=== PATIENT | female | born 1980 | race Caucasian/White ===

== ENCOUNTER 2023-10-27 07:53 | Outpatient (OUT) | payer BC, SELFPAY ==
--- NOTE | 2023-10-27 08:04 | MM_ITS ---
Patient Name: DELVIS SALCEDO MR#: [id number] : 1980 Exam Date: 10/27/2023 Ordering Doctor: DR Ra Potter D.O. RADIOLOGY REPORT PROCEDURE: MM TOMOSYNTHESIS SCREENING BI COMPARISON: MG MAMM SCREEN 3D ELIEL CAD, 04/23/2020. INDICATIONS: Screening mammogram Calculator Name NCI Breast Cancer Risk Assessment Tool 5 Year Breast Cancer Risk 1.20% Lifetime Breast Cancer Risk 14.20% Personal Breast Cancer No Personal Ovarian Cancer No Treatments None Family Cancers None LOCATION: [facility] BREAST COMPOSITION: The breasts are heterogeneously dense,which may obscure small masses. FINDINGS: DIAGNOSTIC CATEGORY 1--NEGATIVE. NO CHANGE FROM COMPARISON ASSESSMENT. Scattered benign-appearing calcifications are present. Scattered benign-appearing lymph nodes are present. RIGHT BREAST: No significant suspicious finding. LEFT BREAST: No significant suspicious finding. RECOMMENDATIONS: ROUTINE MAMMOGRAM AND CLINICAL EVALUATION IN 12 MONTHS. PLEASE NOTE: A NORMAL MAMMOGRAM DOES NOT EXCLUDE THE POSSIBILITY OF BREAST CANCER. A CLINICALLY SUSPICIOUS PALPABLE LUMP SHOULD BE BIOPSIED. Dictated by: Yandel Narvaez MD on 10/27/2023 at 12:10 Approved by: Yandel Narvaez MD on 10/27/2023 at 12:11
[2023-10-27 08:37] LABS: Basophils Percent Auto 0.6 % (0.2-2.0); Eosinophils Absolute Auto 0.1 10^3/uL (0.0-0.7); Hemoglobin 13.9 g/dL (12.0-16.0); Immature Granulocytes Abs Auto 0.01 10^3/uL (0.00-0.03); Immature Granulocytes Pct Auto 0.2 % (0.0-0.5); Lymphocytes Absolute Auto 1.8 10^3/uL (1.2-3.8); Mean Corpuscular HGB Conc 33.9 g/dL (29.9-35.2); Mean Corpuscular Hemoglobin 32.5 pg (26.7-34.0); Mean Corpuscular Volume 95.8 fL (81.0-99.0); Mean Platelet Volume 10.2 fL (9.5-13.5); Monocytes Absolute Auto 0.3 10^3/uL (0.3-0.8); Monocytes Percent Auto 6.3 % (1.7-12.0); Neutrophils Percent Auto 57.9 % (43.0-75.0); Platelet Count 210 10^3/uL (150-450); Red Blood Count 4.28 10^6/uL (4.20-5.40); Red Cell Distribution Width 12.6 % (11.0-15.0); White Blood Count 5.2 10^3/uL (4.0-11.0)
[2023-10-27 09:24] LABS: Alanine Aminotransferase 20 U/L (14-59); Albumin Globulin Ratio 1.1; Albumin Level 3.8 g/dL (3.4-5.0); Alkaline Phosphatase 51 U/L (46-116); Anion Gap 9.3; Aspartate Amino Transferase 19 U/L (15-37); BUN Creatinine Ratio 17.6; Bilirubin Total 0.6 mg/dL (0.2-1.0); Calcium 8.9 mg/dL (8.5-10.1); Carbon Dioxide 29.9 mmol/L (21.0-32.0); Chloride 100 mmol/L (98-107); Chol HDL Ratio 2.6; Cholesterol 183 mg/dL (<=200); Estimated GFR (African America >60 (>=60); Estimated GFR (Non-African Ame >60 (>=60); Globulin 3.4 g/dL; Glucose 104 mg/dL (74-106); HDL Cholesterol 70 mg/dL (40-60); Potassium 4.2 mmol/L (3.5-5.1); Sodium 135 mmol/L (136-145); Total Protein 7.2 g/dL (6.4-8.2); Triglycerides 81 mg/dL (<=150); VLDL CHOLESTEROL 16.2 mg/dL
== END 2023-10-27 07:54 | disposition home or self-care (01) ==
LOC: MAMMO 07:59
PROVIDERS: PCP Internal Medicine; Visit Provider Internal Medicine
DX: Z00.00 Encounter for general adult medical examination without abnormal findings (principal); Z12.31 Encounter for screening mammogram for malignant neoplasm of breast
CPT/HCPCS: 36415; 77063; 77067; 80053; 80061; 84443; 85025

== ENCOUNTER 2024-02-15 10:33 | Outpatient (REF) | payer BC, SELFPAY ==
--- OUTSIDE RECORDS SUMMARY | 2024-02-20 10:52 | XMS_ITS | CCD ---
Author Organization [facility] Team Providers Care Forensic Scientist Name Role Phone JUANITA DIAZ Unavailable Unavailable MAXWELL RAMIREZ Unavailable Unavailable MAXWELL RAMIREZ Unavailable Unavailable JAMES, MAXWELL Unavailable Unavailable Kitty Byrnes Unavailable Ra Potter MD Primary Care Provider Kade Chavez DO Attending Provider Medications Current Medications Medication Drug Class(es) Dates Sig (Normalized) Sig (Original) azithromycin 250 mg oral tablet (1 source) Macrolide Antimicrobial Start: 01-16-2021 Zithromax 250 MG 2 tablet on the first day, then 1 tablet daily for 4 days Orally Once a day for 5 day(s) Jan, Active benzonatate 100 mg oral capsule (1 source) Non-narcotic Antitussive Start: 01-16-2021 take 1 capsule by mouth three times daily as needed Tessalon Perles 100 MG 1 capsule as needed Orally Three times a day for 10 day(s) 1 capsule p.o. 3 times daily as needed for Jan, Active fluticasone propionate 0.05 mg/actuat metered dose nasal spray (1 source) Corticosteroid Start: 01-16-2021 take 2 spray(s) nasal route once daily Fluticasone Propionate 50 MCG/ACT 2 sprays Nasally Once a day for 14 day(s) Jan, Active Loratadine (1 source) Claritin Active predniSONE 20 mg oral tablet (1 source) Start: 01-16-2021 take 1 tablet by mouth every twelve hours predniSONE 20 MG 1 tablet Orally bid for 5 day(s) Jan, Active Completed/Discontinued Medications Medication Drug Class(es) Dates Sig (Normalized) Sig (Original) Childrens Vitamins 60 MG (1 source) take 1 tablet by mouth once daily Childrens Vitamins 60 MG 1 tablet Orally Once a day for 30 day(s) Not-Taking doxycycline hyclate 100 mg oral capsule (6 sources) Tetracycline-class Drug Start: 4 End: 4 take 1 capsule by mouth twice daily Doxycycline Hyclate 100 mg capsule Discontinued 100 MG PO Twice daily 14 September 26, 2023 12:17pm October 18, 2023 7:32am Fluticasone Furoate 27.5 MCG/SPRAY (1 source) Start: 1 take 2 puff(s) nasal route once daily Fluticasone Furoate 27.5 MCG/SPRAY 2 puffs Nasally Once a day Oct, Not-Taking methylPREDNISolone 4 mg oral tablet (4 sources) Corticosteroid Start: 4 End: 4 take 1 tablet by mouth once Methylprednisolone (Medrol (Jason)) 4 mg tablets,dose pack Discontinued 0 PO per package directions September 05, 2023 11:00pm September 11, 2023 8:41am PO PER PKG DIR mupirocin 0.02 mg/mg topical ointment (6 sources) RNA Synthetase Inhibitor Antibacterial Start: 4 End: 4 Mupirocin 2 % ointment Discontinued 1 APPLIC TOPICAL Twice daily 22 September 26, 2023 12:17pm October 18, 2023 7:42am triamcinolone acetonide 1 mg/ml topical cream (4 sources) Corticosteroid Start: 4 End: 4 Triamcinolone Acetonide 0.1 % cream Discontinued 1 APPLIC TOPICAL Twice daily 15 September 05, 2023 11:00pm October 18, 2023 7:42am Apply a thin layer to affected areas twice daily for 7 days Problems Active Problems Problem Classification Problem Date Documented Date Episodic/Chronic Bacterial infection; unspecified site (5 sources) Staphylococcal infectious disease; Translations: [Unspecified staphylococcus as the cause of diseases classified elsewhere] 09-19-2023 Episodic Conditions associated with dizziness or vertigo (5 sources) Labyrinthitis, unspecified ear; Translations: [Vertigo] Onset: 06-16-2017 09-06-2023 Episodic E Codes: Natural/environment (9 sources) Insect bite - wound; Translations: [Bitten or stung by nonvenomous insect and other nonvenomous arthropods, initial encounter] 09-06-2023 Episodic Menstrual disorders (9 sources) Menorrhagia; Translations: [Excessive and frequent menstruation with regular cycle] Onset: 02-15-2024 09-06-2023 Chronic Other screening for suspected conditions (not mental disorders or infectious disease) (6 sources) Patient encounter status; Translations: [Encounter for screening for malignant neoplasm of colon] 10-18-2023 Episodic Other skin disorders (3 sources) Folliculitis; Translations: [Follicular disorder, unspecified] 09-19-2023 Episodic Other skin disorders (1 source) Follicular disorder, unspecified; Translations: [Other specified diseases of hair and hair follicles] 10-18-2023 Episodic Screening or history of mental health and substance abuse (1 source) Personal history of nicotine dependence; Translations: [PERSONAL HISTORY OF NICOTINE DEPEND] Onset: 06-16-2017 Episodic Syncope (4 sources) Syncope and collapse; Translations: [SYNCOPE AND COLLAPSE] Onset: 06-14-2017 Episodic Past or Other Problems Problem Classification Problem Date Documented Da te Episodic/Chronic Allergic reactions (3 sources) Inflammatory dermatosis; Translations: [Dermatitis, unspecified] Onset: 09-19-2016 09-06-2023 Episodic Chronic obstructive pulmonary disease and bronchiectasis (1 source) Bronchitis, not specified as acute or chronic Onset: 01-16-2021 Resolved: 01-16-2021 Episodic Genitourinary symptoms and ill-defined conditions (3 sources) Increased frequency of urination; Translations: [Frequency of micturition] Onset: 08-24-2015 09-06-2023 Episodic Immunizations and screening for infectious disease (1 source) Contact with and (suspected) exposure to other viral communicable diseases Onset: 01-16-2021 Resolved: 01-16-2021 Episodic Malaise and fatigue (3 sources) Fatigue; Translations: [Other fatigue] Onset: 12-09-2015 09-06-2023 Episodic Other connective tissue disease (3 sources) Prepatellar bursitis of right knee; Translations: [Prepatellar bursitis, right knee] Onset: 10-12-2016 09-06-2023 Episodic Other skin disorders (5 sources) Hirsutism; Translations: [Hirsutism] Onset: 11-15-2006 09-06-2023 Episodic Other upper respiratory infections (1 source) Acute sinusitis, unspecified Onset: 01-16-2021 Resolved: 01-16-2021 Episodic Results Test Name Value Interpretation Reference Range Facility Endometrial biopsyon 025 Alejandra OconnorELIANE 02/15/2024 10:30 AM Endometrial biopsy Date/Time: 02/15/2024 10:17 AM Performed by: Kade Chavez DO Authorized by: Kade Chavez DO Consent: Consent obtained: written Consent given by: patient Patient agrees, verbalizes understanding, and wants to proceed: yes Indications: Indications: abnormal uterine bleeding Pre-procedure: Urine test: negative Procedure: A bimanual exam was performed: no Tenaculum used: yes A local block was performed: no Local anesthetic: none Cervix dilated: no Findings: Cervix: normal Specimen collected: specimen collected and sent to pathology [facility] [employer] e HCG ( test) Ql (U)o n 02-15-2024 Interpretation and review of laboratory results Normal [facility] [employer] ([place]) Preg Test, Ur Negative Negative [facility] magn[employer] e COVID Quick Testingon 2020 Result Negative edo Other CARDIAC KARLI ADMITon 018 CKMB 0.30 ng/mL Normal <=2.37 [facility] Comment on above: Performed By: #### B JIM MEHTA ####[facility] Btsgclxfkw27[address] [place] Creatine kinase (CK) 84 U/L Normal 30-135 [facility] Comment on above: Performed By: #### B JIM MEHTA ####[facility] [address]wt[address]df94[address] [place] [id number] INR Coag RelTime (Bld) SEE BELOW Normal [facility] Comment on above: Result Comment: <0.0 34 ng/ml NEGATIVE 0.034-0.119 INDETERMINATE 0.120 AMI CUT OFF Performed By: #### B JIM MEHTA ####[facility] Vnkcnbzmox5037 [place] [id number] SURINDER 43.1 ng/mL Normal <=61.5 [facility] Comment on above: Performed By: #### B JIM MEHTA ####[facility] Fqjfrddctj4608 [address] [place] TROP <0.012 Normal <=0.034 [facility] Comment on above: Performed By: #### B JIM MEHTA ####[facility] [address] [place] [address] [place] CBC W MANUAL DIFFon 06-15-19 18 BAND # 0.2 103/ul Normal 0.0-0.3 [facility] Comment on above: Performed By: #### Velma MEDRANO ####[facility] [address] [place] [address] [place] BAND % 3 % Normal 0-5 [facility] Comment on above: Performed By: #### Velma MEDRANO ####[facility] [address] [place] [address] [place] BASOM % 0.0 % Critically low 0.2-2.0 [facility] Comment on above: Performed By: #### Velma MEDRANO ####[facility] [address] [place] [address] [place] Basophils Auto #/vol (Bld) 0.00 103/ul Normal 0.00-0.10 [facility] Comment on above: Performed By: #### Velma MEDRANO ####[facility] [address] [place] [address] [place] BLAST # Normal [facility] Comment on above: Performed By: #### Velma MEDRANO ####[facility] [address] [place] [address] [place] BLAST % Normal [facility] Comment on above: Performed By: #### Velma MEDRANO ####[facility] [address] [place] [address] [place] Eosinophils 0.00 103/ul Normal 0.00-0.70 [facility] Comment on above: Performed By: #### Velma MEDRANO ####[facility] [address] [place], [place] [address]palak Roqueen Eosinophils/100 leukocytes 0.0 % Critically low 0.9-7.0 [facility] Comment on above: Performed By: #### C MITCHELL ####[facility] Ntezlqndpb2102 [address] [place] Erythrocyte distribution width Auto Ratio (RBC) 12.8 % Normal 11.0-15.0 [facility] Comment on above: Performed By: #### C MITCHELL ####[facility] [address] [place] [address] [place] Erythrocytes (RBC) 4.68 106/ul Normal 4.20-5.40 [facility] Comment on above: Performed By: #### C MITCHELL ####[facility] [address] [place] [address] [place] Erythrocytes (RBC) Normal [facility] Comment on above: Performed By: #### C MITCHELL ####[facility] [address] [place] [address] [place] Hematocrit (HCT) 43.0 % Normal 36.0-48.0 [facility] Comment on above: Performed By: #### C MITCHELL ####[facility] [address] [place] [address] [place] Hemoglobin mass conc (Bld) 14.8 g/dL Normal 12.0-16.0 [facility] Comment on above: Performed By: #### Velma MEDRANO ####[facility] [address] [place] [address] [place] Lymphocytes 0.66 103/ul Critically low 1.20-3.80 [facility] Comment on above: Performed By: #### Velma MEDRANO ####[facility] [address] [place] [address] [place] Lymphocytes Normal [facility] Comment on above: Performed By: #### C MITCHELL ####[facility] Rpgybegjcp3699 [address] [place] Lymphocytes/100 leukocytes 10.0 % Critically low 20.5-60.0 [facility] Comment on above: Performed By: #### Velma MEDRANO ####[facility] Vzakboarfd7746 [address] [place] Lymphocytes/100 leukocytes Normal [facility] Comment on above: Performed By: #### Velma MEDRANO ####[facility] Lgeohqynqn2361 [place] [id number] MCH 31.6 pg Normal 26.7-34.0 [facility] Comment on above: Performed By: #### Velma MEDRANO ####[facility] Oswwmdcfoh5070 [place] [id number] MCHC mass conc (RBC) 34.4 g/dL Normal 29.9-35.2 [facility] Comment on above: Performed By: #### Velma MEDRANO ####[facility] [address] [place] [address] [place] MCV 91.9 fL Normal 81.0-99.0 [facility] Comment on above: Performed By: #### Velma MEDRANO ####[facility] [address] [place] [address] [place] METAMYELOCYTE # Normal [facility] Comment on above: Performed By: #### Velma MEDRANO ####[facility] Vxndwsqmlv3786 [address] [place] METAMYELOCYTE % Normal [facility] Comment on above: Performed By: #### Velma MEDRANO ####[facility] [address] [place] [address] [place] MONOM# 0.40 103/ul Normal 0.30-0.80 [facility] Comment on above: Performed By: #### Velma MEDRANO ####[facility] Uijlfnxloa9087 [address] [place] MONOM% 6.0 % Normal 1.7-12.0 [facility] Comment on above: Performed By: #### Velma MEDRANO ####[facility] [address] [place] [address] [place] MYELOCYTE # Normal [facility] Comment on above: Performed By: #### Velma MEDRANO ####[facility] Tsmrqhuelc2294 [place], [place] [address]Njnvag [place] MYELOCYTE % Normal [facility] Comment on above: Performed By: #### Velma MEDRANO ####[facility] Dmyeohkduq8897 [place], [place] [address]Gvvwqy [place] Platelet mean volume (PMV) 11.3 fL Normal 9.5-13.5 [facility] Comment on above: Performed By: #### Velma MEDRANO ####[facility] Prtbhvmktu7974 [place], [place] [address]Xeaole [place] Platelets 137 103/ul Critically low 150-450 [facility] Comment on above: Performed By: #### Velma MEDRANO ####[facility] Qsyoutjxwl6706 [place] [id number] SEG # 5.35 103/ul Normal 1.40-6.50 [facility] Comment on above: Performed By: #### Velma MEDRANO ####[facility] Amultgfmrm0484 [place] [id number] Segmented Neutrophils/100 leukocytes 81.0 % Critically high 43.0-75.0 [facility] Comment on above: Performed By: #### Velma MEDRANO ####[facility] Ilmsybjswz1784 [place] [id number] WBC (Leukocytes) 6.6 103/ul Normal 4.0-11.0 [facility] Comment on above: Performed By: #### Velma MEDRANO ####[facility] Ypqpoqobhe1188 [place] [id number] WBC (Leukocytes) Normal 4.0-11.0 [facility] Comment on above: Performed By: #### Velma MEDRANO ####[facility] Chmcqmlaja3101 [place], [place] [address]Hwwvir [place] ER URINE PROFILEon 8 Bilirubin (total) Negative Normal NEGATIVE [facility] Comment on above: Performed By: #### MIRTA JAVED ####[facility] Evxteclcmg0476 [place], [place] [address]Vqvukb [place] BLOOD TRACE-INTACT Normal NEGATIVE [facility] Comment on above: Performed By: #### PATRICIO JAVEDRO ####[facility] Ozxeyimwdi1231 [address] [place] ERUAHD A micrscopic examination will be performed if indicated. Normal [facility] Comment on above: Performed By: #### PATRICIO JAVEDRO ####[facility] Rcglvjblec7636 [address] [place] Glucose mass conc Negative Normal NEGATIVE [facility] Comment on above: Performed By: #### CARLITA JAVEDICRO ####[facility] Fpmldypweg4440 [address] [place] pH of blood 6.0 [pH] Normal 5-9 [facility] Comment on above: Performed By: #### CARLITA JAVEDICRO ####[facility] Gogssdaqgt7712 [address] [place] Protein Negative Normal [facility] Comment on above: Performed By: #### CARLITA JAVEDICRO ####[facility] Nejxjswvpj8521 [address] [place] SPEC GRAVITY 1.025 Normal 1.005-<=1.025 [facility] Comment on above: Performed By: #### CARLITA JAVEDICRO ####[facility] [address] [place] [address] [place] UR MICRO IND INDICATED Normal [facility] Comment on above: Performed By: #### Tatum MORALES UMICRO ####[facility] Rxydwabsuc5628 [place] [id number] Urine, clarity CLEAR Normal [facility] Comment on above: Performed By: #### CARLITA JAVEDICRO ####[facility] Jpsavdsrae4892 [address] [place] Urine, color YELLOW Normal YELLOW [facility] Comment on above: Performed By: #### CARLITA JAVEDICRO ####[facility] Azjfkfvgyx3290 [address] [place] Urine, ketones presence Negative Normal NEGATIVE [facility] Comment on above: Performed By: #### MIRTA JAVED ####[facility] Stwvrawbfl[address]12 [address] [place] Urine, nitrite presence Negative Normal NEGATIVE [facility] Comment on above: Performed By: #### MIRTA JAVED ####[facility] [address] [place] [address] [place] Urine, urobilinogen 0.2 {Stephanie'U}/dL Normal [facility] Comment on above: Performed By: #### MIRTA JAVED ####[facility] X[address] [place] [address] [place] WBC (Leukocytes) Negative Normal NEGATIVE [facility] Comment on above: Performed By: #### MIRTA JAVED ####[facility] [address] [place] [address] [place] PREG HCG QUALon 06-14-2017 , QUAL Negative Normal NEGATIVE [facility] Comment on above: Performed By: #### P REG ####[facility] [address] [place] [address] [place] PROF CHEM 8 (BAS METB)on Anion gap 12.5 mmol/L Normal [facility] Comment on above: Performed By: #### B JIM MEHTA ####[facility] [address] [place] [address] [place] BUN/Creatinine Ratio 16.1 mg/mg Normal [facility] Comment on above: Performed By: #### B JIM MEHTA ####[facility] [address] [place] [address] [place] Calcium 9.6 mg/dL Normal 8.4-10.2 [facility] Comment on above: Performed By: #### B LEILA MEHTADM ####[facility] Ujufawgtou64[address] [place] Chloride 102 mmol/L Normal 98-107 [facility] Comment on above: Performed By: #### B TYSON, CMADM ####[facility] Wqqsdtgdgc9101 [place] [phone] CO2 26.0 mmol/L Normal 22.0-30.0 [facility] Comment on above: Performed By: #### B TYSON, CMADM ####[facility] Letseslxyh5182 [place] [phone] Creatinine 0.74 mg/dL Normal 0.52-1.04 [facility] Comment on above: Performed By: #### B TYSON, CMADM ####[facility] Khrezfkbpq8271 [place] [id number] eGFR (non-black) mL/min/{1.73_m2} Normal >=60 [facility] Comment on above: Performed By: #### B TYSON, CMADM ####[facility] Abfgtqqhwd1041 [place] [phone] Glucose mass conc 94 mg/dL Normal 74-106 [facility] Comment on above: Performed By: #### B TYSON, CMADM ####[facility] Jhblwibijh[address] [place] Potassium molar conc 4.2 mmol/L Normal 3.4-5.0 [facility] Comment on above: Performed By: #### B TYSON, CMADM ####[facility] Vbxxicskxd2197 [place] [phone] Sodium 137 mmol/L Normal 137-145 [facility] Comment on above: Performed By: #### B TYSON, CMADM ####[facility] Cmnwnnpego3042 [place] [phone] Urea nitrogen 12.0 mg/dL Normal 7.0-17.0 [facility] Comment on above: Performed By: #### B TYSON, CMADM ####[facility] Arxcrhjdcu2740 [place] [phone] URINE MICROSCOPIC ONLYon CAST NONE SEEN Normal NONE SEEN [facility] Comment on above: Performed By: #### MIRTA JAVED ####[facility] Idyhrmstkt9963 [place] [phone] CULTURE NOT INDICATED Normal [facility] Comment on above: Performed By: #### MIRTA JAVED ####[facility] Ehpztexwbs9228 [place], [place] [address]Dvcowq [place] Erythrocytes (RBC) 2-5 Normal 0-2 [facility] Comment on above: Performed By: #### MIRTA JAVED ####[facility] Xlipytnijm7329 [place], [place] [address]Kjlzde [place] MUCOUS MODERATE Normal NONE SEEN [facility] Comment on above: Performed By: #### MIRTA JAVED ####[facility] Qvvtherplf7911 [place] [phone] Urine, bacteria in sediment NONE SEEN Normal NONE SEEN [facility] Comment on above: Performed By: #### MIRTA JAVED ####[facility] [address] [place], [place] [address] Urine, crystals in sediment NONE SEEN Normal NONE SEEN [facility] Comment on above: Performed By: #### MIRTA JAVED ####[facility] Colowzplnr5380 [place] [phone] Urine, epithelial cells in sediment FEW Normal [facility] Comment on above: Performed By: #### MIRTA JAVED ####[facility] Ttssbcltrm9546 [place] [phone] WBC (Leukocytes) NONE SEEN Normal NONE SEEN [facility] Comment on above: Performed By: #### MIRTA JAVED ####[facility] [address] [place] [address]Cvjrsa [place] Vital Signs Date Time Vital Sign Value Performing Clinician Facility 02-15-2024 09:44-0500 Body mass index (BMI) [Ratio] 25.13 kg/m2 Kade Kathy Istpika Work Phone: [facility] 02-15-2024 09:44-0500 Body weight 68.49 kg Kade Kathy DO Work Phone: [facility] 02-15-2024 09:44-0500 Diastolic blood pressure 70 mm[Hg] Kade Kathy DO Work Phone: [facility] 02-15-2024 09:44-0500 Systolic blood pressure 118 mm[Hg] Kade Kathy DO Work Phone: [facility] 12-13-2023 13:53-0500 Body height 165.1 cm Kade Kathy DO Work Phone: [facility] 12-13-2023 13:53-0500 Body mass index (BMI) [Ratio] 24.1 kg/m2 Kade Kathy DO Work Phone: [facility] 12-13-2023 13:53-0500 Body weight 65.68 kg Kade Kathy DO Work Phone: [facility] 12-13-2023 13:53-0500 Diastolic blood pressure 70 mm[Hg] Kade Kathy DO Work Phone: [facility] 12-13-2023 13:53-0500 Systolic blood pressure 120 mm[Hg] Kade Kathy DO Work Phone: [facility] 10-18-2023 08:42-0400 Body height 165.1 cm [facility] [place] 10-18-2023 08:42-0400 Body mass index (BMI) [Ratio] 24.7 kg/m2 [facility] 10-18-2023 08:42-0400 Body weight 67.3 kg [facility] 10-18-2023 08:42-0400 Diastolic blood pressure 89 mm[Hg] [facility] 10-18-2023 08:42-0400 Heart rate 74 /min [facility] 10-18-2023 08:42-0400 Respiratory rate 12 /min [facility] 10-18-2023 08:42-0400 Systolic blood pressure 134 mm[Hg] [facility] 09-19-2023 08:58-0400 Body height 165.1 cm [facility] 09-19-2023 08:58-0400 Body mass index (BMI) [Ratio] 23.7 kg/m2 [facility] 09-19-2023 08:58-0400 Body weight 64.63 kg [facility] 09-19-2023 08:58-0400 Diastolic blood pressure 92 mm[Hg] [facility] 09-19-2023 08:58-0400 Heart rate 79 /min [facility] 09-19-2023 08:58-0400 Respiratory rate 12 /min [facility] 09-19-2023 08:58-0400 Systolic blood pressure 142 mm[Hg] [facility] 09-11-2023 09:40-0400 Body height 165.1 cm [facility] 09-11-2023 09:40-0400 Body mass index (BMI) [Ratio] 23.3 kg/m2 [facility] 09-11-2023 09:40-0400 Body temperature 99.4 [degF] [facility] 09-11-2023 09:40-0400 Body weight 63.5 kg [facility] 09-11-2023 09:40-0400 Heart rate 75 /min [facility] 09-11-2023 09:40-0400 Respiratory rate 18 /min [facility] 09-11-2023 09:40-0400 SaO2% (BldA) [Mass fraction] 99 % [facility] 09-06-2023 10:56-0400 Body height 165.1 cm [facility] 09-06-2023 10:56-0400 Body mass index (BMI) [Ratio] 23.3 kg/m2 [facility] 09-06-2023 10:56-0400 Body temperature 98.4 [degF] [facility] 09-06-2023 10:56-0400 Body weight 63.5 kg [facility] 09-06-2023 10:56-0400 Diastolic blood pressure 83 mm[Hg] [facility] 09-06-2023 10:56-0400 Heart rate 77 /min [facility] 09-06-2023 10:56-0400 Respiratory rate 18 /min [facility] 09-06-2023 10:56-0400 SaO2% (BldA) [Mass fraction] 98 % [facility] 09-06-2023 10:56-0400 Systolic blood pressure 132 mm[Hg] [facility] 01-16-2021 14:00-0500 Body height 165.1 cm Kitty Geemond Other [employer] [facility] [employer] Other 01-16-2021 14:00-0500 Body mass index (BMI) [Ratio] 20.8 kg/m2 Kitty Geemond Other [facility] Other 01-16-2021 14:00-0500 Body temperature 97.1 [degF] Kitty Geemond Other [employer] Other 01-16-2021 14:00-0500 Body weight 56.7 kg Kitty Byrnes Other [facility] Other 01-16-2021 14:00-0500 Respiratory rate 18 /min Kitty Byrnes Other [facility] Other 01-16-2021 14:00-0500 SaO2% (BldA) [Mass fraction] 99 % Kitty Geemond Other ed[employer] Other Encounters Encounter Date Encounter Type Care Provider Facility Start: 02-15-2024 End: 02-15-2024 Patient encounter procedure Kade Kathy DO Work Phone: [facility] Comment on above: Menorrhagia with reg ular cycle Start: 02-15-2024 End: 02-15-2024 ambulatory Kade Kathy DO Work Phone: [facility] Work Phone: Start: 02-15-2024 End: 02-15-2024 Departed Referred Kade Kathy DO Work Phone: [facility] Start: 12-13-2023 End: 12-13-2023 Bamboo flowsheet Kade Kathy DO Work Phone: [facility] Start: 12-13-2023 End: 12-13-2023 Bamboo flowsheet Kade Kathy DO Work Phone: [facility] Start: 12-13-2023 End: 12-13-2023 Office outpatient visit 15 minutes Kade Kathy DO Work Phone: [facility] Comment on above: Irregular menstrual bleeding Start: 10-18-2023 End: 10-18-2023 ambulatory [facility] Work Phone: Start: 10-18-2023 End: 10-18-2023 Encounter for general adult medical examination without abnormal findings [facility] Start: 10-18-2023 End: 10-18-2023 Patient encounter procedure [facility] Work Phone: Start: 10-15-2023 Patient encounter status [facility] Start: 09-19-2023 End: 09-19-2023 ambulatory [facility] Work Phone: Start: 09-19-2023 End: 09-19-2023 Patient encounter procedure [facility] Work Phone: Start: 09-11-2023 End: 09-11-2023 ambulatory [facility] Work Phone: Start: 09-11-2023 End: 09-11-2023 Patient encounter procedure [facility] Work Phone: Start: 09-06-2023 End: 09-06-2023 ambulatory [facility] Work Phone: Start: 09-06-2023 End: 09-06-2023 Patient encounter procedure [facility] Work Phone: Start: 01-16-2021 (URG) Urgent Care Visit Kitty Uriel izquierdo [facility] [place] Start: 01-16-2021 End: 01-16-2021 ambulatory Kitty Byrnes Other edo Other Start: 06-14-2017 End: 06-14-2017 Ambulatory JUANITA Winn DIAZ Facility: Procedures Date Procedure Procedure Detail Performing Clinician Start: 02-15-2024 ENDOMETRIAL BIOPSY Core y Kathy DO Work Phone: Start: 02-15-2024 Urine test visual color cmprsn meths Kade Kathy DO Work Phone: Plan of Treatment Date Care Activity Detail Author Start: 02-27-2024 End: 02-27-2024 Patient encounter procedure 02/27/2024 10:30 AM EST Consult [facility] [address] [place] [address] Kade Chavez, DO [address] [place] [address] [facility] Start: 02-21-2024 End: 02-21-2024 Professional / ancillary services management 02/21/2024 11:00 AM EST Ancillary Procedure [facility] [address] [place] [id number] [facility] Start: 02-15-2024 End: 02-14-2025 US Pelvis US Pelvis w/ TV Imaging Routine Menorrhagia with regular cycle Expected: 02/15/2024, Expires: 02/14/2025 [facility] Work Phone: Comment on above: Expected: 02/15/2024 , Expires: 02/14/2025 Start: 01-17-2024 End: 01-17-2024 Patient encounter procedure 01/17/2024 2:40 PM EST Consult [facility] [address] [place] [id number] Kade Chavez, DO [address] [place], [place] [id number] [facility] Start: 01-08-2024 End: 01-08-2024 Patient encounter procedure 01/08/2024 1:30 PM EST Procedure Visit [facility] [address] [place] [address] Kade Chavez, DO [address] [place], [place] [id number] [facility] Start: 12-13-2023 End: 12-12-2024 US for US PELVIS-TRANSVAG IF INDICATED Imaging Routine Irregular menstrual bleeding Expected: 12/13/2023 (Approximate), Expires: 12/12/2024 [facility] Work Phone: Comment on above: Expected: 12/13/2023 (Approximate), Expires: 12/12/2024 Comprehensive metabo lic 2000 panel - Serum or Plasma [facility] MG Breast - bilatera l Screening [facility] Payers Date Payer Category Payer [facility] BCBS [id number] 1961 Unknown [id number] Unknown [place] [employer]/BS [id number] Social History Date Type Detail Facility Sex Assigned At edo Other Start: 09-06-2023 End: 09-06-2023 Tobacco smoking status NHIS Never smoked tobacco (finding) [facility] Start: 1980 Sex Assigned At Female [facility] Tobacco smoking status VTIS Tobacco smoking consumption unknown [facility] Start: 12-13-2023 Gender identity Identifies as female gender (finding) [facility] Start: 02-17-2024 Sex Female (finding) [facility] History of Present illness Narrative 02-15-2024 Alejandra Oconnor LPN - 02/15/2024 9:30 AM EST Note Date & Type Note Facility 02-15-2024 History of Presen t illness Narrative Associated Order(s): Endometrial biopsy Pre-Procedure Diagnose(s): Menorrhagia with regular cycle Post-Procedure Diagnose(s): Menorrhagia with regular cycle Reason for Appointment: Patient ID: Debbie Rosario is a 44 y.o. female who presents for Menorrhagia Patient presents today for a Endometrial Biopsy appointment. MEDICATIONS No current outpatient medications ALLERGIES No Known Allergies SURGICAL HISTORY No past surgical history on file. REVIEW OF SYSTEMS Review of Systems: Review of Systems Genitourinary: Positive for vaginal bleeding. All other systems reviewed and are negative. OBJECTIVE Objective: Physical Exam Constitutional: Appearance: Normal appearance. She is well-developed. Genitourinary: Vulva normal. Cardiovascular: Rate and Rhythm: Normal rate and regular rhythm. Pulmonary: Effort: Pulmonary effort is normal. Breath sounds: Normal breath sounds. Abdominal: General: Bowel sounds are normal. There is no distension. Palpations: Abdomen is soft. Tenderness: There is no abdominal tenderness. There is no guarding or rebound. Musculoskeletal: General: No swelling. Normal range of motion. Right lower leg: No edema. Left lower leg: No edema. Neurological: Mental Status: She is alert and oriented to person, place, and time. Skin: General: Skin is warm and dry. Psychiatric: Mood and Affect: Mood normal. Behavior: Behavior normal. Vitals and nursing note reviewed. Exam conducted with a highway worker present. Vitals: Estimated body mass index is 25.13 kg/m as calculated from the following: Height as of 24: 5' 5 . Weight as of this encounter: 151 lb. BP: 118/70 Patient's last menstrual period was 02/15/2024 (exact date). ASSESSMENT & PLAN Assessment/Plan Encounter Diagnosis: ICD-10-CM 1. Menorrhagia with regular cycle N92.0 Endometrial biopsy POCT , urine manually resulted US Pelvis w/ TV Endometrial biopsy Date/Time: 02/15/2024 10:17 AM Performed by: Kade Chavez DO Authorized by: Kade Chavez DO Consent: Consent obtained: written Consent given by: patient Patient agrees, verbalizes understanding, and wants to proceed: yes Indications: Indications: abnormal uterine bleeding Pre-procedure: Urine test: negative Procedure: A bimanual exam was performed: no Tenaculum used: yes A local block was performed: no Local anesthetic: none Cervix dilated: no Findings: Cervix: normal Specimen collected: specimen collected and sent to pathology EMBX: Patient was placed in dorsal lithotomy position with feet in stirrups. A sterile speculum was placed into the vagina and the cervix was visualized. The cervix was grasped with a single tooth tenaculum. The endometrial pipette was placed through the cervix into the uterus, endometrial curettage was performed and sampling was obtained, endometrial curettings were placed in formalin, and single tooth tenaculum was removed. Excellent hemostasis was assured. All instruments were removed from vagina. Follow Up: Patient is to return in 2 weeks for annual/pre-op appointment. Patient to also have pelvic ultrasound done prior to next in office appointment. Documented by Alejandra Oconnor LPN on behalf of: Kade Chavez DO documented in this encounter [facility] History of Present illness Narrative 12-13-2023 Jane Samson LPN - 12/13/2023 1:40 PM EST Note Date & Type Note Facility 12-13-2023 History of Presen t illness Narrative Reason for Appointment: Patient ID: Debbie Rosario is a 43 y.o. female who presents for Menstrual Problem Patient presents today for Acute Visit. MEDICATIONS No current outpatient medications ALLERGIES No Known Allergies PROBLEMS Active Ambulatory Problems Diagnosis Date Noted No Active Ambulatory Problems Resolved Ambulatory Problems Diagnosis Date Noted No Resolved Ambulatory Problems No Additional Past Medical History HISTORY PAST MEDICAL HISTORY SOCIAL HISTORY History reviewed. No pertinent past medical history. Social History Tobacco Use Smoking status: Not on file Smokeless tobacco: Not on file Substance Use Topics Alcohol use: Not on file Drug use: Not on file FAMILY HISTORY No family history on file. SURGICAL HISTORY History reviewed. No pertinent surgical history. REVIEW OF SYSTEMS Review of Systems: Review of Systems Constitutional: Negative. HENT: Negative. Eyes: Negative. Respiratory: Negative. Cardiovascular: Negative. Gastrointestinal: Negative. Genitourinary: Negative. Musculoskeletal: Negative. Skin: Negative. Neurological: Negative. All other systems reviewed and are negative. Hematological: Negative. Endocrine: Negative. Allergic/Immunologic: Negative. OBJECTIVE Objective: Physical Exam Constitutional: Appearance: Normal appearance. She is well-developed. Cardiovascular: Rate and Rhythm: Normal rate and regular rhythm. Pulmonary: Effort: Pulmonary effort is normal. Breath sounds: Normal breath sounds. Abdominal: General: Bowel sounds are normal. There is no distension. Palpations: Abdomen is soft. Tenderness: There is no abdominal tenderness. There is no guarding or rebound. Musculoskeletal: General: No swelling. Normal range of motion. Right lower leg: No edema. Left lower leg: No edema. Neurological: Mental Status: She is alert and oriented to person, place, and time. Skin: General: Skin is warm and dry. Psychiatric: Mood and Affect: Mood normal. Behavior: Behavior normal. Vitals and nursing note reviewed. Exam conducted with a highway worker present. Vitals: Estimated body mass index is 24.1 kg/m as calculated from the following: Height as of this encounter: 5' 5 . Weight as of this encounter: 144 lb 12.8 oz. BP: 120/70 Patient's last menstrual period was 12/06/2023. ASSESSMENT & PLAN ICD-10-CM 1. Irregular menstrual bleeding N92.6 Pt presents with abnormal heavy bleeding. Pt had labs obtained from Dr Potter in October. Discussed all options with pt in detail. Partner had vasectomy - discussed mirena IUD and or Ablation. Pt given ultrasound to have obtained Pt desires surgical management at this time. Pt to return for annual and return for preop embx. Documented by Jane Samson LPN on behalf of: Kade Chavez DO documented in this encounter [facility] Evaluation note 01-16-2021 Note Date & Type Note Facility 01-16-2021 Evaluation note Encounter Date Diagnosis Assessment Notes Jan, Contact with and (suspected) exposure to other viral communicable diseases (ICD-10 - Z20.828) Jan, Bronchitis (ICD-10 - J40) Drink plenty fluids, get plenty of rest. Take the Zithromax as prescribed until gone. Take the prednisone as prescribed until gone. Use the Tessalon Perles as prescribed as needed for cough. Use the Flonase inhaler as prescribed as needed for nasal congestion until your symptoms improve. Tylenol or Motrin for aches pains or fevers. Follow-up with your family physician if no improvement in 2 to 3 days. Jan, Acute sinusitis, recurrence not specified, unspecified location (ICD-10 - J01.90) Jan, Other Additional time spent conducting pre-visit phone call, screening for symptoms, instructions on social distancing, application and removal of PPE, and cleaning of examination room, equipment and supplies was preformed. Patient education given for testing methodology and results. Patient care instructions given in writting by [facility] document. edo Other Evaluation note Note Date & Type Note Facility Evaluation note No assessment information availa [facility] Work Phone: Evaluation note Note Date & Type Note Facility Evaluation note Diagnosis Onset Date Insect bites acute Insect bites [facility] Work Phone: Evaluation note Note Date & Type Note Facility Evaluation note Diagnosis Onset Date Insect bites acute Insect bites acute Staph infection acute Bug bite with infection none active [facility] Work Phone: Evaluation note Note Date & Type Note Facility Evaluation note Diagnosis Onset Date Staph infection acute Bug bite with infection none active Folliculitis acute Screening for colon cancer a cute Screening mammogram for breast cancer acute Wellness examination [facility] Work Phone: Evaluation note Note Date & Type Note Facility Evaluation note Diagnosis Irregular menstrual bleeding Irregular menstrual cycle documented in this encounter [facility] Evaluation note Note Date & Type Note Facility Evaluation note Diagnosis Menorrhagia with regular cycle documented in this encounter [facility] History general Narrative - Reported Note Date & Type Note Facility History general Narrative - Reported Type Medical History vertigo edo Other Summary Purpose Family History No Family History Records Found Advance Directives Advance Directive Response Recorded Date/ Time Advance Directives No September 05 10:50am Advance Directive Response Recorded Date/ Time Advance Directives No September 05 9:50am Chief Complaint and Reason for Visit Chief Complaint Rash on legs Chief Complaint Rash on legs Rash - was here 6 days ago Reason for Visit Insect bites Insect bites Chief Complaint Rash on legs Rash - was here 6 days ago [facility] follow up for bites on legs Reason for Visit Insect bites Insect bites Staph infection Bug bite with infection Chief Complaint Rash on legs Rash - was here 6 days ago [facility] follow up for bites on legs wellness Reason for Visit Staph infection Bug bite with infection Folliculitis Screening for colon cancer Screening mammogram for breast cancer Wellness examination Chief Complaint Admit Date Unknown February 15, 2024 9: 00am Additional Source Comments INFORMATION SOURCE (unrecogn ized section and content) DATE CREATED AUTHOR 07/26/2017 [employer] REASON FOR VISIT (unrecogniz ed section and content) Reason Comments Menstrual Problem Reason Comments Menorrhagia Care Teams (unrecognized sec tion and content) Team Status: Active Member Role Status Dates Davina Razo APRN MANAGER REHAB-C Primary Care Provider Active Team Status: Inactive Member Role Status Dates Davina Razo APRN MANAGER REHAB-C Primary Care Provider Active Start: September 06, 2023 End: September 06, 2023 Lisa Guardado APRN Attending Provider Active S tart: September 06, 2023 End: September 06, 2023 Team Status: Inactive Member Role Status Dates Davina Razo APRN NP-C Primary Care Provider Active Start: September 11, 2023 End: September 11, 2023 Lisa Guardado APRN Attending Provider Active S tart: September 11, 2023 End: September 11, 2023 Team Status: Inactive Member Role Status Dates Davina Rohrbacher , INTERNAL SECURITY MANAGER MANAGER REHAB-C Primary Care Provider Active Start: September 06, 2023 End: September 06, 2023 Lisa DIAS APRN Attending Provider Active Start: September 06, 2023 End: September 06, 2023 Team Status: Inactive Member Role Status Dates Davina Razo APRN MANAGER REHAB-C Primary Care Provider Active Start: September 11, 2023 End: September 11, 2023 Lisa DIAS APRN Attending Provider Active Start: September 11, 2023 End: September 11, 2023 Team Status: Inactive Member Role Status Dates Davina Razo APRN MANAGER REHAB-C Primary Care Provider Active Start: September 19, 2023 End: September 19, 2023 Ra Potter DO Attending Provider Active Sta rt: September 19, 2023 End: September 19, 2023 Team Status: Inactive Member Role Status Dates Davina Razo APRN MANAGER REHAB-C Primary Care Provider Active Start: October 072023 End: October 18, 2023 Ra Potter DO Attending Provider Active Sta rt: October 18, 2023 End: October 18, 2023 Forensic Scientist Relationship Specialty Start Date End Date Ra Potter MD [address] [place] [address] PCP - General Internal Medicine 12/13/23 Forensic Scientist Relationship Specialty Start Date End Date Ra Potter MD [address] [place] [address] PCP - General Internal Medicine 12/13/23 Forensic Scientist Relationship Specialty Start Date End Date Ra Potter MD [address] [place] [id number] PCP - General Internal Medicine 12/13/23 Team Status: Inactive Member Role Status Dates Kade Chavez DO Attending Provider Active Start : February 15, 2024 End: February 15, 2024 Goals (unrecognized section and content) Goals may be documented in a n alternate section FOR RECORDS PERTAINING TO PATIENTS WHO ARE OR HAVE BEEN ENROLLED IN A CHEMICAL DEPENDENCY/SUBSTANCEABUSE PROGRAM, SOME INFORMATION MAY BE OMITTED. This clinical summary was aggregated from multiple sources. Caution should be exercised in using it in the provision of clinical care. This summary normalizes information from multiple sources, and as a consequence, information in this document may materially change the coding, format and clinical context of patient data. In addition, data may be omitted in some cases. CLINICAL DECISIONS SHOULD BE BASED ON THE PRIMARY CLINICAL RECORDS. [facility] [employer] [facility]. provides no warranty or guarantee of the accuracy or completeness of information in this document.
== END 2024-02-15 10:34 | disposition home or self-care (01) ==
LOC: LAB 10:33
PROVIDERS: PCP Internal Medicine; Visit Provider Obstetrics & Gynecology
DX: N92.0 Excessive and frequent menstruation with regular cycle (principal)
CPT/HCPCS: 88305

== ENCOUNTER 2024-02-27 08:53 | Outpatient (REF) | payer BC, SELFPAY ==
--- OUTSIDE RECORDS SUMMARY | 2024-02-28 08:58 | XMS_ITS | CCD ---
Author Organization [facility] Care Team Providers Care Novelty Dipper Name Role Phone JUANITA DIAZ Unavailable Unavailable MAXWELL RAMIREZ Unavailable Unavailable MAXWELL RAMIREZ Unavailable Unavailable JAMES, MAXWELL Unavailable Unavailable Kitty Byrnes Unavailable Ra Potter MD Primary Care Provider Kade Chavez DO Attending Provider Kade Chavez Attending Unavailable Kade Chavez Admitting Unavailable Medications Current Medications Medication Drug Class(es) Dates [...] arthropods, initial encounter] 09-06-2023 Episodic Menstrual disorders (10 sources) Menorrhagia; Translations: [Excessive and frequent menstruation [...] Reference Range Facility Endometrial biopsyon 025 Alejandra ContiELIANE loaiza 02/15/2024 10:30 AM Endometrial biopsy Date/Time: 02/15/2024 [...] collected: specimen collected and sent to pathology [facility] e HCG ( test) Ql (U)o n 02-15-2024 Interpretation and review of laboratory results Normal [facility] re Preg Test, Ur Negative Negative On license of [facility] e [place] 02-15-2024 L Specimen: [id number] Received: 02/16/24 Status: NGHIA Aden Num: [id number] Spec Type: Surgical Subm Dr: Kade Chavez Tissues: A Endometrium - Biopsy (EMBX) Procedures: HE/2, Gross/Micro L4 Age/ Patient Sex Location Account Attending Physician Debbie Rosario 44/F [place] [id number] Kade Chavez SPEC NUM: [id number] RECD: 02/16/24 STATUS: NGHIA ADEN NUM: [id number] RIO: 02/15/24 DR: Kade Chavez ENTERED: 02/16/[address] [facility] [address]: Paolo Benitez SPEC TYPE: Surgical DEPT: GIGI DOBBINS ENTERED BY: [id number] RECV BY: [id number] ORDERED: HE/2, Gross/Micro L4 ORDERED: HE/2, Gross/Micro L4 Pathological Diagnosis Endometrial biopsy: -Slightly disordered proliferative endometrium of at least early phase type without hyperplasia or atypia -Possible 1 tiny biopsy piece of benign endometrial polyp is also suspected (1 mm) Clinical Information Menorrhagia Gross Description Part A is received in formalin labeled with the patients name, date of , and EMBX are torres-pink, focally erythematous, delicate tissue fragments, 2.5 x 1.3 x 0.2 cm in aggregate. The specimen is filtered and entirely submitted in a single cassette. (1, corrina, [id number]) J Microscopic Description Microscopic examinations are performed supporting the above interpretation Specimen: [id number] Received: 02/16/24 Status: NGHIA Aden Num: [id number] Spec Type: Surgical Subm Dr: Kade Chavez Tissues: A Endometrium - Biopsy (EMBX) Procedures: HE/2, Gross/Micro L4 Patient: Debbie Rosario [id number] (Continued) Specimen: [id number] Received: 02/16/24 (Continued) Signed (signatur e on file) Leigh Taylor MD 02/19/24 1608 Specimen: [id number] Received: 02/16/24 Status: NGHIA Aden Num: [id number] Spec Type: Surgical Subm Dr: Kade Chavez Tissues: A Endometrium - Biopsy (EMBX) Procedures: KATHY/Bharat Richard/Micro L4 Patient: Debbie Rosario [id number] (Continued) Specimen: [id number] Received: 02/16/24 (Continued) CPT Codes 85383 Specimen: [id number] Received: 02/16/24 Status: NGHIA Aden Num: [id number] Spec Type: Surgical Subm Dr: Kade Chavez Tissues: A Endometrium - Biopsy (EMBX) Procedures: KATHYJose Manuel, Bharat/Micro L4 Patient: Debbie Rosario [id number] (Continued) Signed (signatur e on file) Isak-Yasir Taylor MD 02/19/24 1608 Normal [facility] COVID Quick Testingon 2020 Result Negative Colatris Other CARDIAC KARLI ADMITon 018 CKMB 0.30 ng/mL Normal <=2.37 [facility] Comment on above: Performed By: #### B JIM MEHTA ####[facility] Fqjtgnlbvz0932 [address] [place] Creatine kinase (CK) 84 U/L Normal 30-135 [facility] Comment on above: Performed By: #### B JIM MEHTA ####[facility] Aaqlhketlc0239 [address] [place] INR Coag RelTime (Bld) SEE BELOW Normal [facility] Comment on above: Result Comment: <0.0 34 ng/ml NEGATIVE 0.034-0.119 INDETERMINATE 0.120 AMI CUT OFF Performed By: #### B JIM MEHTA ####[facility] Nelmjfzigw6849 [address] [place] SURINDER 43.1 ng/mL Normal <=61.5 [facility] Comment on above: Performed By: #### B JIM MEHTA ####[facility] Ylgrubrfye2631 [address] [place] TROP <0.012 Normal <=0.034 [facility] Comment on above: Performed By: #### B JIM MEHTA ####[facility] [address] [place] [address] [place] CBC W MANUAL DIFFon 06-15-19 18 BAND # 0.2 103/ul Normal 0.0-0.3 [facility] Comment on above: Performed By: #### Velma MEDRANO ####[facility] Z[address] [place] [address] [place] BAND % 3 % Normal 0-5 [facility] Comment on above: Performed By: #### Velma MEDRANO ####[facility] Ort[address] [place] [address] [place] BASOM % 0.0 % Critically low 0.2-2.0 [facility] Comment on above: Performed By: #### Velma MEDRANO ####[facility] [address] [place] [address] [place] Basophils Auto #/vol (Bld) 0.00 103/ul Normal 0.00-0.10 [facility] Comment on above: Performed By: #### Velma MEDRANO ####[facility] W[address] [place] [address] [place] BLAST # Normal [facility] Comment on above: Performed By: #### Velma MEDRANO ####[facility] Kqwkomaa[address] [place] [address] [place] BLAST % Normal [facility] Comment on above: Performed By: #### Velma MEDRANO ####[facility] Grwqhwjtat[address] [place] [address] [place] Eosinophils 0.00 103/ul Normal 0.00-0.70 [facility] Comment on above: Performed By: #### Velma MEDRANO ####[facility] Ik[address] [place] [address] [place] Eosinophils/100 leukocytes 0.0 % Critically low 0.9-7.0 [facility] Comment on above: Performed By: #### C MITCHELL ####[facility] Here[address]vbwt[address] [place] [address] [place] Erythrocyte distribution width Auto Ratio (RBC) 12.8 % Normal 11.0-15.0 [facility] Comment on above: Performed By: #### C MITCHELL ####[facility] [address] [place] [address] [place] Erythrocytes (RBC) 4.68 106/ul Normal 4.20-5.40 [facility] Comment on above: Performed By: #### C MITCHELL ####[facility] Efcufjwbkk[address] [place] [address] [place] Erythrocytes (RBC) Normal [facility] Comment on above: Performed By: #### Velma MEDRANO ####[facility] [address]ftcnk[address] [place] [address] [place] Hematocrit (HCT) 43.0 % Normal 36.0-48.0 [facility] Comment on above: Performed By: #### Velma MEDRANO ####[facility] [address]we[address] [place] [address] [place] Hemoglobin mass conc (Bld) 14.8 g/dL Normal 12.0-16.0 [facility] Comment on above: Performed By: #### Velma MEDRANO ####[facility] [address] [place] [address] [place] Lymphocytes 0.66 103/ul Critically low 1.20-3.80 [facility] Comment on above: Performed By: #### Velma MEDRANO ####[facility] Eodtsky[address] [place] [address] [place] Lymphocytes Normal [facility] Comment on above: Performed By: #### C MITCHELL ####[facility] Imicobspgk[address] [place] [address] [place] Lymphocytes/100 leukocytes 10.0 % Critically low 20.5-60.0 [facility] Comment on above: Performed By: #### Velma MEDRANO ####[facility] Ctkokaohmr9065 [address] [place] Lymphocytes/100 leukocytes Normal [facility] Comment on above: Performed By: #### Velma MEDRANO ####[facility] Fkacjtrkwk3402 [address] [place] MCH 31.6 pg Normal 26.7-34.0 [facility] Comment on above: Performed By: #### Velma MEDRANO ####[facility] Oxpsuflcdh6749 [address] [place] MCHC mass conc (RBC) 34.4 g/dL Normal 29.9-35.2 [facility] Comment on above: Performed By: #### Velma MEDRANO ####[facility] [address] [place] [address] [place] MCV 91.9 fL Normal 81.0-99.0 [facility] Comment on above: Performed By: #### Velma MEDRANO ####[facility] [address] [place] [address] [place] METAMYELOCYTE # Normal [facility] Comment on above: Performed By: #### Velma MEDRANO ####[facility] [address] [place] [address] [place] METAMYELOCYTE % Normal [facility] Comment on above: Performed By: #### Velma MEDRANO ####[facility] Obiljcimua2690 [address] [place] MONOM# 0.40 103/ul Normal 0.30-0.80 [facility] Comment on above: Performed By: #### Velma MEDRANO ####[facility] Xifuhfonfz8854 [address] [place] MONOM% 6.0 % Normal 1.7-12.0 [facility] Comment on above: Performed By: #### Velma MEDRANO ####[facility] Urxxkathxz[address] [place] [address] [place] MYELOCYTE # Normal [facility] Comment on above: Performed By: #### C BCMAN ####[facility] Qqkvazmyzu6280 [place], [place] [address]Cwgiar [place] MYELOCYTE % Normal [facility] Comment on above: Performed By: #### Velma MEDRANO ####[facility] Qcjiseizxp1434 [place], [place] [address]Gixcoq [place] Platelet mean volume (PMV) 11.3 fL Normal 9.5-13.5 [facility] Comment on above: Performed By: #### Velma MEDRANO ####[facility] [address] [place] [id number] [place] Platelets 137 103/ul Critically low 150-450 [facility] Comment on above: Performed By: #### Velma MEDRANO ####[facility] [address] [place], [place] [address] SEG # 5.35 103/ul Normal 1.40-6.50 [facility] Comment on above: Performed By: #### Velma MEDRANO ####[facility] Aw[address] [place], [place] [address] Segmented Neutrophils/100 leukocytes 81.0 % Critically high 43.0-75.0 [facility] Comment on above: Performed By: #### Vlema MEDRANO ####[facility] Uxridkoazl[address] [place] [id number] WBC (Leukocytes) 6.6 103/ul Normal 4.0-11.0 [facility] Comment on above: Performed By: #### Velma MEDRANO ####[facility] Ieslvjgern7814 [place] [id number] WBC (Leukocytes) Normal 4.0-11.0 [facility] Comment on above: Performed By: #### Velma MEDRANO ####[facility] Uwqxyecsia9178 [place], [place] [address]Pgjovi [place] ER URINE PROFILEon 8 Bilirubin (total) Negative Normal NEGATIVE The [facility] Comment on above: Performed By: #### MIRTA JAVED ####[facility] Qmcscroqwm7967 [place], [place] [address]Hygazg [place] BLOOD TRACE-INTACT Normal NEGATIVE [facility] Comment on above: Performed By: #### PATRICIO JAVEDRO ####[facility] Qekrncgrei[address] [place] [id number] ERUAHD A micrscopic examination will be performed if indicated. Normal [facility] Comment on above: Performed By: #### PATRICIO JAVEDRO ####[facility] Qcpfrgnpvn7925 [address] [place] Glucose mass conc Negative Normal NEGATIVE [facility] Comment on above: Performed By: #### PATRICIO JAVEDRO ####[facility] Atvcwsnblr4900 [address] [place] pH of blood 6.0 [pH] Normal 5-9 [facility] Comment on above: Performed By: #### PATRICIO JAVEDRO ####[facility] Pxnlbfrdav0808 [address] [place] Protein Negative Normal [facility] Comment on above: Performed By: #### PATRICIO JAVEDRO ####[facility] Uppfrabbpi4148 [address] [place] SPEC GRAVITY 1.025 Normal 1.005-<=1.025 [facility] Comment on above: Performed By: #### PATRICIO JAVEDRO ####[facility] [address]fe[address] [place] [address] [place] UR MICRO IND INDICATED Normal [facility] Comment on above: Performed By: #### PATRICIO JAVEDRO ####[facility] Gwumjxfjhn94[address] [place] [id number] Urine, clarity CLEAR Normal [facility] Comment on above: Performed By: #### PATRICIO JAVEDRO ####[facility] Lwbdpnwjso0387 [address] [place] Urine, color YELLOW Normal YELLOW [facility] Comment on above: Performed By: #### PATRICIO JAVEDRO ####[facility] Sbcbkxhaep8542 [address] [place] Urine, ketones presence Negative Normal NEGATIVE [facility] Comment on above: Performed By: #### MIRTA JAVED ####[facility] Gmkeddjjlu9671 [address] [place] Urine, nitrite presence Negative Normal NEGATIVE [facility] Comment on above: Performed By: #### MIRTA JAVED ####[facility] Czqwiiqdqt9973 [address] [place] Urine, urobilinogen 0.2 {Stephanie'U}/dL Normal [facility] Comment on above: Performed By: #### MIRTA JAVED ####[facility] [address]fmhar[address] [place] [address] [place] WBC (Leukocytes) Negative Normal NEGATIVE [facility] Comment on above: Performed By: #### MIRTA JAVED ####[facility] Cob[address]zcnb[address] [place] [address] [place] PREG HCG QUALon 06-14-2017 , QUAL Negative Normal NEGATIVE The [facility] Comment on above: Performed By: #### P REG ####[facility] Civblmkidk[address] [place] [address] [place] PROF CHEM 8 (BAS METB)on Anion gap 12.5 mmol/L Normal [facility] Comment on above: Performed By: #### B JIM MEHTA ####[facility] [address] [place] [address] [place] BUN/Creatinine Ratio 16.1 mg/mg Normal [facility] Comment on above: Performed By: #### B JIM MEHTA ####[facility] Iuicivzrep0785 [address] [place] Calcium 9.6 mg/dL Normal 8.4-10.2 [facility] Comment on above: Performed By: #### B TYSON CMADM ####[facility] Frqvpuyyck1492 [address] [place] Chloride 102 mmol/L Normal 98-107 [facility] Comment on above: Performed By: #### B TYSON, CMADM ####[facility] Ltmjqmfdny2233 [place], [place] [address]Jjcdcp [place] CO2 26.0 mmol/L Normal 22.0-30.0 [facility] Comment on above: Performed By: #### B TYSON, CMADM ####[facility] Dwrroxgoez1394 [place], [place] [address]Hpwxpw [place] Creatinine 0.74 mg/dL Normal 0.52-1.04 [facility] Comment on above: Performed By: #### B TYSON, CMADM ####[facility] Yyuflctpgw7152 [place], [place] [address]Fycecd [place] eGFR (non-black) mL/min/{1.73_m2} Normal >=60 [facility] Comment on above: Performed By: #### B TYSON, CMADM ####[facility] Telugwqftl40[address] [place] [id number] Glucose mass conc 94 mg/dL Normal 74-[address] [facility] Comment on above: Performed By: #### B TYSON, CMADM ####[facility] Hulohyxsml8460 [place] [id number] Potassium molar conc 4.2 mmol/L Normal 3.4-5.0 [facility] Comment on above: Performed By: #### B TYSON, CMADM ####[facility] Dklybmcbpa5515 [place] [id number] Sodium 137 mmol/L Normal 137-145 [facility] Comment on above: Performed By: #### B TYSON, CMADM ####[facility] Mclotwevna3539 [place] [id number] Urea nitrogen 12.0 mg/dL Normal 7.0-17.0 [facility] Comment on above: Performed By: #### B TYSON, CMADM ####[facility] Ckrpyqyrke8613 [place], [place] [address]Jyidkd [place] URINE MICROSCOPIC ONLYon CAST NONE SEEN Normal NONE SEEN The [facility] Comment on above: Performed By: #### E TEOR, UMICRO ####[facility] Tgvvhhayte1088 [place], [place] [address]Vvxdjm [place] CULTURE NOT INDICATED Normal The [facility] Comment on above: Performed By: #### MIRTA JAVED ####[facility] Tmkschpzpz4949 [place], [place] [address]Wzkimq [place] Erythrocytes (RBC) 2-5 Normal 0-2 [facility] Comment on above: Performed By: #### MIRTA JVAED ####[facility] Sdyxyujkoa8104 [place], [place] [address]Djbmzv [place] MUCOUS MODERATE Normal NONE SEEN [facility] Comment on above: Performed By: #### MIRTA JAVED ####[facility] Wjqyyezwot3390 [place], [place] [address]Nvbouj [place] Urine, bacteria in sediment NONE SEEN Normal NONE SEEN [facility] Comment on above: Performed By: #### MIRTA JAVED ####[facility] Yohjvvvayo2101 [place], [place] [address]Mohoad [place] Urine, crystals in sediment NONE SEEN Normal NONE SEEN [facility] Comment on above: Performed By: #### MIRTA JAVED ####[facility] Gswfenvylr5731 [place], [place] [address]Fmenik [place] Urine, epithelial cells in sediment FEW Normal [facility] Comment on above: Performed By: #### MIRTA JAVED ####[facility] Ikuisihxvn1328 [place] [phone] WBC (Leukocytes) NONE SEEN Normal NONE SEEN [facility] Comment on above: Performed By: #### MIRTA JAVED ####[facility] K[address]qth[address]shu26[address] [place], [place] [address]Kiqghc [place] Vital Signs Date Time Vital Sign Value Performing Clinician Facility 02-15-2024 09:44-0500 Body mass index (BMI) [Ratio] 25.13 kg/m2 Kade Chavez DO Work Phone: [facility] 02-15-2024 09:44-0500 Body weight 68.49 kg Kade Kathy DO Work Phone: [facility] 02-15-2024 09:44-0500 Diastolic blood pressure 70 mm[Hg] Kade Kathy DO Work Phone: [facility] 02-15-2024 09:44-0500 Systolic blood pressure 118 mm[Hg] Kade Kathy DO Work Phone: [facility] 12-13-2023 13:53-0500 Body height 165.1 cm Kade Kathy DO Work Phone: [facility] 12-13-2023 13:53-0500 Body mass index (BMI) [Ratio] 24.1 kg/m2 Kade Kathy DO Work Phone: [facility] 12-13-2023 13:53-0500 Body weight 65.68 kg Kade Kathy DO Work Phone: [facility] 12-13-2023 13:53-0500 Diastolic blood pressure 70 mm[Hg] Kade Kathy DO Work Phone: [facility] 12-13-2023 13:53-0500 Systolic blood pressure 120 mm[Hg] Kade Kathy DO Work Phone: [facility] 10-18-2023 08:42-0400 Body height 165.1 cm [facility] 10-18-2023 08:42-0400 Body mass index (BMI) [Ratio] 24.7 kg/m2 [facility] 10-18-2023 08:42-0400 Body weight 67.3 kg [facility] 10-18-2023 08:42-0400 Diastolic blood pressure 89 mm[Hg] [facility] 10-18-2023 08:42-0400 Heart rate 74 /min [facility] 10-18-2023 08:42-0400 Respiratory rate 12 /min [facility] 10-18-2023 08:42-0400 Systolic blood pressure 134 mm[Hg] [facility] 09-19-2023 08:58-0400 Body height 165.1 cm [facility] 09-19-2023 08:58-0400 Body mass index (BMI) [Ratio] 23.7 kg/m2 [facility] 09-19-2023 08:58-0400 Body weight 64.63 kg [facility] 09-19-2023 08:58-0400 Diastolic blood pressure 92 mm[Hg] [facility] 09-19-2023 08:58-0400 Heart rate 79 /min [facility] 09-19-2023 08:58-0400 Respiratory rate 12 /min [facility] 09-19-2023 08:58-0400 Systolic blood pressure 142 mm[Hg] [facility] 09-11-2023 09:40-0400 Body height 165.1 cm [facility] 09-11-2023 09:40-0400 Body mass index (BMI) [Ratio] 23.3 kg/m2 [facility] 09-11-2023 09:40-0400 Body temperature 99.4 [degF] [facility] 09-11-2023 09:40-0400 Body weight 63.5 kg [facility] 09-11-2023 09:40-0400 Heart rate 75 /min [facility] 09-11-2023 09:40-0400 Respiratory rate 18 /min [facility] 09-11-2023 09:40-0400 SaO2% (BldA) [Mass fraction] 99 % [facility] 09-06-2023 10:56-0400 Body height 165.1 cm [facility] 09-06-2023 10:56-0400 Body mass index (BMI) [Ratio] 23.3 kg/m2 [facility] 09-06-2023 10:56-0400 Body temperature 98.4 [degF] [facility] [facility]23 10:56-0400 Body weight 63.5 kg [facility] 09-06-2023 10:56-0400 Diastolic blood pressure 83 mm[Hg] [facility] 09-06-2023 10:56-0400 Heart rate 77 /min [facility] 09-06-2023 10:56-0400 Respiratory rate 18 /min [facility] 09-06-2023 10:56-0400 SaO2% (BldA) [Mass fraction] 98 % [facility] 09-06-2023 10:56-0400 Systolic blood pressure 132 mm[Hg] [facility] 01-16-2021 14:00-0500 Body height 165.1 cm Kitty Soniya Other [facility] 01-16-2021 14:00-0500 Body mass index (BMI) [Ratio] 20.8 kg/m2 Kitty Soniya Other [facility] 01-16-2021 14:00-0500 Body temperature 97.1 [degF] Kitty Soniya Other [facility] 01-16-2021 14:00-0500 Body weight 56.7 kg Kitty Soniya Other [facility] Other 01-16-2021 14:00-0500 Respiratory rate 18 /min Kitty Soniya Other [facility] 01-16-2021 14:00-0500 SaO2% (BldA) [Mass fraction] 99 % Kitty Soniya Other [facility] Other Encounters Encounter Date Encounter Type Care Provider Facility Start: 02-27-2024 End: 02-27-2024 Bamboo flowsheet Kade Kathy DO Work Phone: [facility] Start: 02-27-2024 End: 02-27-2024 Bamboo flowsheet Kade Kathy DO Work Phone: [facility] Start: 02-15-2024 End: 01-09-2025 Patient encounter procedure Kade Kathy DO Work Phone: [facility] Comment on above: Menorrhagia with reg ular cycle Start: 02-15-2024 End: 02-15-2024 [facility] Start: 02-15-2024 End: 02-15-2024 Departed Referred Kade Kathy DO Work Phone: [facility] Start: 12-13-2023 End: 12-13-2023 Bamboo flowsheet Kade Kathy DO Work Phone: [facility] Start: 12-13-2023 End: 12-13-2023 Bamboo flowsheet Kade Kathy DO Work Phone: [facility] Start: 12-13-2023 End: 12-13-2023 Office outpatient visit 15 minutes Kade Kathy DO Work Phone: [facility] Comment on above: Irregular menstrual bleeding Start: 10-18-2023 End: 10-18-2023 ambulatory [facility] [place] Work Phone: Start: 10-18-2023 End: 10-18-2023 Encounter for general adult medical examination without abnormal findings [facility] Start: 10-18-2023 End: 10-18-2023 Patient encounter procedure [facility] Work Phone: Start: 10-15-2023 Patient encounter status [facility] Start: 09-19-2023 End: 09-19-2023 ambulatory [facility] Work Phone: Start: 09-19-2023 End: 09-19-2023 Patient encounter procedure [facility] Work Phone: Start: 09-11-2023 End: 09-11-2023 ambulatory [facility] Work Phone: Start: 09-11-2023 End: 09-11-2023 Patient encounter procedure [facility] [place] Work Phone: Start: 09-06-2023 End: 09-06-2023 ambulatory [facility] Work Phone: Start: 09-06-2023 End: 09-06-2023 Patient encounter procedure [facility] [place] Work Phone: Start: 01-16-2021 (URG) Urgent Care Visit Kitty izquierdo [facility] [place] Start: 01-16-2021 End: 01-16-2021 ambulatory Kitty Byrnes Other Located Within [facility] Other Start: 06-14-2017 End: 06-14-2017 Ambulatory JUANITA Tatum DIAZ Facility: Procedures Date Procedure Procedure Detail Performing Clinician Start: 02-15-2024 ENDOMETRIAL BIOPSY Core y Kathy DO Work Phone: Start: 02-15-2024 Urine test visual color cmprsn meths Kade Kathy DO Work Phone: Plan of Treatment Date Care Activity Detail Author Start: 02-27-2024 End: 02-27-2024 Patient encounter procedure [facility] Comment on above: Arrived Start: 02-21-2024 End: 02-21-2024 Professional / ancillary services management 02/21/2024 11:00 AM EST Ancillary Procedure [facility] [address] [place] [address] [facility] Start: 02-15-2024 End: 02-14-2025 US Pelvis US Pelvis w/ TV Imaging Routine Menorrhagia with regular cycle Expected: 02/15/2024, Expires: 02/14/2025 [facility] Work Phone: Comment on above: Expected: 02/15/2024 , Expires: 02/14/2025 Start: 01-17-2024 End: 01-17-2024 Patient encounter procedure 01/17/2024 2:40 PM EST Consult [facility] [address] [place] [address] Kade Chavez, DO [address] [place] [address] [facility] Start: 01-08-2024 End: 01-08-2024 Patient encounter procedure 01/08/2024 1:30 PM EST Procedure Visit [facility] [address] [address] Kade Chavez, DO [address] [place] [address] [facility] Start: 12-13-2023 End: 12-12-2024 US for US PELVIS-TRANSVAG IF INDICATED Imaging Routine Irregular menstrual bleeding Expected: 12/13/2023 (Approximate), Expires: 12/12/2024 [facility] Work Phone: Comment on above: Expected: 12/13/2023 (Approximate), Expires: 12/12/2024 Comprehensive metabo lic 2000 panel - Serum or Plasma [facility] MG Breast - bilatera l Screening [facility] Payers Date Payer Category Payer Self-pay 2021 [facility] BCBS [id number] 1961 Unknown [id number] Unknown [employer]/BS [id number] Unknown [id number] Social History Date Type Detail Facility Sex Assigned At [facility] Other Start: 09-06-2023 End: 09-06-2023 Tobacco smoking status NHIS Never smoked tobacco (finding) [facility] Start: 1980 Sex Assigned At Female F [facility] Tobacco smoking status [facility] Tobacco smoking consumption unknown [facility] Start: 12-13-2023 Gender identity Identifies as female gender (finding) [facility] Start: 02-17-2024 Sex Female (finding) [facility] History of Present illness Narrative 02-15-2024 Alejandra [...] nursing note reviewed. Exam conducted with a interactive designer present. Vitals: Estimated body mass index is [...] EST Note Date & Type Note Facility 11-06-2024 History of Presen t illness Narrative Reason [...] nursing note reviewed. Exam conducted with a interactive designer present. Vitals: Estimated body mass index is [...] Patient care instructions given in writting by [facility] Care At Home document. [facility] Other Evaluation note Note Date & Type Note Facility Evaluation note No assessment information availa ble [facility] Work Phone: Evaluation note Note Date & Type Note Facility Evaluation note Diagnosis Onset Date Insect bites acute Insect bites acute [facility] Work Phone: Evaluation note Note Date & Type Note Facility Evaluation note Diagnosis Onset Date Insect bites acute Insect bites acute Staph infection acute Bug bite with infection none active [facility] Work Phone: Evaluation note Note Date & Type Note Facility Evaluation note Diagnosis Onset Date Staph infection acute Bug bite with infection none active Folliculitis acute Screening for colon cancer a cute Screening mammogram for breast cancer acute Wellness examination acute [facility] Work Phone: Evaluation note Note Date [...] Narrative - Reported Type Medical History vertigo [facility] Other Summary Purpose Family History No Family History Records FoundNo Family History Records Found Advance Directives Advance [...] content) DATE CREATED AUTHOR 07/26/2017 [facility] DATE CREATED AUTHOR AUTHOR'S ORGANIZ ATION 02/21/2024 [facility] REASON FOR VISIT (unrecogniz ed section and content) Reason Comments Menstrual Problem Reason Comments Menorrhagia Care Teams (unrecognized sec tion and content) Team Status: Active Member Role Status Dates Davina Razo APRN DIE CASTER-C Primary Care Provider Active Team Status: Inactive Member Role Status Dates Davina Razo APRN DIE CASTER-C Primary Care Provider Active Start: September 06, 2023 End: September 06, 2023 Lisa Guardado APRN Attending Provider Active S tart: September 06, 2023 End: September 06, 2023 Team Status: Inactive Member Role Status Dates Davina Razo APRN DIE CASTER-C Primary Care Provider Active Start: September 11, 2023 End: September 11, 2023 Lisa Guardado APRN Attending Provider Active S tart: September 11, 2023 End: September 11, 2023 Team Status: Inactive Member Role Status Dates Davina Razo APRN DIE CASTER-C Primary Care Provider Active Start: September 06, 2023 End: September 06, 2023 Lisa DIAS APRN Attending Provider Active Start: September 06, 2023 End: September 06, 2023 Team Status: Inactive Member Role Status Dates Davina Razo APRN DIE CASTER-C Primary Care Provider Active Start: September 11, 2023 End: September 11, 2023 Lisa DIAS APRN Attending Provider Active Start: September 11, 2023 End: September 11, 2023 Team Status: Inactive Member Role Status Dates Davina Razo APRN DIE CASTER-C Primary Care Provider Active Start: September 19, 2023 End: September 19, 2023 Ra Potter DO Attending Provider Active Sta rt: September 19, 2023 End: September 19, 2023 Team Status: Inactive Member Role Status Dates Davina Razo APRN DIE CASTER-C Primary Care Provider Active Start: October 072023 End: October 18, 2023 Ra Potter DO Attending Provider Active Sta rt: October 18, 2023 End: October 18, 2023 Novelty Dipper Relationship Specialty Start Date End Date Ra Potter MD [address] [place] [id number] PCP - General Internal Medicine 12/13/23 Novelty Dipper Relationship Specialty Start Date End Date Ra Potter MD [address] [place] [id number] PCP - General Internal Medicine 12/13/23 Novelty Dipper Relationship Specialty Start Date End Date Ra Potter MD [address] [place] [phone] PCP - General Internal Medicine 12/13/23 Team Status: Inactive Member Role Status Dates Kade Chavez DO Attending Provider Active Start : February 15, 2024 End: February 15, 2024 Novelty Dipper Relationship Specialty Start Date End Date Ra Potter MD [address] [place] [id number] PCP - General Internal Medicine 12/13/23 Goals (unrecognized section and content) Goals may [...] BE BASED ON THE PRIMARY CLINICAL RECORDS. [employer] provides no warranty or guarantee of the accuracy or completeness of information in this document.
[2024-03-01 12:08] LABS: Age Gdln ACOG Testing Note (.); HPV Aptima Negative (Negative); IGP, Aptima HPV, rfx 16/18,45 Note (.)
== END 2024-02-27 08:54 | disposition home or self-care (01) ==
LOC: LAB 08:53
PROVIDERS: PCP Internal Medicine; Visit Provider Obstetrics & Gynecology
DX: Z01.419 Encounter for gynecological examination (general) (routine) without abnormal findings (principal)
CPT/HCPCS: 87624; 88175

== ENCOUNTER 2024-03-06 09:56 | Outpatient (OUT) | payer BC, SELFPAY ==
--- NOTE | 2024-03-06 10:02 | ECG_ITS ---
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
--- OUTSIDE RECORDS SUMMARY | 2024-03-06 10:18 | XMS_ITS | CCD ---
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 Name Role Phone JUANITA DIAZ Unavailable Unavailable [...] Problem Classification Problem Date Documented Date Episodic/Chronic Abdominal pain (1 source) Pain in female pelvis; Translations: [Pelvic and perineal pain] 02-27-2024 Episodic Bacterial infection; unspecified site (5 sources) Staphylococcal [...] arthropods, initial encounter] 09-06-2023 Episodic Menstrual disorders (13 sources) Menorrhagia; Translations: [Excessive and frequent menstruation with regular cycle] Onset: 02-15-2024 09-06-2023 Chronic Other female genital disorders (1 source) Abnormal uterine bleeding; Translations: [Abnormal uterine and vaginal bleeding, unspecified] 02-27-2024 Chronic Other screening for suspected conditions (not mental disorders or infectious disease) (7 sources) Patient encounter status; Translations: [Encounter for [...] Test Name Value Interpretation Reference Range Facility IGP,APTIMA HPV,AGE GDLNon AGE GDLN ACOG TESTING Note . [facility] Comment on above: TESTS RESULT FLAG UN ITS REF RANGE LAB Clinician Provided Cytology Information Source.............Cervix;Endocervix No. of containers..01 ThinPrep Vial Age Algo ACOG Greer... 30-65 01 FLAG LEGEND: L-Low Normal,H-High Normal,LL-Alert Low,HH-Alert High <-Panic Low,>-Panic High,A-Abnormal,AA-Critical Abnormal Performed at: 01 =G [facility] [address] Felipa White MD, HPV APTIMA Negative Negative [facility] Comment on above: This nucleic acid am plification test detects fourteen high- risk HPV types (16,18,31,33,35,39,45,51,52,56,58,59,66,68) without differentiation. Performed at: =G - [facility] [id number] Primer Powder Blender Wet: Felipa White MD, Phone: [phone] Performed at: - [facility] [id number] Primer Powder Blender Wet: Felipa White MD, Phone: [phone] IGP, APTIMA HPV, RFX 16/18,45 Note . [facility] Comment on above: TESTS RESULT FLAG U NITS REF RANGE LAB DIAGNOSIS: 02 NEGATIVE FOR INTRAEPITHELIAL LESION OR MALIGNANCY. Specimen adequacy: 02 Satisfactory for evaluation. Endocervical and/or squamous metaplastic cells (endocervical component) are present. Performed by: Norma Paredes, Fire Alarm Inspector (ASCP) . 02 Note: Note 02 The Pap smear is a screening test designed to aid in the detection of premalignant and malignant conditions of the uterine cervix. It is not a diagnostic procedure and should not be used as the sole means of detecting cervical cancer. Both false-positive and false-negative reports do occur. Test Methodology: Note 02 This liquid based ThinPrep(R) pap test was screened with the use of an image guided system. HPV Genotype Reflex Note 02 Criteria not met, HPV Genotype not performed. FLAG LEGEND: L-Low Normal,H-High Normal,LL-Alert Low,HH-Alert High <-Panic Low,>-Panic High,A-Abnormal,AA-Critical Abnormal Performed at: 02 [facility] [address] [place] [address] Felipa White MD, BRUSH-SPATULA CERVIX ENDOCERVIX [facility] Endometrial biopsyon 025 Alejandra Oconnor LPN 02/15/2024 10:30 AM Endometrial biopsy Date/Time: 02/15/2024 [...] collected: specimen collected and sent to pathology [facility] HCG ( test) Ql (U)o n 02-15-2024 Interpretation and review of laboratory results Normal [facility] re Preg Test, Ur Negative Negative [facility] [place] 02-15-2024 L - -------- Specimen: [id number] Received: 02/16/24 Status: NGHIA Aden Num: [id number] Spec Type: Surgical Subm Dr: Kade Chavez Tissues: A Endometrium - Biopsy (EMBX) Procedures: HE/2, Gross/Micro L4 -------- Age/ Patient Sex Location Account Attending Physician -------- Debbie Rosario 44/F LABELL [id number] Kade Chavez -------- SPEC NUM: [id number] RECD: 02/16/24 STATUS: NGHIA ADEN NUM: [id number] RIO: 02/15/24- DR: Kade Chavez ENTERED: 02/16/[address] [facility] [address]: Eli,Lab SPEC TYPE: Surgical DEPT: GIGI DOBBINS ENTERED BY: [id number] RECV BY: [id number] ORDERED: HE/2, Gross/Micro L4 ORDERED: HE/2, Gross/Micro [...] submitted in a single cassette. (1, corrina, [id number]) JG Microscopic Description Microscopic examinations are performed supporting the above interpretation -------- Specimen: [id number] Received: 02/16/24 Status: NGHIA Keiko Num: [id number] Spec Type: Surgical Subm Dr: Kaed Chavez Tissues: A Endometrium - Biopsy (EMBX) Procedures: /2, Gross/Micro L4 -------- Patient: Debbie Rosario [id number] (Continued) -------- Specimen: [id number] Received: 02/16/24 (Continued) Signed (signature on file) Leigh Taylor MD 02/19/24 1608 -------- Specimen: [id number] Received: 02/16/24 Status: NGHIA Aden Num: [id number] Spec Type: Surgical Subm Dr: Kade Chavez Tissues: A Endometrium - Biopsy (EMBX) Procedures: HE/Jose Manuel, Bharat/Tate L4 -------- Patient: Debbie Rosario [id number] (Continued) -------- Specimen: [id number] Received: 02/16/24 (Continued) CPT Codes 65961 -------- -------- Specimen: [id number] Received: 02/16/24 Status: NGHIA Aden Num: [id number] Spec Type: Surgical Subm Dr: Kade Chavez Tissues: A Endometrium - Biopsy (EMBX) Procedures: HE/2, Gross/Micro L4 -------- Patient: Debbie Rosario [id number] (Continued) -------- Signed (signature on file) Leigh Taylor MD 02/19/24 1608 Normal The [facility] Embue Testingon 2020 Result Negative [facility] Other CARDIAC KARLI ADMITon 018 CKMB 0.30 ng/mL Normal <=2.37 [facility] Comment on above: Performed By: #### B TYSON CMADM ####[facility] Wsazscfyff6714 [address] [place] Creatine kinase (CK) 84 U/L Normal 30-135 [facility] Comment on above: Performed By: #### B TYSON CMADM ####[facility] Ybnfabngvm3734 [address] [place] INR Coag RelTime (Bld) SEE BELOW Normal The [facility] Comment on above: Result Comment: <0.0 34 ng/ml NEGATIVE 0.034-0.119 INDETERMINATE 0.120 AMI CUT OFF Performed By: #### B TYSON CMAJESSIE ####[facility] Pceaepvxjp3546 [address] [place] SURINDER 43.1 ng/mL Normal <=61.5 [facility] Comment on above: Performed By: #### JIM Kong MP ####[facility] Dmurojdrlv1658 [address] [place] TROP <0.012 Normal <=0.034 [facility] Comment on above: Performed By: #### JIM Kong MP ####[facility] [address] [place] [address] [place] CBC W MANUAL DIFFon 06-15-19 18 BAND # 0.2 103/ul Normal 0.0-0.3 The [facility] Comment on above: Performed By: #### Velma MEDRANO ####[facility] [address] [place] [address] [place] BAND % 3 % Normal 0-5 [facility] Comment on above: Performed By: #### Velma MEDRANO ####[facility] Fr[address]ngkey[address] [place] [address] [place] BASOM % 0.0 % Critically low 0.2-2.0 [facility] Comment on above: Performed By: #### Velma MEDRANO ####[facility] [address] [place] [address] [place] Basophils Auto #/vol (Bld) 0.00 103/ul Normal 0.00-0.10 The [facility] Comment on above: Performed By: #### Velma MEDRANO ####[facility] [address] [place] [address] [place] BLAST # Normal The [facility] Comment on above: Performed By: #### Velma MEDRANO ####[facility] [address] [place] [address] [place] BLAST % Normal The [facility] Comment on above: Performed By: #### Velma MEDRANO ####[facility] [address] [place] [address] [place] Eosinophils 0.00 103/ul Normal 0.00-0.70 [facility] Comment on above: Performed By: #### Velma MEDRANO ####[facility] [address]ej[address] [place] [id number] Eosinophils/100 leukocytes 0.0 % Critically low 0.9-7.0 [facility] Comment on above: Performed By: #### C MITCHELL ####[facility] Fvarwxaloi9852 [place] [id number] [place] Erythrocyte distribution width Auto Ratio (RBC) 12.8 % Normal 11.0-15.0 The [facility] Comment on above: Performed By: #### C MITCHELL ####[facility] Gdnruaqpgd3332 [place] [id number] Erythrocytes (RBC) 4.68 106/ul Normal 4.20-5.40 [facility] Comment on above: Performed By: #### C MITCHELL ####[facility] Q[address]ecj[address] [place], [place] [address]Gerken [place] Erythrocytes (RBC) Normal [facility] Comment on above: Performed By: #### C MITCHELL ####[facility] Sgrrncvalc[address] [place], [place] [address]ken [place] Hematocrit (HCT) 43.0 % Normal 36.0-48.0 [facility] Comment on above: Performed By: #### C MITCHELL ####[facility] V[address]br[address]haeo[address] [place], [place] [address]ken [place] Hemoglobin mass conc (Bld) 14.8 g/dL Normal 12.0-16.0 [facility] Comment on above: Performed By: #### C MITCHELL ####[facility] Mkcoldsppz3127 [place] [id number] [place] Lymphocytes 0.66 103/ul Critically low 1.20-3.80 The [facility] Comment on above: Performed By: #### C MITCHELL ####[facility] Ucnydexuxs[address] [place], [place] [address]ken [place] Lymphocytes Normal The [facility] Comment on above: Performed By: #### C MITCHELL ####[facility] Bxvdosstln[address] [place], [place] [address]ken [place] Lymphocytes/100 leukocytes 10.0 % Critically low 20.5-60.0 [facility] Comment on above: Performed By: #### Velma MEDRANO ####[facility] Tmetjszzsv2727 [place] [address]ken [place] Lymphocytes/100 leukocytes Normal The [facility] Comment on above: Performed By: #### Velma MEDRANO ####[facility] Nrisjmwkad9572 [place] [id number] MCH 31.6 pg Normal 26.7-34.0 The [facility] Comment on above: Performed By: #### Velma MEDRANO ####[facility] Lvydbqtaxv5340 [place] [address] MCHC mass conc (RBC) 34.4 g/dL Normal 29.9-35.2 The [facility] Comment on above: Performed By: #### Velma MEDRANO ####[facility] Dvkuxvkpyo[address] [place], [place] [address] [place] MCV 91.9 fL Normal 81.0-99.0 The [facility] Comment on above: Performed By: #### Velma MEDRANO ####[facility] [address] [place] [address] [place] METAMYELOCYTE # Normal The [facility] Comment on above: Performed By: #### Velma MEDRANO ####[facility] [address]jhxvcf[address] [place], [place] [address] [place] METAMYELOCYTE % Normal The [facility] Comment on above: Performed By: #### Velma MEDRANO ####[facility] [address] [place], [place] [address]ken [place] MONOM# 0.40 103/ul Normal 0.30-0.80 The [facility] Comment on above: Performed By: #### Velma MEDRANO ####[facility] [address]dzxlwvopq[address] [place], [place] [address] [place] MONOM% 6.0 % Normal 1.7-12.0 The [facility] Comment on above: Performed By: #### Velma MEDRANO ####[facility] [address]quirjv[address] [place], [place] [address] [place] MYELOCYTE # Normal The [facility] Comment on above: Performed By: #### Velma MEDRANO ####[facility] Ktlhyxoqao5[address] [place], [place] [address]Wekzxt [place] MYELOCYTE % Normal The [facility] Comment on above: Performed By: #### Velma MEDRANO ####[facility] Uwprxiwnan3772 [place], [place] [address]Nqxxhi Karen Platelet mean volume (PMV) 11.3 fL Normal 9.5-13.5 The [facility] Comment on above: Performed By: #### Velma MEDRANO ####[facility] Kkqovebgmz6991 [place], [place] [address]Tmtlls Jane Platelets 137 103/ul Critically low 150-450 [facility] Comment on above: Performed By: #### Velma MEDRANO ####[facility] [address]ri[address] [place] [address]Uziazf [place] SEG # 5.35 103/ul Normal 1.40-6.50 The [facility] Comment on above: Performed By: #### Velma MEDRANO ####[facility] Xirpjxvigm9046 [place] [address] Segmented Neutrophils/100 leukocytes 81.0 % Critically high 43.0-75.0 [facility] Comment on above: Performed By: #### Velma MEDRANO ####[facility] Mkackbgrem4874 [place], [place] [address]Xkvlfu [place] WBC (Leukocytes) 6.6 103/ul Normal 4.0-11.0 The [facility] Comment on above: Performed By: #### Velma MEDRANO ####[facility] Jyglkzgoqw1452 [place], [place] [address]Csknse [place] WBC (Leukocytes) Normal 4.0-11.0 The [facility] Comment on above: Performed By: #### Velma MEDRANO ####[facility] Ttukvamhmf2369 [place], [place] [address]Uoxvus Jane ER URINE PROFILEon 8 Bilirubin (total) Negative Normal NEGATIVE The [facility] Comment on above: Performed By: #### MIRTA JAVED ####[facility] Mqgbpdzcul8929 [address] [place] BLOOD TRACE-INTACT Normal NEGATIVE [facility] Comment on above: Performed By: #### MIRTA JAVED ####[facility] Bnptcqhfzb6281 [address] [place] ERUAHD A micrscopic examination will be performed if indicated. Normal The [facility] Comment on above: Performed By: #### MIRTA JAVED ####[facility] Btztjfoajj5995 [address] [place] Glucose mass conc Negative Normal NEGATIVE [facility] Comment on above: Performed By: #### MIRTA JAVED ####[facility] [address] [place] [address] [place] pH of blood 6.0 [pH] Normal 5-9 [facility] Comment on above: Performed By: #### MIRTA JAVED ####[facility] [address]hsfe[address] [place] [address] [place] Protein Negative Normal [facility] Comment on above: Performed By: #### MIRTA JAVED ####[facility] I[address]izz[address] [place] [address] [place] SPEC GRAVITY 1.025 Normal 1.005-<=1.025 [facility] Comment on above: Performed By: #### MIRTA JAVED ####[facility] [address]tjo[address] [place] [address] [place] UR MICRO IND INDICATED Normal The [facility] Comment on above: Performed By: #### MIRTA JAVED ####[facility] Juukzfqtxh9726 [address] [place] Urine, clarity CLEAR Normal The [facility] Comment on above: Performed By: #### MIRTA JAVED ####[facility] Otzqmodgxw5568 [address] [place] Urine, color YELLOW Normal YELLOW The [facility] Comment on above: Performed By: #### MIRTA JAVED ####[facility] Iaurawbiul0363 [place], [place] [address]Jiszsq [place] Urine, ketones presence Negative Normal NEGATIVE The [facility] Comment on above: Performed By: #### MIRAT JAVED ####[facility] Lzlkgigpyl1048 [place], [place] [address]Thcoks [place] Urine, nitrite presence Negative Normal NEGATIVE The [facility] Comment on above: Performed By: #### MIRTA JAVED ####[facility] Gnqbhqixyo9334 [place], [place] [address]Zjllpz [place] Urine, urobilinogen 0.2 {Stephanie'U}/dL Normal The [facility] Comment on above: Performed By: #### MIRTA JAVED ####[facility] Fruxtebaqq0192 [place] [address] WBC (Leukocytes) Negative Normal NEGATIVE The [facility] Comment on above: Performed By: #### MIRAT JAVED ####[facility] Qmwkvgvcvt8524 [place] [address] PREG HCG QUALon 06-14-2017 , QUAL Negative Normal NEGATIVE The [facility] Comment on above: Performed By: #### P REG ####[facility] [address] [place] [address] [place] PROF CHEM 8 (BAS METB)on Anion gap 12.5 mmol/L Normal The [facility] Comment on above: Performed By: #### B JIM MEHTA ####[facility] Xkdxhggdjr0604 [place] [address] BUN/Creatinine Ratio 16.1 mg/mg Normal The [facility] Comment on above: Performed By: #### B JIM MEHTA ####[facility] Rejddswgzq6828 [place] [address] Calcium 9.6 mg/dL Normal 8.4-10.2 The [facility] Comment on above: Performed By: #### B JIM MEHTA ####[facility] Afgjykebiy[address] [place] [address] Chloride 102 mmol/L Normal 98-107 [facility] Comment on above: Performed By: #### B TYSON, JIM ####[facility] Ugmtdaatfp3012 [place] [address] CO2 26.0 mmol/L Normal 22.0-30.0 [facility] Comment on above: Performed By: #### B TYSON, JIM ####[facility] Qymvpxpfrf9899 [place] [address] Creatinine 0.74 mg/dL Normal 0.52-1.04 [facility] Comment on above: Performed By: #### B TYSON, JIM ####[facility] Tlwnpreymv0213 [address] [place] eGFR (non-black) mL/min/{1.73_m2} Normal >=60 Th [facility] Comment on above: Performed By: #### Luann MEHTA, JIM ####[facility] Xwjufotrza74[address] [place] [address] Glucose mass conc 94 mg/dL Normal 74-106 [facility] Comment on above: Performed By: #### Luann MEHTA, JIM ####[facility] Dhpoisyukr3100 [address] [place] Potassium molar conc 4.2 mmol/L Normal 3.4-5.0 [facility] Comment on above: Performed By: #### Luann MEHTA, JIM ####[facility] Ulqypozerb7600 [address] [place] Sodium 137 mmol/L Normal 137-145 The [facility] Comment on above: Performed By: #### Luann MEHTA, LEILADM ####[facility] Bvxnexafpz4260 [place] [address] Urea nitrogen 12.0 mg/dL Normal 7.0-17.0 [facility] Comment on above: Performed By: #### JIM Kong MP ####[facility] Ykwzdcyeup7560 [place] [address] URINE MICROSCOPIC ONLYon CAST NONE SEEN Normal NONE SEEN The [facility] Comment on above: Performed By: #### Tatum MORALES UMJOSÉRO ####[facility] Ljhdxfgwap9208 [place], [place] [address]Oroiso [place] CULTURE NOT INDICATED Normal The [facility] Comment on above: Performed By: #### Tatum MORALES UMJOSÉRO ####[facility] Ctlkmqfvjv1382 [place], [place] [address]Xbgmwx [place] Erythrocytes (RBC) 2-5 Normal 0-2 The [facility] Comment on above: Performed By: #### PATRICIO JAVEDRO ####[facility] Eujippfpyw7908 [place], [place] [address]Syxryv Jane MUCOUS MODERATE Normal NONE SEEN [facility] Comment on above: Performed By: #### PATRICIO JAVEDRO ####[facility] Dlzymntdjy9496 [place], [place] [address]Kzlxzs [place] Urine, bacteria in sediment NONE SEEN Normal NONE SEEN [facility] Comment on above: Performed By: #### PATRICIO JAVEDRO ####[facility] Rlptqgfdpg0079 [place], [place] [address]Teubxd [place] Urine, crystals in sediment NONE SEEN Normal NONE SEEN [facility] Comment on above: Performed By: #### PATRICIO JAVEDRO ####[facility] Krxgzhuqyj7105 [place], [place] [address]Fxctcv [place] Urine, epithelial cells in sediment FEW Normal The [facility] Comment on above: Performed By: #### PATRICIO JAVEDRO ####[facility] Zhmcwzgfnc4436 [place] [address] WBC (Leukocytes) NONE SEEN Normal NONE SEEN The [facility] Comment on above: Performed By: #### PATRICIO JAVEDRO ####[facility] Ryiggfwxhj4449 [place], [place] [address]Bmsnpe [place] Vital Signs Date Time Vital Sign Value Performing Clinician Facility 02-27-2024 10:48-0500 Body mass index (BMI) [Ratio] 24.3 kg/m2 Kade Chavez DO Work Phone: [facility] 02-27-2024 10:48-0500 Body weight 66.22 kg Kade Kathy DO Work Phone: [facility] 02-27-2024 10:48-0500 Diastolic blood pressure 70 mm[Hg] Kade Kathy DO Work Phone: [facility] 02-27-2024 10:48-0500 Systolic blood pressure 110 mm[Hg] Kade Kathy DO Work Phone: [facility] 02-15-2024 09:44-0500 Body mass index (BMI) [Ratio] 25.13 kg/m2 Kade Kathy DO Work Phone: [facility] 02-15-2024 09:44-0500 Body weight 68.49 kg Kaed Kathy DO Work Phone: [facility] 02-15-2024 09:44-0500 Diastolic blood pressure 70 mm[Hg] Kade Kathy DO Work Phone: [facility] 02-15-2024 09:44-0500 Systolic blood pressure 118 mm[Hg] Kade Kathy DO Work Phone: [facility] 12-13-2023 13:53-0500 Body height 165.1 cm Kade Kathy DO Work Phone: [facility] 12-13-2023 13:53-0500 Body mass index (BMI) [Ratio] 24.1 kg/m2 Kade Kathy DO Work Phone: [facility] 12-13-2023 13:53-0500 Body weight 65.68 kg Kade Kathy DO Work Phone: [facility] 12-13-2023 13:53-0500 Diastolic blood pressure 70 mm[Hg] Kade Kathy DO Work Phone: [facility] 12-13-2023 13:53-0500 Systolic blood pressure 120 mm[Hg] Kade Kathy DO Work Phone: [facility] 10-18-2023 08:42-0400 Body height 165.1 cm [facility] 10-18-2023 08:42-0400 Body mass index (BMI) [Ratio] 24.7 kg/m2 [facility] [place] [facility] 10-18-2023 08:42-0400 Body weight 67.3 kg [facility] 10-18-2023 08:42-0400 Diastolic blood pressure 89 mm[Hg] [facility] [place] [facility] 10-18-2023 08:42-0400 Heart rate 74 /min [facility] 10-18-2023 08:42-0400 Respiratory rate 12 /min [facility] 10-18-2023 08:42-0400 Systolic blood pressure 134 mm[Hg] [facility] [place] [facility] 09-19-2023 08:58-0400 Body height 165.1 cm [facility] 09-19-2023 08:58-0400 Body mass index (BMI) [Ratio] 23.7 kg/m2 [facility] 09-19-2023 08:58-0400 Body weight 64.63 kg [facility] 09-19-2023 08:58-0400 Diastolic blood pressure 92 mm[Hg] [facility] 09-19-2023 08:58-0400 Heart rate 79 /min [facility] 09-19-2023 08:58-0400 Respiratory rate 12 /min [facility] 09-19-2023 08:58-0400 Systolic blood pressure 142 mm[Hg] [facility] 09-11-2023 09:40-0400 Body height 165.1 cm [facility] 09-11-2023 09:40-0400 Body mass index (BMI) [Ratio] 23.3 kg/m2 [facility] 09-11-2023 09:40-0400 Body temperature 99.4 [degF] [facility] 09-11-2023 09:40-0400 Body weight 63.5 kg [facility] 09-11-2023 09:40-0400 Heart rate 75 /min [facility] 09-11-2023 09:40-0400 Respiratory rate 18 /min [facility] 09-11-2023 09:40-0400 SaO2% (BldA) [Mass fraction] 99 % [facility] 09-06-2023 10:56-0400 Body height 165.1 cm [facility] 09-06-2023 10:56-0400 Body mass index (BMI) [Ratio] 23.3 kg/m2 [facility] 09-06-2023 10:56-0400 Body temperature 98.4 [degF] [facility] 09-06-2023 10:56-0400 Body weight 63.5 kg [facility] 09-06-2023 10:56-0400 Diastolic blood pressure 83 mm[Hg] [facility] 09-06-2023 10:56-0400 Heart rate 77 /min [facility] 09-06-2023 10:56-0400 Respiratory rate 18 /min [facility] 09-06-2023 10:56-0400 SaO2% (BldA) [Mass fraction] 98 % [facility] 09-06-2023 10:56-0400 Systolic blood pressure 132 mm[Hg] [facility] 01-16-2021 14:00-0500 Body height 165.1 cm Kitty Soniya Other [facility] Other 01-16-2021 14:00-0500 Body mass index (BMI) [Ratio] 20.8 kg/m2 Kitty Soniya Other [facility] Other 01-16-2021 14:00-0500 Body temperature 97.1 [degF] Kitty Geemond Other [facility] Other 01-16-2021 14:00-0500 Body weight 56.7 kg Kitty Soniya Other [facility] Other 01-16-2021 14:00-0500 Respiratory rate 18 /min Kitty Soniya Other [facility] Other 01-16-2021 14:00-0500 SaO2% (BldA) [Mass fraction] 99 % Kitty Byrnes Other [facility] Other Encounters Encounter Date Encounter Type Care Provider Facility Start: 02-27-2024 End: 02-27-2024 Bamboo flowsheet Kade Kathy DO Work Phone: [facility] Start: 02-27-2024 End: 03-01-2024 Bamboo flowsheet Kade Kathy DO Work Phone: [facility] Start: 02-27-2024 End: 03-01-2024 Clinisync Result Encounter Kade Kathy DO Work Phone: [facility] External Department Unsolicited Start: 02-27-2024 End: 02-27-2024 Patient encounter procedure Kade Kathy DO Work Phone: [facility] Start: 02-27-2024 End: 02-27-2024 Periodic preventive med est patient 40-64yrs Kade Kathy DO Work Phone: [facility] Comment on above: Well woman exam with routine gynecological exam; Breast cancer screening by mammogram; Pre-op examination; Menorrhagia with regular cycle; Abnormal uterine bleeding; Pelvic pain in female Start: 02-27-2024 End: 02-27-2024 Preprocedural examination done Kade Kathy DO Work Phone: [facility] Start: 02-15-2024 End: 02-15-2024 Patient encounter procedure Kade Kathy DO Work Phone: [facility] Comment on above: Menorrhagia with reg ular cycle Start: 02-15-2024 End: 02-15-2024 ambulatory Kade Kathy [facility] Work Phone: Start: 02-15-2024 End: 02-15-2024 Departed Referred Kade Kathy DO Work Phone: [facility] Start: 12-13-2023 End: 12-13-2023 Bamboo flowsheet [...] general adult medical examination without abnormal findings [facility] Start: 10-18-2023 End: 10-18-2023 Patient encounter procedure [facility] Work Phone: Start: 10-15-2023 Patient encounter status [facility] Start: 09-19-2023 End: 09-19-2023 ambulatory [facility] Work Phone: Start: 09-19-2023 End: 09-19-2023 Patient encounter procedure [facility] Work Phone: Start: 09-11-2023 End: 09-11-2023 ambulatory [facility] Work Phone: Start: 09-11-2023 End: 09-11-2023 Patient encounter procedure [facility] Work Phone: Start: 09-06-2023 End: 09-06-2023 ambulatory [facility] Work Phone: Start: 09-06-2023 End: 09-06-2023 Patient encounter procedure [facility] Work Phone: Start: 01-16-2021 (URG) Urgent Care Visit Kitty izquierdo [facility] Start: 01-16-2021 End: 01-16-2021 ambulatory Kitty Geemond Other [facility] Other Start: 06-14-2017 End: 06-14-2017 Ambulatory JUANITA DIAZ Facility: Procedures Date Procedure Procedure Detail Performing Clinician Start: 02-27-2024 IGP,APTIMA HPV,AGE GDLN Kade Kathy DO Work Phone: Start: 02-15-2024 ENDOMETRIAL BIOPSY Core y Kathy DO Work Phone: Start: 02-15-2024 Urine test visual color cmprsn meths Kade Kathy DO Work Phone: Plan of Treatment Date Care Activity Detail Author Start: 02-27-2024 End: 04-26-2025 MG Breast - bilateral Screening Bilateral screening mammogram Imaging Routine Breast cancer screening by mammogram Expected: 02/27/2024 (Approximate), Expires: 04/26/2025 [facility] Work Phone: Comment on above: Expected: 02/27/2024 (Approximate), Expires: 04/26/2025 Start: 02-27-2024 End: 02-27-2024 Patient encounter procedure [facility] Comment on above: Arrived Start: 02-21-2024 End: 02-21-2024 Professional / ancillary services management 02/21/2024 11:00 AM EST Ancillary Procedure [facility] [address] [place] [address] [facility] Start: 02-15-2024 End: 02-14-2025 US Pelvis US Pelvis w/ TV Imaging Routine Menorrhagia with regular cycle Expected: 02/15/2024, Expires: 02/14/2025 [facility] Work Phone: Comment on above: Expected: 02/15/2024 , Expires: 02/14/2025 Start: 01-17-2024 End: 01-17-2024 Patient encounter procedure 01/17/2024 2:40 PM EST Consult [facility] [address] [place] [id number] Kade Chavez, DO [address] [place], [place] [id number] [facility] Start: 01-08-2024 End: 01-08-2024 Patient encounter procedure 01/08/2024 1:30 PM EST Procedure Visit [facility] [address] [place] [id number] Kade Chavez, DO [address] [place], [place] [id number] [facility] Start: 12-13-2023 End: 12-12-2024 US for US PELVIS-TRANSVAG IF INDICATED Imaging Routine Irregular menstrual bleeding Expected: 12/13/2023 (Approximate), Expires: 12/12/2024 [facility] Work Phone: Comment on above: Expected: 12/13/2023 (Approximate), Expires: 12/12/2024 Comprehensive metabo lic 2000 panel - Serum or Plasma [facility] MG Breast - bilatera l Screening [facility] THIN PREP TIS PAP AN D HR HPV DNA THIN PREP TIS PAP AND HR HPV DNA Pathology and Cytology Routine Well woman exam with routine gynecological exam Ordered: 02/27/2024 [facility] Comment on above: Ordered: 02/27/2024 [facility] Payers Date Payer Category Payer Self-pay 2021 [facility] [id number] 1961 Unknown [id number] Unknown [employer]/BS [id number] Unknown [id number] Social History Date Type Detail Facility Sex Assigned At [facility] Other Start: 09-06-2023 End: 09-06-2023 Tobacco smoking status WAIS Never smoked tobacco (finding) [facility] Start: 1980 Sex Assigned At Female F [facility] Tobacco smoking status [facility] Tobacco smoking consumption unknown [facility] Start: 12-13-2023 Gender identity Identifies as female gender (finding) [facility] Start: 02-17-2024 Sex Female (finding) [facility] Clinical Notes 01-16-2021 to 02-27-2024 Katelynn Aquino - 02/27/2024 10:30 AM Zack Oconnor, [facility] - 02/15/2024 9:30 AM David Samson, [facility] - 12/13/2023 1:40 PM EST Note Date & Type Note Facility 02-27-2024 History of Presen t illness Narrative Reason for Appointment: Patient ID: Debbie Rosario is a 44 y.o. female who presents for Gynecologic Exam and Pre-op Visit Patient presents today for Pre Op/Annual appointment. Patient is scheduled to undergo Endometrial Ablation with Ramona on 03/15/[address] Chavez at [facility]. MEDICATIONS No current outpatient medications ALLERGIES No Known Allergies PROBLEMS Active Ambulatory Problems Diagnosis Date Noted Menorrhagia with regular cycle 02/15/2024 Resolved Ambulatory Problems Diagnosis Date Noted No Resolved Ambulatory Problems No Additional Past Medical History HISTORY PAST MEDICAL HISTORY SOCIAL HISTORY No past medical history on file. Social History Tobacco Use Smoking status: Not [...] Negative. Endocrine: Negative. Allergic/Immunologic: Negative. OBJECTIVE Objective: OBGyn Exam Vitals: Estimated body mass index is 25.13 kg/m as calculated from the following: Height as of 12/13/23: 5' 5 . Weight as of 02/15/24: 151 lb. BP: Patient's last menstrual period was 02/15/2024 (exact date). ASSESSMENT & PLAN ICD-10-CM 1. Well woman exam with routine gynecological exam Z01.419 THIN PREP TIS PAP AND HR HPV DNA 2. Breast cancer screening by mammogram Z12.31 Bilateral screening mammogram Bilateral screening mammogram 3. Pre-op examination Z01.818 4. Menorrhagia with regular cycle N92.0 5. Abnormal uterine bleeding N93.9 6. Pelvic pain in female R10.2 Annual Exam: Patient presents today for an annual exam. Patient states she is doing well and has no complaints. Pap was obtained without difficulty. Orders Placed This Encounter Procedures Bilateral screening mammogram Pre Op: Patient is doing well but has complaints of bleeding and pelvic pain. Patient has tried hormone therapy in the past but all attempts to subside patients issues have failed. I have discussed conservative management vs. surgical management with the patient in detail and patient desires surgical management at this time. Patient will undergo Endometrial Ablation with Ramona on 03/15/2024. Surgical consents were signed, mmc was reviewed, and patient is to proceed to [facility] OR. Follow Up: Patient is to follow up between 1-2 weeks post op to assess proper healing and recovery from procedure. Documented by Jane Samson LPN on behalf of: Kade Chavez DO documented in this encounter [facility] 02-15-2024 History of Presen t illness Narrative [...] nursing note reviewed. Exam conducted with a resource engineer present. Vitals: Estimated body mass index is [...] Kade Chavez DO documented in this encounter [facility] 12-13-2023 History of Presen t illness Narrative [...] nursing note reviewed. Exam conducted with a resource engineer present. Vitals: Estimated body mass index is [...] Kade Chavez DO documented in this encounter [facility] 01-16-2021 Evaluation note Encounter Date Diagnosis Assessment [...] Patient care instructions given in writting by [facility] document. [facility] Other Evaluation noteNo assessment information available [facility] Work Phone: Evaluation note* Diagnosis Onset Date Resolution Status Insect bites acute Insect bites acute [facility] Work Phone: Evaluation note* Diagnosis Onset Date Resolution Status Insect bites acute Insect bites acute Staph infection acute Bug bite with infection none active [facility] Work Phone: Evaluation note* Diagnosis Onset Date Resolution Status Staph infection acute Bug bite with infection none active Folliculitis acute Screening for colon cancer a cute Screening mammogram for breast cancer acute Wellness examination acute [facility] Work Phone: Evaluation note* Diagnosis Irregular menstrual bleeding Irregular menstrual cycle [facility] Diagnosis Menorrhagia with regular cycle [facility] Diagnosis Well woman exam with routine gynecological exam Routine gynecological examination Breast cancer screening by mammogram Pre-op examination Menorrhagia with regular cycle Abnormal uterine bleeding Unspecified disorder of menstruation and other abnormal bleeding from female genital tract Pelvic pain in female Unspecified symptom associated with female genital organs [facility] N[facility]ative - Reported* Type Description Date Medical History vertigo [facility] Other Summary Purpose Family History No Family [...] CREATED AUTHOR AUTHOR'S ORGANIZ ATION 02/21/2024 [facility] REASON FOR VISIT (unrecogniz ed section and content) Reason Comments Menstrual Problem Reason Comments Menorrhagia Reason Comments Gynecologic Exam Pre-op Visit Care Teams (unrecognized sec tion and content) Team Status: Active Member Role Status Dates Davina Razo APRN OUTPATIENT COORDINATOR-C Primary Care Provider Active Team Status: Inactive Member Role Status Dates Davina Razo APRN OUTPATIENT COORDINATOR-C Primary Care Provider Active Start: September 06, 2023 End: September 06, 2023 Lisa Guardado APRN Attending Provider Active S tart: September 06, 2023 End: September 06, 2023 Team Status: Inactive Member Role Status Dates Davina Razo APRN OUTPATIENT COORDINATOR-C Primary Care Provider Active Start: September 11, 2023 End: September 11, 2023 Lisa Guardado APRN Attending Provider Active S tart: September 11, 2023 End: September 11, 2023 Team Status: Inactive Member Role Status Hermes Razo APRN OUTPATIENT COORDINATOR-C Primary Care Provider Active Start: September 06, 2023 End: September 06, 2023 Lisa DIAS APRN Attending Provider Active Start: September 06, 2023 End: September 06, 2023 Team Status: Inactive Member Role Status Hermes Razo APRN OUTPATIENT COORDINATOR-C Primary Care Provider Active Start: September 11, 2023 End: September 11, 2023 Lisa DIAS APRN Attending Provider Active Start: September 11, 2023 End: September 11, 2023 Team Status: Inactive Member Role Status Hermes Razo APRN OUTPATIENT COORDINATOR-C Primary Care Provider Active Start: September 19, 2023 End: September 19, 2023 Ra Potter DO Attending Provider Active Sta rt: September 19, 2023 End: September 19, 2023 Team Status: Inactive Member Role Status Dates Davina Razo APRN OUTPATIENT COORDINATOR-C Primary Care Provider Active Start: October 072023 End: October 18, 2023 Ra Potter DO Attending Provider Active Sta rt: October 18, 2023 End: October 18, 2023 Excavator Operator Relationship Specialty Start Date End Date Ra Potter MD [address] [place] [facility] [place] [phone] PCP - General Internal Medicine 12/13/23 Excavator Operator Relationship Specialty Start Date End Date Ra Potter MD [address] [place] [facility] [place] [phone] PCP - General Internal Medicine 12/13/23 Excavator Operator Relationship Specialty Start Date End Date Ra Potter MD [address] [facility] [place] [phone] PCP - General Internal Medicine 12/13/23 Team Status: Inactive Member Role Status Dates Kade Chavez DO Attending Provider Active Start : February 15, 2024 End: February 15, 2024 Excavator Operator Relationship Specialty Start Date End Date Ra Potter MD [address] [place] [facility] [place] [id number] PCP - General Internal Medicine 12/13/23 Excavator Operator Relationship Specialty Start Date End Date Ra Potter MD [address] [place] [facility] [place] [address] PCP - General Internal Medicine 12/13/23 Goals [...] BE BASED ON THE PRIMARY CLINICAL RECORDS. [facility] path [facility]. provides no warranty or guarantee of the accuracy or completeness of information in this document.
--- NOTE | 2024-03-06 10:32 | PM.PRESUREVA ---
History of Present Illness History of Present Illness Chief complaint: abnormal uterine bleeding, pelvic pain Narrative: Patient presents for presurgical testing. The patient reports heavy painful periods. She denies dysuria, hematuria, abnormal vaginal discharge, constipation, diarrhea, nausea, vomiting, or any other complaints. Review of Systems ROS Narrative REVIEW OF SYSTEMS: Negative except as stated in HPI, ten or more systems reviewed. Constitutional: No fever, chills, weakness ENT: No sore throat or epistaxis Cardiovascular: No edema, chest pain, palpitations, or activity intolerance Respiratory: No shortness of breath, cough, or wheezing Musculoskeletal: No joint pain or swelling Genitourinary: No dysuria or hematuria Neurological: No numbness, tingling, weakness, or headache Psychiatric: No mood changes PFSH PFSH Medical History (Updated 03/06/24 @ 10:16 by Arcelia Reeder NP) Neck pain ?M54.2 - Cervicalgia (ICD-10) Migraine ?G43.909 - Migraine, unspecified, not intractable, without status migrainosus (ICD-10) Urinary tract infection ?N39.0 - Urinary tract infection, site not specified (ICD-10) Abnormal uterine bleeding ?N93.9 - Abnormal uterine and vaginal bleeding, unspecified (ICD-10) Pelvic pain ?R10.2 - Pelvic and perineal pain (ICD-10) Menorrhagia ?N92.0 - Excessive and frequent menstruation with regular cycle (ICD-10) Heartburn ?R12 - Heartburn (ICD-10) Family History (Updated 03/06/24 @ 10:16 by Arcelia Reeder NP) Other Family history of diabetes mellitus Social History (Updated 03/06/24 @ 10:12 by Arcelia Reeder NP) Within the past year, how often did you have a drink containing alcohol: 2-3 times a week Smoking status: Former smoker Non-prescribed substance use: denies use 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 Highest level of school completed/degree received: high school graduate Meds Home Medications and Allergies Home Medications ?Medication ?Instructions ?Recorded ?Confirmed ?Type loratadine 10 mg tablet (Claritin) 10 mg PO DAILY 03/06/24 03/06/24 History omeprazole 20 mg tablet,delayed 20 mg PO DAILY PRN heartburn 03/06/24 03/06/24 History release Allergies Allergy/AdvReac Type Severity Reaction Status Date / Time No Known Drug Allergies Allergy Verified 03/06/24 10:10 Exam Narrative Exam Narrative: Constitutional: Awake, alert, comfortable, well-appearing, nontoxic, interactive, vital signs as charted Head: Normocephalic, atraumatic Neck: Supple, normal appearance, normal range of motion, no meningeal signs, no lymphadenopathy Respiratory: No respiratory distress, breath sounds clear Cardiovascular: Regular rate and rhythm, strong and regular heart tones Abdomen: Nontender, normal bowel sounds, soft, no CVA tenderness Musculoskeletal: Normal gait, no swelling or edema Skin: No rashes or induration, no lesions, only visible skin inspected Neuro: No neurological deficits, normal sensation Psychiatric: Oriented ?3, normal affect Assessment and Plan Assessment and Plan (1) Menorrhagia: (2) Pelvic pain: (3) Abnormal uterine bleeding: Plan Endometrial ablation/Ramona scheduled with Dr. Chavez March 15, 2024.
== END 2024-03-06 09:57 | disposition home or self-care (01) ==
LOC: PST 09:56
PROVIDERS: PCP Internal Medicine; Visit Provider Obstetrics & Gynecology
DX: Z01.818 Encounter for other preprocedural examination (principal); Z01.810 Encounter for preprocedural cardiovascular examination; N92.0 Excessive and frequent menstruation with regular cycle; N93.9 Abnormal uterine and vaginal bleeding, unspecified; R10.2 Pelvic and perineal pain
CPT/HCPCS: 93005; G0463

== ENCOUNTER 2024-03-15 06:45 | Day surgery (SDC) | payer BC, SELFPAY ==
[2024-03-06 10:27] VITALS: BP 123/83; PULSE 82; TEMP 36.5; O2SAT 100; BMI 24.4
--- OUTSIDE RECORDS SUMMARY | 2024-03-15 06:47 | XMS_ITS | CCD ---
Author Organization [facility] Care Team Providers Care Varnish Maker Name Role Phone JUANITA DIAZ Unavailable Unavailable MAXWELL RAMIREZ Unavailable Unavailable MAXWELL RAMIREZ Unavailable Unavailable JAMES, MXAWELL Unavailable Unavailable Kitty Byrnes Unavailable Ra Potter MD Primary Care Provider Jethro Chavez DO Attending Provider Jethro Chavez Attending Unavailable Jethro Chavez Admitting Unavailable Medications Current Medications Medication [...] arthropods, initial encounter] 09-06-2023 Episodic Menstrual disorders (14 sources) Menorrhagia; Translations: [Excessive and frequent menstruation [...] Test Name Value Interpretation Reference Range Facility ECG 12-LEADon 03-07-2024 [place] [address] Electrocardiograph Report Signed Patient: DELVIS SALCEDO MR#: [id number] : 1980 Acct:[id number] Age/Sex: 44 / F ADM Date: 03/06/24 Loc: [facility] Attending Dr: Jethro Chavez D.O. Ordering Physician: Jethro Chavez D.O. Date of Service: 03/06/24 Procedure(s): ECG 12 lead Accession Number(s): [id number] cc: [facility] Test Date: 2024-03-06 Pat Name: DELVIS SALCEDO Department: Room: - Gender: Female [place] Guide: : 1980 Requested By: JETHRO CHAVEZ Order Number: [id number] Reading MD: RA POTTER Measurements Intervals [place] Rate: 67 P: 54 VT: 149 QRS: 19 QRSD: 81 T: 38 QT: 386 QTc: 410 Interpretive Statements SINUS RHYTHM Compared to ECG 06/14/2017 09:38:12 No significant changes Electronically Signed On 03-07-2024 6:56:18 EST by RA POTTER Dictated By: Ra Potter D.O. Signed By: 03/07/24 0656 DD/ 1026 TD/TT: Nc Manager: [facility] Radiology, Radiologist, MD - 03/07/2024 The [place] [id number] Electrocardiograph Report Signed Patient: DELVIS SALCEDO MR#: [id number] : 1980 Acct:[id number] Age/Sex: 44 / F ADM Date: 03/06/24 Loc: PST Attending Dr: Jethro Chavez D.O. Ordering Physician: Jethro Chavez D.O. Date of Service: 03/06/24 Procedure(s): ECG 12 lead Accession Number(s): [id number] cc: [facility] Test Date: 2024-03-06 Pat Name: DELVIS SALCEDO Department: Room: - Gender: Female [place] Guide: : 1980 Requested By: JETHRO CHAVEZ Order Number: [id number] Reading MD: RA POTTER Measurements Intervals [place] Rate: 67 P: 54 VT: 149 QRS: 19 QRSD: 81 T: 38 QT: 386 QTc: 410 Interpretive Statements SINUS RHYTHM Compared to ECG 06/14/2017 09:38:12 No significant changes Electronically Signed On 03-07-2024 6:56:18 EST by RA POTTER Dictated By: Ra Potter D.O. Signed By: 03/07/24 0656 DD/ 1026 TD/TT: Nc Manager: [facility] ECG 12-LEADOrdered By: Radio logist Radiology on 03-07-2024 [facility] [employer] Work Phone: ECG 12-LEADon 03-06-2024 Radiology Study observation (narrative) [facility] IGP,APTIMA HPV,AGE GDLNon AGE GDLN ACOG TESTING Note . [facility] Comment on above: TESTS RESULT FLAG UN ITS REF RANGE LAB Clinician Provided Cytology Information Source.............Cervix;Endocervix No. of containers..01 ThinPrep Vial Age Algo ACOG Greer... FLAG LEGEND: L-Low Normal,H-High Normal,LL-Alert Low,HH-Alert High <-Panic Low,>-Panic High,A-Abnormal,AA-Critical Abnormal Performed at: 01 =[address] [place] [address] Felipa White MD, HPV APTIMA Negative Negative [facility] Comment on above: This nucleic acid am plification test detects fourteen high- risk HPV types (16,18,31,33,35,39,45,51,52,56,58,59,66,68) without differentiation. Performed at: = - [address] [id number] Link Machine Operator: Felipa White MD, Phone: [phone] Performed at: [address] [id number] Link Machine Operator: Felipa White MD, Phone: [phone] IGP, APTIMA HPV, RFX 16/18,45 Note . [facility] Comment on above: TESTS RESULT FLAG UN ITS REF RANGE LAB DIAGNOSIS: 02 NEGATIVE FOR INTRAEPITHELIAL LESION OR MALIGNANCY. Specimen adequacy: 02 Satisfactory for evaluation. Endocervical and/or squamous metaplastic cells (endocervical component) are present. Performed by: Norma Paredes, Wax Engraver (ASCP) . 02 Note: Note 02 The [...] <-Panic Low,>-Panic High,A-Abnormal,AA-Critical Abnormal Performed at: [address] [address] Felipa White MD, BRUSH-SPATULA CERVIX ENDOCERVIX [facility] [employer] Endometrial biopsyon 025 Alejandra Oconnor LPN 02/15/2024 10:30 AM Endometrial biopsy Date/Time: 02/15/2024 10:17 AM Performed by: Jethro Chavez DO Authorized by: Jethro Chavez DO Consent: Consent obtained: written Consent given by: patient Patient agrees, verbalizes understanding, and wants to proceed: yes Indications: Indications: abnormal uterine bleeding Pre-procedure: Urine test: negative Procedure: A bimanual exam was performed: no Tenaculum used: yes A local block was performed: no Local anesthetic: none Cervix dilated: no Findings: Cervix: normal Specimen collected: specimen collected and [facility] Ql (U)o n 02-15-2024 Interpretation and review of laboratory results Normal [facility] re Preg Test, Ur Negative Negative [facility] [employer] Jerome 02-15-2024 L - -------- Specimen: [id number] Received: 02/16/24 Status: NGHIA Aden Num: [id number] Spec Type: Surgical Subm Dr: Jethro Chavez Tissues: A Endometrium - Biopsy (EMBX) Procedures: HE/2, Bharat/Tate L4 -------- Age/ Patient Sex Location Account Attending Physician -------- Delvis Salcedo 44/F LABELL [id number] Jethro Chavez -------- SPEC NUM: [id number] RECD: 02/16/24 STATUS: NGHIA ADEN NUM: [id number] RIO: 02/15/24- SUBM : Jethro Chavez ENTERED: 02/16/24 NEELA JOHNSTON: Paolo Benitez SPEC TYPE: Surgical DEPT: GIGI DOBBINS ENTERED BY: [id number] RECV BY: [id number] ORDERED: HE/2, Gross/Micro L4 ORDERED: HE/2, Gross/Micro [...] entirely submitted in a single cassette. (1, ns, [id number]) Microscopic Description Microscopic examinations are performed supporting the above interpretation -------- Specimen: [id number] Received: 02/16/24 Status: NANCIRanulfo Aden Num: [id number] Spec Type: Surgical Subm Dr: Jethro Chavez Tissues: A Endometrium - Biopsy (EMBX) Procedures: GI, Bharat/Micro L4 -------- Patient: Delvis Salcedo [id number] (Continued) -------- Specimen: [id number] Received: 02/16/24 (Continued) Signed (signature on file) Leigh Taylor MD 02/19/24 1608 -------- Specimen: [id number] Received: 02/16/24 Status: NGHIA Aedn Num: [id number] Spec Type: Surgical Subm Dr: Jethro Chavez Tissues: A Endometrium - Biopsy (EMBX) Procedures: Bharat ANGELO/Tate L4 -------- Patient: Delvis Salcedo [id number] (Continued) -------- Specimen: [id number] Received: 02/16/24 (Continued) CPT Codes 01032 -------- -------- Specimen: [id number] Received: 02/16/24120 Status: NGHIA Aden Num: [id number] Spec Type: Surgical Subm Dr: Jethro Chavez Tissues: A Endometrium - Biopsy (EMBX) Procedures: HE/Bharat Richard/Tate L4 -------- Patient: Delvis Salcedo [id number] (Continued) -------- Signed (signature on file) Leigh Taylor MD 02/19/24 0013 Normal [facility] COVID Quick Testingon 2020 Result Negative [employer] Other CARDIAC KARLI ADMITon 018 CKMB 0.30 ng/mL Normal <=2.37 [facility] Comment on above: Performed By: #### JIM Kong MP ####[facility] Nlovtcjjwd4442 [address] [place] Creatine kinase (CK) 84 U/L Normal 30-135 [facility] Comment on above: Performed By: #### JIM Kong MP ####[facility] [address] [place] [address] [place] INR Coag RelTime (Bld) SEE BELOW Normal [facility] Comment on above: Result Comment: <0.0 34 ng/ml NEGATIVE 0.034-0.119 INDETERMINATE 0.120 AMI CUT OFF Performed By: #### JIM Kong MP ####[facility] [address] [place] [address] [place] SURINDER 43.1 ng/mL Normal <=61.5 [facility] Comment on above: Performed By: #### JIM Kong MP ####[facility] [address] [place] [address] [place] TROP <0.012 Normal <=0.034 [facility] Comment on above: Performed By: #### JIM Kong MP ####[facility] [address] [place] [address] [place] CBC W MANUAL DIFFon 06-15-19 18 BAND # 0.2 103/ul Normal 0.0-0.3 [facility] Comment on above: Performed By: #### Velma MEDRANO ####[facility] [address] [place] [address] [place] BAND % 3 % Normal 0-5 [facility] Comment on above: Performed By: #### Velma MEDRANO ####[facility] [address] [place] [address] [place] BASOM % 0.0 % Critically low 0.2-2.0 [facility] Comment on above: Performed By: #### Velma MEDRANO ####[facility] Aw[address]sp[address] [place] [address] [place] Basophils Auto #/vol (Bld) 0.00 103/ul Normal 0.00-0.10 [facility] Comment on above: Performed By: #### C MITCHELL ####[facility] Fmffmauywu9933 [place] [id number] BLAST # Normal [facility] Comment on above: Performed By: #### C MITCHELL ####[facility] Cqdesrkeyj1753 [place] [id number] BLAST % Normal [facility] Comment on above: Performed By: #### C MITCHELL ####[facility] Hjanscxdvx0756 [place] [id number] Eosinophils 0.00 103/ul Normal 0.00-0.70 [facility] Comment on above: Performed By: #### C MITCHELL ####[facility] [address] [place] [address] [place] Eosinophils/100 leukocytes 0.0 % Critically low 0.9-7.0 [facility] Comment on above: Performed By: #### C MITCHELL ####[facility] Dxub[address]xrs[address] [place], [place] [address]ken [place] Erythrocyte distribution width Auto Ratio (RBC) 12.8 % Normal 11.0-15.0 [facility] Comment on above: Performed By: #### Velma MEDRANO ####[facility] Lexibuirhe[address] [place], [place] [address] Erythrocytes (RBC) 4.68 106/ul Normal 4.20-5.40 [facility] Comment on above: Performed By: #### Velma MEDRANO ####[facility] [address] [place], [place] [address] Erythrocytes (RBC) Normal [facility] Comment on above: Performed By: #### C MITCHELL ####[facility] Dxhouhtrbf[address] [place], [place] [address] Hematocrit (HCT) 43.0 % Normal 36.0-48.0 [facility] Comment on above: Performed By: #### Velma MEDRANO ####[facility] Prpfqznvnp4975 [place] [address] Hemoglobin mass conc (Bld) 14.8 g/dL Normal 12.0-16.0 [facility] Comment on above: Performed By: #### Velma MEDRANO ####[facility] Jghpasbtgz9655 [place] [address] Lymphocytes 0.66 103/ul Critically low 1.20-3.80 [facility] Comment on above: Performed By: #### Velma MEDRANO ####[facility] Gmqzorrkyu3204 [place] [id number] Lymphocytes Normal [facility] Comment on above: Performed By: #### Vemla MEDRANO ####[facility] [address] [place] [address] [place] Lymphocytes/100 leukocytes 10.0 % Critically low 20.5-60.0 [facility] Comment on above: Performed By: #### Velma MEDRANO ####[facility] X[address]vzu[address] [place], [place] [address]Ger[place] Lymphocytes/100 leukocytes Normal [facility] Comment on above: Performed By: #### Velma MEDRANO ####[facility] [address]qwar[address] [place] [address] [place] MCH 31.6 pg Normal 26.7-34.0 [facility] Comment on above: Performed By: #### Velma MEDRANO ####[facility] T[address] [place], [place] [address] MCHC mass conc (RBC) 34.4 g/dL Normal 29.9-35.2 [facility] Comment on above: Performed By: #### Velma MEDRANO ####[facility] Sbfzgydrnm5981 [place] [id number] MCV 91.9 fL Normal 81.0-99.0 [facility] Comment on above: Performed By: #### Velma MEDRANO ####[facility] Nytnek[address] [place], [place] [address] METAMYELOCYTE # Normal [facility] Comment on above: Performed By: #### Velma MEDRANO ####[facility] Nfvqvorwqe2936 [place], [place] [address]Dediwe Jane METAMYELOCYTE % Normal [facility] Comment on above: Performed By: #### C MITCHELL ####[facility] Erqljewvob[address] [place], [place] [address]Kgzeng [place] MONOM# 0.40 103/ul Normal 0.30-0.80 [facility] Comment on above: Performed By: #### C MITCHELL ####[facility] Gudowgfagt5881 [place] [id number] MONOM% 6.0 % Normal 1.7-12.0 [facility] Comment on above: Performed By: #### C MITCHELL ####[facility] [address] [place], [place] [address] MYELOCYTE # Normal [facility] Comment on above: Performed By: #### C MITCHELL ####[facility] Owvh[address]wfsqx[address] [place], [place] [address] MYELOCYTE % Normal [facility] Comment on above: Performed By: #### C MITCHELL ####[facility] Cyuvzwrurt[address] [place], [place] [address] Platelet mean volume (PMV) 11.3 fL Normal 9.5-13.5 [facility] Comment on above: Performed By: #### C MITCHELL ####[facility] [address]cp[address] [place], [place] [address] Platelets 137 103/ul Critically low 150-450 [facility] Comment on above: Performed By: #### C MITCHELL ####[facility] Eknuyjhhly3747 [place], [place] [address]Jieyyz Jane SEG # 5.35 103/ul Normal 1.40-6.50 [facility] Comment on above: Performed By: #### C MITCHELL ####[facility] Oezysallyv0051 [place] [id number] Segmented Neutrophils/100 leukocytes 81.0 % Critically high 43.0-75.0 [facility] Comment on above: Performed By: #### C MITCHELL ####[facility] Egnemuzuwz5142 [place], [place] [address]Pdkxzq [place] WBC (Leukocytes) 6.6 103/ul Normal 4.0-11.0 [facility] Comment on above: Performed By: #### C IMTCHELL ####[facility] H[address]avnybne[address] [place], [place] [address]Dqhrqg [place] WBC (Leukocytes) Normal 4.0-11.0 [facility] Comment on above: Performed By: #### C MITCHELL ####[facility] Ogexjxbncw9416 [place], [place] [address]Xfweyh Jane ER URINE PROFILEon 8 Bilirubin (total) Negative Normal NEGATIVE The [facility] Comment on above: Performed By: #### MIRTA JAVED ####[facility] [address] [place] [address] [place] BLOOD TRACE-INTACT Normal NEGATIVE [facility] Comment on above: Performed By: #### MIRTA JAVED ####[facility] Xnevqstiij[address] [place], [place] [address] ERUAHD A micrscopic examination will be performed if indicated. Normal [facility] Comment on above: Performed By: #### MIRTA JAVED ####[facility] [address]af[address] [place], [place] [address] Glucose mass conc Negative Normal NEGATIVE [facility] Comment on above: Performed By: #### MIRTA JAVED ####[facility] Zkyycfmhes8164 [place] [id number] pH of blood 6.0 [pH] Normal 5-9 [facility] Comment on above: Performed By: #### MIRTA JAVED ####[facility] Ivjkjmuoyr6145 [place] [id number] Protein Negative Normal [facility] Comment on above: Performed By: #### MIRTA JAVED ####[facility] Slpxmbusyq[address] [place], [place] [address] SPEC GRAVITY 1.025 Normal 1.005-<=1.025 [facility] Comment on above: Performed By: #### MIRTA JAVED ####[facility] Dowkmevial[address]46 [address] [place] UR MICRO IND INDICATED Normal [facility] Comment on above: Performed By: #### PATRICIO JAVEDRO ####[facility] Tgqlchgwxp4175 [address] [place] Urine, clarity CLEAR Normal [facility] Comment on above: Performed By: #### PATRICIO JAVEDRO ####[facility] [address] [place] [address] [place] Urine, color YELLOW Normal YELLOW [facility] Comment on above: Performed By: #### PATRICIO JAVEDRO ####[facility] Y[address]ce[address] [place] [address] [place] Urine, ketones presence Negative Normal NEGATIVE [facility] Comment on above: Performed By: #### PATRICIO JAVEDRO ####[facility] [address]prfns[address] [place] [address] [place] Urine, nitrite presence Negative Normal NEGATIVE [facility] Comment on above: Performed By: #### PATRICIO JAVEDRO ####[facility] [address] [place] [address] [place] Urine, urobilinogen 0.2 {Stephanie'U}/dL Normal [facility] Comment on above: Performed By: #### PATRICIO JAVEDRO ####[facility] [address] [place] [address] [place] WBC (Leukocytes) Negative Normal NEGATIVE [facility] Comment on above: Performed By: #### PATRICIO JAVEDRO ####[facility] I[address] [place] [address] [place] PREG HCG QUALon 06-14-2017 , QUAL Negative Normal NEGATIVE [facility] Comment on above: Performed By: #### P REG ####[facility] Ayrvfdgeyy[address] [place], [place] [address] PROF CHEM 8 (BAS METB)on Anion gap 12.5 mmol/L Normal [facility] Comment on above: Performed By: #### JIM Kong MP ####[facility] Ovtbbmclrs0306 [place] [id number] BUN/Creatinine Ratio 16.1 mg/mg Normal [facility] Comment on above: Performed By: #### B JIM MEHTA ####[facility] Kwfvckfbkb4289 [address] [place] Calcium 9.6 mg/dL Normal 8.4-10.2 [facility] Comment on above: Performed By: #### B JIM MEHTA ####[facility] [address] [place] [address] [place] Chloride 102 mmol/L Normal 98-107 [facility] Comment on above: Performed By: #### B JIM MEHTA ####[facility] [address] [place] [address] [place] CO2 26.0 mmol/L Normal 22.0-30.0 [facility] Comment on above: Performed By: #### JIM Kong MP ####[facility] [address] [place] [address] [place] Creatinine 0.74 mg/dL Normal 0.52-1.04 [facility] Comment on above: Performed By: #### JIM Kong MP ####[facility] Ldqlvhefyq9072 [place] [id number] eGFR (non-black) mL/min/{1.73_m2} Normal >=60 Th [facility] Comment on above: Performed By: #### JIM Kong MP ####[facility] R[address]pxwuyl[address] [place], [place] [address] Glucose mass conc 94 mg/dL Normal 74-106 [facility] Comment on above: Performed By: #### JIM Kong MP ####[facility] [address]cv[address] [place] [address], [place] [address]Asnlnj [place] Potassium molar conc 4.2 mmol/L Normal 3.4-5.0 [facility] Comment on above: Performed By: #### B TYSON, LEILADM ####[facility] Vdgbkcasfw3351 [place] [address] Sodium 137 mmol/L Normal 137-145 [facility] Comment on above: Performed By: #### B TYSON, LEILADM ####[facility] Jonzfyrvfc7602 [place] [address] Urea nitrogen 12.0 mg/dL Normal 7.0-17.0 [facility] Comment on above: Performed By: #### B TYSON, JIM ####[facility] Lhzeeottjm7089 [place] [address] URINE MICROSCOPIC ONLYon CAST NONE SEEN Normal NONE SEEN [facility] Comment on above: Performed By: #### Tatum MORALES UMICRO ####[facility] [address] [place] [address] [place] CULTURE NOT INDICATED Normal [facility] Comment on above: Performed By: #### Tatum MORALES UMICRO ####[facility] [address] [place] [address] [place] Erythrocytes (RBC) 2-5 Normal 0-2 [facility] Comment on above: Performed By: #### Tatum MORALES UMICRO ####[facility] Dsiopdfcwy9706 [place] [address] MUCOUS MODERATE Normal NONE SEEN [facility] Comment on above: Performed By: #### Tatum MORALES UMICRO ####[facility] Oieoyuolio0729 [place] [address] Urine, bacteria in sediment NONE SEEN Normal NONE SEEN [facility] Comment on above: Performed By: #### Tatum MORALES UMICRO ####[facility] Hvvctvzbtt8470 [place] [address] Urine, crystals in sediment NONE SEEN Normal NONE SEEN [facility] Comment on above: Performed By: #### E RUR, UMICRO ####[facility] [address]udr[address] [place], [place] [address]Ptdnil [place] Urine, epithelial cells in sediment FEW Normal [facility] Comment on above: Performed By: #### MIRTA JAVED ####[facility] Biqfezevqy9[address] [place], [place] [address] WBC (Leukocytes) NONE SEEN Normal NONE SEEN [facility] Comment on above: Performed By: #### MIRTA JAVED ####[facility] Xvnekkbdxv6010 [place], [place] [address]Jznbxy [place] Vital Signs Date Time Vital Sign Value Performing Clinician Facility 02-27-2024 10:48-0500 Body mass index (BMI) [Ratio] 24.3 kg/m2 Jethro Kathy DO Work Phone: [facility] 02-27-2024 10:48-0500 Body weight 66.22 kg Jethro Kathy DO Work Phone: [facility] 02-27-2024 10:48-0500 Diastolic blood pressure 70 mm[Hg] Jethro Kathy DO Work Phone: [facility] 02-27-2024 10:48-0500 Systolic blood pressure 110 mm[Hg] Jethro Kathy DO Work Phone: [facility] 02-15-2024 09:44-0500 Body mass index (BMI) [Ratio] 25.13 kg/m2 Jethro Kathy DO Work Phone: [facility] 02-15-2024 09:44-0500 Body weight 68.49 kg Jethro Kathy DO Work Phone: [facility] 02-15-2024 09:44-0500 Diastolic blood pressure 70 mm[Hg] Jethro Kathy DO Work Phone: [facility] 02-15-2024 09:44-0500 Systolic blood pressure 118 mm[Hg] Jethro Kathy DO Work Phone: [facility] 12-13-2023 13:53-0500 Body height 165.1 cm Jethro Kathy DO Work Phone: [facility] 12-13-2023 13:53-0500 Body mass index (BMI) [Ratio] 24.1 kg/m2 Jethro Kathy DO Work Phone: [facility] 12-13-2023 13:53-0500 Body weight 65.68 kg Jethro Kathy DO Work Phone: [facility] 12-13-2023 13:53-0500 Diastolic blood pressure 70 mm[Hg] Jethro Kathy DO Work Phone: [facility] 12-13-2023 13:53-0500 Systolic blood pressure 120 mm[Hg] Jethro Kathy DO Work Phone: [facility] 10-18-2023 08:42-0400 Body height 165.[address] [facility] 10-18-2023 08:42-0400 Body mass index (BMI) [Ratio] 24.7 kg/m2 [facility] 10-18-2023 08:42-0400 Body weight 67.[address] [facility] 10-18-2023 08:42-0400 Diastolic blood pressure 89 mm[Hg] [facility] 10-18-2023 08:42-0400 Heart rate 74 /min [facility] 10-18-2023 08:42-0400 Respiratory rate 12 /min [facility] 10-18-2023 08:42-0400 Systolic blood pressure 134 mm[Hg] [facility] 09-19-2023 08:58-0400 Body height 165.[address] [facility] 09-19-2023 08:58-0400 Body mass index (BMI) [Ratio] 23.7 kg/m2 [facility] 09-19-2023 08:58-0400 Body weight 64.[address] [facility] 09-19-2023 08:58-0400 Diastolic blood pressure 92 mm[Hg] [facility] 09-19-2023 08:58-0400 Heart rate 79 /min [facility] 09-19-2023 08:58-0400 Respiratory rate 12 /min [facility] 09-19-2023 08:58-0400 Systolic blood pressure 142 mm[Hg] [facility] 09-11-2023 09:40-0400 Body height 165.[address] [facility] 09-11-2023 09:40-0400 Body mass index (BMI) [Ratio] 23.3 kg/m2 [facility] 09-11-2023 09:40-0400 Body temperature 99.4 [degF] [facility] 09-11-2023 09:40-0400 Body weight 63.[address] [facility] 09-11-2023 09:40-0400 Heart rate 75 /min [facility] 09-11-2023 09:40-0400 Respiratory rate 18 /min [facility] 09-11-2023 09:40-0400 SaO2% (BldA) [Mass fraction] 99 % [facility] 09-06-2023 10:56-0400 Body height 165.[address] [facility] 09-06-2023 10:56-0400 Body mass index (BMI) [Ratio] 23.3 kg/m2 [facility] 09-06-2023 10:56-0400 Body temperature 98.4 [degF] [facility] 09-06-2023 10:56-0400 Body weight 63.[address] [facility] 09-06-2023 10:56-0400 Diastolic blood pressure 83 mm[Hg] [facility] 09-06-2023 10:56-0400 Heart rate 77 /min [facility] 09-06-2023 10:56-0400 Respiratory rate 18 /min [facility] 09-06-2023 10:56-0400 SaO2% (BldA) [Mass fraction] 98 % [facility] 09-06-2023 10:56-0400 Systolic blood pressure 132 mm[Hg] [facility] 01-16-2021 14:00-0500 Body height 165.1 cm Kitty Byrnes Other [employer] Other 01-16-2021 14:00-0500 Body mass index (BMI) [Ratio] 20.8 kg/m2 Kitty Byrnes Other [employer] Other 01-16-2021 14:00-0500 Body temperature 97.1 [degF] Kitty Byrnes Other [employer] Other 01-16-2021 14:00-0500 Body weight 56.7 kg Kitty Byrnes Other [employer] Other 01-16-2021 14:00-0500 Respiratory rate 18 /min Kitty Byrnes Other [employer] Other 01-16-2021 14:00-0500 SaO2% (BldA) [Mass fraction] 99 % Kitty Byrnes Other [employer] Other Encounters Encounter Date Encounter Type Care Provider Facility Start: 03-06-2024 End: 03-07-2024 Clinisync Result Encounter Jethro Kathy DO Work Phone: [facility] Unsolicited Start: 03-06-2024 End: 03-07-2024 Clinisync Result Encounter Jethro Kathy DO Work Phone: [facility] Unsolicited Start: 02-27-2024 End: 02-27-2024 Bamboo flowsheet Jethro Kathy DO Work Phone: [facility] Start: 02-27-2024 End: 03-01-2024 Bamboo flowsheet Jethro Kathy DO Work Phone: [facility] Start: 02-27-2024 End: 03-01-2024 Clinisync Result Encounter Jethro Kathy DO Work Phone: [facility] Unsolicited Start: 02-27-2024 End: 02-27-2024 Patient encounter procedure Jethro Kathy DO Work Phone: [facility] Start: 02-27-2024 End: 02-27-2024 Periodic preventive med est patient 40-64yrs Jethro Hydezio DO Work Phone: [facility] Comment on above: Well woman exam with routine gynecological exam; Breast cancer screening by mammogram; Pre-op examination; Menorrhagia with regular cycle; Abnormal uterine bleeding; Pelvic pain in female Start: 02-27-2024 End: 02-27-2024 Preprocedural examination done Jethro Condono DO Work Phone: [facility] Start: 02-15-2024 End: 02-15-2024 Patient encounter procedure Jethro Condono DO Work Phone: [facility] Comment on above: Menorrhagia with reg ular cycle Start: 02-15-2024 End: 02-15-2024 ambulatory [facility] Work Phone: Start: 02-15-2024 End: 02-15-2024 Departed Referred Jethro Condono DO Work Phone: [facility] Start: 12-13-2023 End: 12-13-2023 Bamboo flowsheet Jethro Kathy DO Work Phone: [facility] Start: 12-13-2023 End: 12-13-2023 Bamboo flowsheet Jethro Kathy DO Work Phone: [facility] Start: 12-13-2023 End: 12-13-2023 Office outpatient visit 15 minutes Jethro Kathy DO Work Phone: [facility] Comment on above: Irregular menstrual bleeding Start: 10-18-2023 End: 10-18-2023 ambulatory [facility] Work Phone: Start: 10-18-2023 End: 10-18-2023 Encounter for general adult medical examination without abnormal findings [facility] Start: 10-18-2023 End: 10-18-2023 Patient encounter procedure [facility] Work Phone: Start: 10-15-2023 Patient encounter status [facility] Start: 09-19-2023 End: 09-19-2023 ambulatory [facility] Work Phone: Start: 09-19-2023 End: 09-19-2023 [facility] procedure [facility] Work Phone: Start: 09-11-2023 End: 09-11-2023 ambulatory [facility] Work Phone: Start: 09-11-2023 End: 09-11-2023 Patient encounter procedure [facility] Work Phone: Start: 09-06-2023 End: 09-06-2023 ambulatory [facility] Work Phone: Start: 09-06-2023 End: 09-06-2023 Patient encounter procedure [facility] Work Phone: Start: 01-16-2021 (URG) Urgent Care Visit Kitty izquierdo [facility] Start: 01-16-2021 End: 01-16-2021 ambulatory Kitty Byrnes Other [employer] Other Start: 06-14-2017 End: 06-14-2017 Ambulatory JUANITA DIAZ Facility: Procedures Date Procedure Procedure Detail Performing Clinician Start: 03-06-2024 ECG 12-LEAD Jethro Fazi o DO Work Phone: Start: 02-27-2024 IGP,APTIMA HPV,AGE GDLN Jethro Kathy DO Work Phone: Start: 02-15-2024 ENDOMETRIAL BIOPSY Core y Kathy DO Work Phone: Start: 02-15-2024 Urine test visual color cmprsn meths Jethro Kathy DO Work Phone: Plan of Treatment [...] Procedure [facility] [address] [place] [id number] [facility] Start: 02-15-2024 End: 02-14-2025 US Pelvis US Pelvis w/ TV Imaging Routine Menorrhagia with regular cycle Expected: 02/15/2024, Expires: 02/14/2025 [facility] Work Phone: Comment on above: Expected: 02/15/2024 , Expires: 02/14/2025 Start: 01-17-2024 End: 01-17-2024 Patient encounter procedure 01/17/2024 2:40 PM EST Consult [facility] [address] [place] [id number] Jethro Chavez, DO [address] [place] [address] [facility] Start: 01-08-2024 End: 01-08-2024 Patient encounter procedure 01/08/2024 1:30 PM EST Procedure Visit [facility] [address] [place] [id number] Jethro Chavez, DO [address] [place] [address] [facility] Start: 12-13-2023 End: 12-12-2024 US for US PELVIS-TRANSVAG IF INDICATED Imaging Routine Irregular menstrual bleeding Expected: 12/13/2023 (Approximate), Expires: 12/12/2024 [facility] [employer] Work Phone: Comment on above: Expected: 12/13/2023 (Approximate), Expires: 12/12/2024 Comprehensive metabo lic 2000 panel - Serum or Plasma [facility] MG Breast - bilatera l Screening [facility] THIN PREP TIS PAP AN D HR HPV DNA THIN PREP TIS PAP AND HR HPV DNA Pathology and Cytology Routine Well woman exam with routine gynecological exam Ordered: 02/27/2024 [employer] Comment on above: Ordered: 02/27/2024 [facility] Payers Date Payer Category Payer Self-pay 2021 [facility] [place] [id number] 1959 Unknown [id number] Unknown [employer] [id number] Unknown [id number] Social History Date Type Detail Facility Sex Assigned At [employer] Other Start: 09-06-2023 End: 09-06-2023 Tobacco smoking status NHIS Never smoked tobacco (finding) [facility] Start: 1980 Sex Assigned At Female F [facility] Tobacco smoking status NHIS Tobacco smoking consumption unknown [facility] Start: 12-13-2023 Gender identity Identifies as female gender (finding) [facility] Start: 02-17-2024 Sex Female (finding) [facility] Clinical Notes 01-16-2021 to 02-27-2024 Katelynn Aquino - 02/27/2024 10:30 AM Zack Oconnor, CORE FILER - 02/15/2024 9:30 AM Davdi Samson, [facility] - 12/13/2023 1:40 PM EST Note Date & Type Note Facility 02-27-2024 History of Presen t illness Narrative Reason for Appointment: Patient ID: Delvis Salcedo is a 44 y.o. female who presents for Gynecologic Exam and Pre-op Visit Patient presents today for Pre Op/Annual appointment. Patient is scheduled to undergo Endometrial Ablation with Ramona on 03/15/[address] Chavez at [facility]. MEDICATIONS No current outpatient medications ALLERGIES No [...] reviewed, and patient is to proceed to [facility] OR. Follow Up: Patient is to follow up between 1-2 weeks post op to assess proper healing and recovery from procedure. Documented by Jane Samson LPN on behalf of: Jethro Chavez DO documented in this encounter [facility] 02-15-2024 History of Presen t illness Narrative Associated Order(s): Endometrial biopsy Pre-Procedure Diagnose(s): Menorrhagia with regular cycle Post-Procedure Diagnose(s): Menorrhagia with regular cycle Reason for Appointment: Patient ID: Delvis Salcedo is a 44 y.o. female who presents [...] nursing note reviewed. Exam conducted with a telecommunications technician present. Vitals: Estimated body mass index is [...] biopsy Date/Time: 02/15/2024 10:17 AM Performed by: Jethro Chavez DO Authorized by: Jethro Chavez DO Consent: Consent obtained: written Consent [...] by Alejandra Oconnor LPN on behalf of: Jethro Chavez DO documented in this encounter [facility] 12-13-2023 History of Presen t illness Narrative Reason for Appointment: Patient ID: Delvis Salcedo is a 43 y.o. female who presents [...] nursing note reviewed. Exam conducted with a telecommunications technician present. Vitals: Estimated body mass index is [...] by Jane Samson LPN on behalf of: Jethro Chavez DO documented in this encounter [facility] 01-16-2021 Evaluation note Encounter Date Diagnosis Assessment [...] care instructions given in writting by [facility] At Home document. [employer] Other Evaluation noteNo assessment information available [facility] Work Phone: Evaluation note* Diagnosis Onset Date Resolution Status Insect bites acute Insect bites acute [facility] Work Phone: Evaluation note* Diagnosis Onset Date Resolution Status Insect bites acute Insect bites acute Staph infection acute Bug bite with infection none active [facility] Work Phone: Evaluation note* Diagnosis Onset Date Resolution Status Staph infection acute Bug bite with infection none active Folliculitis acute Screening for colon cancer a cute Screening mammogram for breast cancer acute Wellness examination acute [facility] Work Phone: Evaluation note* Diagnosis Irregular [...] - Reported* Type Description Date Medical History verchad [employer] Other Summary Purpose Family History No Family [...] section and content) DATE CREATED AUTHOR 07/26/2017 Shanon lemons DATE CREATED AUTHOR AUTHOR'S ORGANIZ ATION 02/21/2024 [facility] REASON FOR VISIT (unrecogniz ed section and content) Reason Comments Menstrual Problem Reason Comments Menorrhagia Reason Comments Gynecologic Exam Pre-op Visit Care Teams (unrecognized sec tion and content) Team Status: Active Member Role Status Dates Davina Razo APRN NP-Velma Primary Care Provider Active Team Status: Inactive Member Role Status Dates Davina Razo APRN CONSTRUCTION PROJECT ENGINEER-Velma Primary Care Provider Active Start: September 06, 2023 End: September 06, 2023 Lisa Guardado APRN Attending Provider Active S tart: September 06, 2023 End: September 06, 2023 Team Status: Inactive Member Role Status Dates Davina Razo APRN CONSTRUCTION PROJECT ENGINEER-C Primary Care Provider Active Start: September 11, 2023 End: September 11, 2023 Lisa Guardado APRN Attending Provider Active S tart: September 11, 2023 End: September 11, 2023 Team Status: Inactive Member Role Status Dates Davina Razo APRN CONSTRUCTION PROJECT ENGINEER-C Primary Care Provider Active Start: September 06, 2023 End: September 06, 2023 Lisa DIAS APRN Attending Provider Active Start: September 06, 2023 End: September 06, 2023 Team Status: Inactive Member Role Status Dates Davina Razo APRN CONSTRUCTION PROJECT ENGINEER-C Primary Care Provider Active Start: September 11, 2023 End: September 11, 2023 Lisa DIAS APRN Attending Provider Active Start: September 11, 2023 End: September 11, 2023 Team Status: Inactive Member Role Status Dates Davina Razo APRN CONSTRUCTION PROJECT ENGINEER-C Primary Care Provider Active Start: September 19, 2023 End: September 19, 2023 Ra Potter DO Attending Provider Active Sta rt: September 19, 2023 End: September 19, 2023 Team Status: Inactive Member Role Status Dates Davina Razo APRN CONSTRUCTION PROJECT ENGINEER-C Primary Care Provider Active Start: October 072023 End: October 18, 2023 Ra Potter DO Attending Provider Active Sta rt: October 18, 2023 End: October 18, 2023 Varnish Maker Relationship Specialty Start Date End Date Ra Potter MD [address] [place] [phone] PCP - General Internal Medicine 12/13/23 Varnish Maker Relationship Specialty Start Date End Date Ra Potter MD [address] [place] [phone] PCP - General Internal Medicine 12/13/23 Varnish Maker Relationship Specialty Start Date End Date Ra Potter MD [address] [place] [phone] PCP - General Internal Medicine 12/13/23 Team Status: Inactive Member Role Status Dates Jethro Chavez DO Attending Provider Active Start : February 15, 2024 End: February 15, 2024 Varnish Maker Relationship Specialty Start Date End Date Ra Potter MD [address] [place] [phone] PCP - General Internal Medicine 12/13/23 Varnish Maker Relationship Specialty Start Date End Date Ra Potter MD [address] [place] [phone] PCP - General Internal Medicine 12/13/23 Goals [...] BE BASED ON THE PRIMARY CLINICAL RECORDS. [employer] provides no warranty or guarantee of the accuracy or completeness of information in this document.
[2024-03-15 06:55] LABS: Basophils Percent Auto 0.9 % (0.2-2.0); Eosinophils Percent Auto 0.7 % (0.9-7.0); Hematocrit 39.7 % (36.0-48.0); Hemoglobin 13.5 g/dL (12.0-16.0); Immature Granulocytes Abs Auto 0.01 10^3/uL (0.00-0.03); Immature Granulocytes Pct Auto 0.2 % (0.0-0.5); Lymphocytes Absolute Auto 1.8 10^3/uL (1.2-3.8); Lymphocytes Percent Auto 40.4 % (20.5-60.0); Mean Corpuscular Volume 94.1 fL (81.0-99.0); Mean Platelet Volume 10.2 fL (9.5-13.5); Monocytes Absolute Auto 0.4 10^3/uL (0.3-0.8); Monocytes Percent Auto 8.2 % (1.7-12.0); Neutrophils Absolute Auto 2.2 10^3/uL (1.4-6.5); Neutrophils Percent Auto 49.6 % (43.0-75.0); Platelet Count 212 10^3/uL (150-450); Red Blood Count 4.22 10^6/uL (4.20-5.40); Red Cell Distribution Width 12.2 % (11.0-15.0); White Blood Count 4.4 10^3/uL (4.0-11.0)
[2024-03-15 07:00] VITALS: BP 126/89; PULSE 97; TEMP 35.8; O2SAT 99; BMI 23.8
[2024-03-15] MEDS: LACTATED RINGER'S SOLUTION 1,000 ML 50 ML IV (07:20)
[2024-03-15 07:28] LABS: HCG Quantitative <1 mIU/mL
[2024-03-15] MEDS: ALBUTEROL SULFATE 2.5 MG/3 ML VIAL NEB IH (07:45)
[2024-03-15 08:09] VITALS: PULSE 81; O2SAT 99
[2024-03-15] MEDS: LACTATED RINGER'S SOLUTION 1,000 ML 1000 ML IV (09:38)
--- NOTE | 2024-03-15 09:45 | PM.ONB ---
Brief Operative Note Date of procedure: 03/15/24 Pre-op diagnosis general: menorrhagia Post-op diagnosis: same as pre-op Procedure: NAME OF PROCEDURE: [ ] Ramona endometrial ablation with hysteroscopy. PROCEDURE: The patient was taken back to the OR where she was prepped and draped in the normal sterile fashion after being placed in the dorsal lithotomy position, after being placed under general anesthesia without difficulty.? A weighted speculum was placed into the vagina. The anterior lip was grasped with a single tooth tenaculum. The patient was then sounded to approximated 8cm. The patient?s cervix was gently dilated using hegardilators. The hysteroscope was passed through the cervix into the uterus where both ostia were seen. No gross evidence of polyps, fibroids or malignancy. The cervical length was noted to be 4 cm. The total cavity length is 4cm.? The Ramona ablation apparatus was set to approximately 4cm in length. This was placed through the cervix and into the uterus. After the seal was tested, at that time the total ablation of 120 seconds was performed with the Ramona withoutdifficulty. All instruments were removed from the vagina. Excellent hemostasis noted.? Sponge and lap count correct times 2.? Patient taken to recovery in stable condition. Anesthesia: GETA Surgeon: Kade Chavez Estimated blood loss (mL): 5 Pathology: none sent Condition: stable Disposition: PACU Urinary Catheter Management Urinary Catheter Management Urethral: Cath placed during this visit: no
[2024-03-15 09:47] VITALS: BP 108/70; PULSE 103; TEMP 36.4; O2SAT 97
[2024-03-15 10:02] VITALS: BP 116/81; PULSE 83; O2SAT 97
[2024-03-15 10:32] VITALS: BP 115/83; PULSE 53; O2SAT 100
--- NOTE | 2024-03-15 10:45 | PC.NURSE ---
Peripad dry; up to bathroom and voids clear yellow without difficulty
== END 2024-03-15 10:48 | disposition home or self-care (01) ==
PROVIDERS: PCP Internal Medicine; Visit Provider Obstetrics & Gynecology
PROC: (CPT 952; principal; 2024-03-15 08:05)
DX: N92.0 Excessive and frequent menstruation with regular cycle (principal); N93.9 Abnormal uterine and vaginal bleeding, unspecified; R10.2 Pelvic and perineal pain; Z87.891 Personal history of nicotine dependence; K21.9 Gastro-esophageal reflux disease without esophagitis
CPT/HCPCS: 58563; 36415; 84702; 85025; 94640; J1885; J2250; J2405; J2704; J3010

== ENCOUNTER 2024-12-09 12:49 | Outpatient (OUT) | payer BC, SELFPAY ==
--- OUTSIDE RECORDS SUMMARY | 2024-12-09 12:54 | XMS_ITS | Clinical Summary ---
Author Organization [facility] Address [address] [place] [address] Care Team Providers Care Mining Analyst Name Role Phone Ra Potter DO Primary Care Provider [phone] Allergies No known active allergies Medications No known medications Active Problems ProblemNoted DateDiagnosed DateMenorrhagia with regular cycle02/15/2024 Social History Tobacco UseTypesPacks/DayYears UsedDateSmoking Tobacco: Never Assessed CommentsNoSex and Gender InformationValueDate RecordedSex Assigned at Nfwlto7912/13/2023 11:39 AM ESTLegal OiuJcvmvl34/15/2023 8:05 PM EDTGender QhhpuxapVumrtc32/06/2024 11:39 AM ESTSexual OrientationNot on file Last Filed Vital Signs Vital SignReadingTime TakenCommentsBlood Ypdrbxnh399/70002/27/2024 10:48 AM EST Pulse--Temperature--Respiratory Rate--Oxygen Saturation--Inhaled Oxygen Concentration--Wblmva80.2 kg (146 lb)02/27/2024 10:48 AM GSKPcqjdp759.1 cm (5' 5 )12/13/2023 1:53 PM ESTBody Mass Index24. 1:53 PM EST Plan of Treatment Not on file Insurance * Guarantor: Georges Rosario TypeRelation to PatientDate of BirthPhone Billing AddressPersonal/WkmoamWrma06/06/1981 [address] [place] [address] Care Teams Team MemberRelationshipSpecialtyStart DateEnd Date Ra Potter DO PCP - GeneralInternal Hysxjujy06/6/24
--- OUTSIDE RECORDS SUMMARY | 2024-12-09 12:57 | XMS_ITS | CCD ---
Author Organization [facility] CliniSynh Care Team Providers Care Quality Assurance Project Manager Name Role Phone JUANITA DIAZ Unavailable Unavailable MAXWELL RAMIREZ Unavailable Unavailable JAMES, MAXWELL Unavailable Unavailable JAMES, MAXWELL Unavailable Unavailable Kitty Byrnes Unavailable Ra Potter MD Primary Care Provider Jethro Chavez DO Attending Provider [phone] Jethro Chavez Attending Unavailable Jethro Chavez Admitting Unavailable Lisa Guardado APRN Attending Provider Ra Potter DO Primary Care Provider Ra Potter DO Attending Provider Medications Current Medications MedicationDrug Class(es)DatesSig (Normalized)Sig (Original)azithromycin 250 mg oral tablet (1 source)Macrolide AntimicrobialStart: 87-14-9603Gqpzfbddw 250 MG 2 tablet on the first day, then 1 tablet daily for 4 days Orally Once a day for 5 day(s) Jan, Activebenzonatate 100 mg oral capsule (1 source)Non-narcotic AntitussiveStart: 05-91-7999ngxi 1 capsule by mouth three times daily as neededTessalon Perles 100 MG 1 capsule as needed Orally Three times a day for 10 day(s) 1 capsule p.o. 3 times daily as needed for Jan, Activefluticasone propionate 0.05 mg/actuat metered dose nasal spray (1 source)CorticosteroidStart: 39-47-4774kffo 2 spray(s) nasal route once daily Fluticasone Propionate 50 MCG/ACT 2 sprays Nasally Once a day for 14 day(s) Jan, ActiveLoratadine (1 source)Claritin Activemupirocin 0.02 mg/mg topical ointment (13 sources)RNA Synthetase Inhibitor AntibacterialStart: 63-11-5647Javkuqdpx 2 % ointment Active 1 APPLIC TOPICAL Twice daily August 28, 2024 12:00am Complies withdrug therapyStart: 09-19-2023 End: 54-94-8542Jsadkiqlx 2 % ointment Discontinued 1 APPLIC TOPICAL Twice daily 27 11October 18, 2023 12:00amJuly 2024 11:48amNo Name (No Known Home Meds) (1 source)Start: 64-20-7818Fw Name (No Known Home Meds) Active August 28, 2024 12:00am Completed/Discontinued Medications MedicationDrug Class(es)DatesSig (Normalized)Sig (Original)Childrens Vitamins 60 MG (1 source)take 1 tablet by mouth once dailyChildrens Vitamins 60 MG 1 tablet Orally Once a day for 30 day(s) Not-Takingdoxycycline hyclate 100 mg oral capsule (13 sources)Tetracycline-class DrugStart: 09-19-2023 End: 34-20-4282mzsf 1 capsule by mouth twice dailyDoxycycline Hyclate 100 mg capsule Discontinued 100 MG PO Twice daily 14 August 28, 2024 12:00am S eptember 2024 2:23pmFluticasone Furoate 27.5 MCG/SPRAY (1 source)Start: 28-96-5034uyor 2 puff(s) nasal route once dailyFluticasone Furoate 27.5 MCG/SPRAY 2 puffs Nasally Once a day Oct, Not-Taking methylPREDNISolone 4 mg oral tablet (6 sources)CorticosteroidStart: 09-06-2023 End: 05-49-0185yesz 1 tablet by mouth onceMethylprednisolone (Medrol (Jason)) 4 mg tablets,dose pack Discontinued 0 PO per package directions September 06, 2023 12:00am September 11, 2023 9:41am PO PER PKG DIRpredniSONE 20 mg oral tablet (2 sources)Start: 08-28-2024 End: 72-46-0191qsiq 2 tablets by mouth once dailyPrednisone 20 mg tablet Discontinued 40 MG PO Daily 10 August 28, 2024 12:00am November 04, 2024 2:23pmStart: 86-87-0471djor 1 tablet by mouth every twelve hourspredniSONE 20 MG 1 tablet Orally bid for 5 day(s) Jan, Activetriamcinolone acetonide 1 mg/ml topical cream (6 sources)CorticosteroidStart: 09-06-2023 End: 53-08-7444Kkheulynkmqyq Acetonide 0.1 % cream Discontinued 1 APPLIC TOPICAL Twice daily 15 7 September 06, 2023 12:00am October 18, 2023 8:42am Apply a thin layer to affected areas twice daily for 7 days Problems Active Problems Problem ClassificationProblemDateDocumented DateEpisodic/ChronicAbdominal pain (1 source)Pain in female pelvis; Translations: [Pelvic and perineal pain] 51-27-5235VwdpzephAbsfthnkh infection; unspecified site (6 sources)Staphylococcal infectious disease; Translations: [Unspecified staphylococcus as the cause of diseases classified elsewhere]38-31-1167Rpiollva Conditions associated with dizziness or vertigo (5 sources)Labyrinthitis, unspecified ear; Translations: [Vertigo]Onset: 441826-71-6053DjmvahrkV Codes: Natural/environment (9 sources)Insect bite - wound; Translations: [Bitten or stung by nonvenomous insect and other nonvenomous arthropods, initial encounter]66-81-6768Rhbfpzrq Menstrual disorders (16 sources)Menorrhagia; Translations: [Excessive and frequent menstruation with regular cycle]Onset: 608540-68-0003JiehdzfSzlfa female genital disorders (1 source)Abnormal uterine bleeding; Translations: [Abnormal uterine and vaginal bleeding, unspecified]76-77-3479LhxacckFsrnc screening for suspected conditions (not mental disorders or infectious disease) (12 sources)Patient encounter status; Translations: [Encounter for screening for malignant neoplasm of colon]75-54-7407CgegsnosXpraf skin disorders (5 sources)Folliculitis; Translations: [Follicular disorder, unspecified] 80-69-0908LhxndwcvLnbws skin disorders (1 source)Follicular disorder, unspecified; Translations: [Other specified diseases of hair and hair follicles]70-82-1341GzofdvkrGugce upper respiratory disease (2 sources)Allergic rhinitis; Translations: [Allergic rhinitis, unspecified] 22-97-1145UpyctbsQckpyibmh or history of mental health and substance abuse (1 source)Personal history of nicotine dependence; Translations: [PERSONAL HISTORY OF NICOTINE DEPEND]Onset: 44-42-3278CfzxuwioIzrnhwx (4 sources)Syncope and collapse; Translations: [SYNCOPE AND COLLAPSE]Onset: 51-23-8954Sjwelied Past or Other Problems Problem ClassificationProblemDateDocumented DateEpisodic/ChronicAllergic reactions (3 sources)Inflammatory dermatosis; Translations: [Dermatitis, unspecified] Onset: 013896-09-2675YsgxtjviWjzctxk obstructive pulmonary disease and bronchiectasis (1 source)Bronchitis, not specified as acute or chronicOnset: 01-16-2021 Resolved: 70-53-2901OvorgcohYkkronyowpiop symptoms and ill-defined conditions (3 sources)Increased frequency of urination; Translations: [Frequency of micturition]Onset: 094486-37-8248ImvxbmjoPzgagwexywkwt and screening for infectious disease (1 source)Contact with and (suspected) exposure to other viral communicable diseasesOnset: 01-16-2021 Resolved: 32-06-1413MudtbumvUngkngg and fatigue (3 sources)Fatigue; Translations: [Other fatigue]Onset: EpisodicOther connective tissue disease (3 sources)Prepatellar bursitis of right knee; Translations: [Prepatellar bursitis, right knee]Onset: 179022-40-4876YfyyjeqkEvrbu skin disorders (7 sources)Hirsutism; Translations: [Hirsutism]Onset: EpisodicOther upper respiratory infections (1 source)Acute sinusitis, unspecifiedOnset: 01-16-2021 Resolved: 69-33-2774Nqiadedr Results Test NameValueInterpretationReference RangeFacilityECG 12-LEADon 21-05-5067M[address] [address] Electrocardiograph Report Signed Patient: DELVIS SALCEDO MR#: [id number] : 1980 Acct:[id number] Age/Sex: 44 / F ADM Date: 03/06/24 Loc: PST Attending Dr: Jethro Chavez D.O. Ordering Physician: Jethro Chavez D.O. Date of Service: 03/06/24 Procedure(s): ECG 12 lead Accession Number(s): [id number] cc: [facility] Test Date: 2024-03-06 Pat Name: DELVIS SALCEDO Department: Room: - Gender: Female Instructional Design Specialist: : 1980 Requested By: JETHRO CHAVEZ Order Number: [id number] Reading MD: RA POTTER Measurements Intervals Stanton Rate: 67 P: 54 NJ: 149 QRS: 19 QRSD: 81 T: 38 QT: 386 QTc: 410 Interpretive Statements SINUS RHYTHM Compared to ECG 06/14/2017 09:38:12 No significant changes Electronically Signed On 03-07-2024 6:56:18 EST by RA POTTER Dictated By: Ra Potter D.O. Signed By: 03/07/24 0656 DD/ 1026 TD/TT: Inspector Bicycle:TBHRadiology, Radiologist, MD - 03/07/2024 [place] [address] Electrocardiograph Report Signed Patient: DELVIS SALCEDO MR#: [id number] : 1980 Acct:[id number] Age/Sex: 44 / F ADM Date: 03/06/24 Loc: PST Attending Dr: Jethro Chavez D.O. Ordering Physician: Jethro Chavez D.O. 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 Signed By: 03/07/24 0656 DD/ 1026 TD/TT: Inspector Bicycle: CARLOS Merritt 12-LEADOrdered By: Radiologist Radiology on 84-52-4758Q[facility] Work Phone: ECG 12-LEADon 34-07-0100Ciiqkhrit Study observation (narrative)CARLOS HealthcareIGP,APTIMA HPV,AGE GDLNon 40-46-9895VHB GDLN ACOG TESTINGNote.[facility] HealthcareComment on above:TESTS RESULT FLAG UNITS REF RANGE LAB Clinician Provided Cytology Information Source.............Cervix;Endocervix No. of containers..01 ThinPrep Vial Age Algo ACOG Greer... 28- FLAG LEGEND: L-Low Normal,H-High Normal,LL-Alert Low,HH-Alert High <-Panic Low,>-Panic High,A-Abnormal,AA-Critical Abnormal Performed at: 01 =G [facility] [address] Felipa White MD, HPV APTIMANegativeNegativePARK CITY HOS[facility] HealthcareComment on above:This nucleic acid amplification test detects fourteen high- risk HPV types (16,18,31,33,35,39,45,51,52,56,58,59,66,68) without differentiation. Performed at: =G - [facility], [place] [id number] Cattle Rancher: Felipa White MD, Phone: [phone] Performed at: - [address] [id number] Cattle Rancher: Felipa White MD, Phone: [phone] IGP, APTIMA HPV, RFX 16/18,45Note.[facility] HealthcareComment on above:TESTS RESULT FLAG UNITS REF RANGE LAB DIAGNOSIS: 02 NEGATIVE FOR INTRAEPITHELIAL LESION OR MALIGNANCY. Specimen adequacy: 02 Satisfactory for evaluation. Endocervical and/or squamous metaplastic cells (endocervical component) are present. Performed by: Norma Paredes, High School History Teacher (ASCP) . 02 Note: Note 02 The [...] <-Panic Low,>-Panic High,A-Abnormal,AA-Critical Abnormal Performed at: [address] [address] Felipa White MD, BRUSH-SPATULA CERVIX ENDOCERVIX CLINSSM De[facility] Health CenterEndometrial biopsyon 68-88-1514FzhujAlejandra Oconnor LPN 02/15/2024 10:30 AM Endometrial biopsy [...] Specimen collected: specimen collected and sent to pathologyAt[facility] Health [facility] ( test) (U)on 39-40-8982Usaxfaepgrzvuq and review of laboratory resultsNormPhysicians Care Surgical Hospital Test, UrNegativeNegativeDuke University HospitalLon 02-15-2024L Specimen: [id number] Received: 02/16/24 Status: NGHIA Aden Num: [id number] Spec Type: Surgical Subm Dr: Jethro Chavez Tissues: A Endometrium - Biopsy (EMBX) Procedures: HE/2, Gross/Micro L4 Age/ Patient Sex Location Account Attending Physician Delvis Salcedo 44/F LABELL [id number] Jethro Chavez SPEC NUM: [id number] RECD: 02/16/24 STATUS: NGHIA ADEN NUM: [id number] RIO: 02/15/24- SUBM DR: Jethro Chavez ENTERED: 02/16/24 [facility] DR: Eli,Lab SPEC TYPE: Surgical DEPT: GIGI DOBBINS ENTERED BY: [id number] RECV BY: [id number] ORDERED: HE/2, Gross/Micro L4 ORDERED: HE/2, Gross/Micro [...] submitted in a single cassette. (1, corrina, BS42-13) J Microscopic Description Microscopic examinations are performed supporting the above interpretation Specimen: BS25 Received: 02/16/24 Status: NGHIA Keiko Num: [id number] Spec Type: Surgical Subm Dr: Jethro Chavez Tissues: A Endometrium - Biopsy (EMBX) Procedures: /2, Gross/Micro L4 Patient: Delvis Salcedo [id number] (Continued) Specimen: BS25 Received: 02/16/24 (Continued) Signed (signature on file) Leigh Taylor MD 02/19/24 1608 Specimen: BS Received: 02/16/24 Status: NGHIA Aden Num: [id number] Spec Type: Surgical Subm Dr: Jethro Nugent: A Endometrium - Biopsy (EMBX) Procedures: HE/Jose Manuel, Bharat/Tate L4 Patient: Delvis Salcedo [id number] (Continued) Specimen: BS25 Received: 02/16/24 (Continued) CPT Codes 68102 Specimen: BS25 Received: 02/16/24 Status: NGHIA Aden Num: [id number] Spec Type: Surgical Subm Dr: Jethro Kathy Tissues: A Endometrium - Biopsy (EMBX) Procedures: HE/2, Gross/Micro L4 Patient: Delvis Salcedo [id number] (Continued) Signed (signature on file) Isak-Yasir Taylor MD 02/19/[address] [place] [address] Physician GroupCOVID Quick Testingon 12-78-9866JpstloBayfront Health St[facility] [employer] Other CARDIAC KARLI ADMITon 65-66-6488MFDD2.30 ng/mLNormal <=2.37The [facility] CenterComment on above:Performed By: #### JIM FONTANA ####[facility] Dsyagfrvdz[address] KarenCreatine kinase (CK)84 U/IUbnvyw22-296Eww [facility] CenterComment on above:Performed By: #### JIM FONTANA ####[facility] Smafxcbxro[address] JudeenINReyna Coag RelTime (Bld)SEE BELOWNormal The [facility] CenterComment on above:Result Comment: <0.034 ng/ml NEGATIVE 0.034-0.119 INDETERMINATE 0.120 AMI CUT OFFPerformed By: #### JIM FONTANA ####[facility] [address] [place] [address] JzhjyYSC48.1 ng/mLNormal<=61.5The [facility] CenterComment on above:Performed By: #### JIM FONTANA ####[facility] E[address] [place] [address] KarenTROP<0.012Normal<=0.034The [facility] CenterComment on above:Performed By: #### JIM FONTANA ####[facility] Acfhruunis[address] [place] [address] KarenCBC W MANUAL DIFF on 02-23-8006HRBD #0.2 103/ulNormal0.0-0.3The [facility] CenterComment on above: Performed By: #### JOHANNY ####[facility] Osoiuqct[address] [place] [address] KarenBAND %3 %Normal0-5The [facility] Comment on above:Performed By: #### JOHANNY ####[facility] Edresemzrw[address] [place] [address] KarenBASOM %0.0 %Critically low 0.2-2.0The [facility] Medical CenterComment on above:Performed By: #### JOHANNY ####[facility] Fyxrouutsi[address] [place] [address] KarenBasophils Auto #/vol (Bld)0.00 103/ulNormal0.00-0.10The [facility] Comment on above:Performed By: #### JOHANNY ####[facility] Hztvibkday[address] [place] [address] KarenBLAST #NormalThe [facility] CenterComment on above:Performed By: #### JOHANNY ####[facility] [address]uv[address] [place] [address] KarenBLAST %NormalThe [facility] CenterComment on above:Performed By: #### JOHANNY ####[facility] Ldoavwemxz[address] [place] [address] Jane Eosinophils0.00 103/ulNormal0.00-0.70The [facility] on above: Performed By: #### CBCDALLAS ####[facility] Xppbndjvsl[address] [place], [place] [address]Gerken KarenEosinophils/100 leukocytes0.0 %Critically low0.9-7.0The [facility] on above:Performed By: #### CBCDALLAS ####[facility] Cpqmgsttum[address] [place], [place] [address]Gerken KarenErythrocyte distribution width Auto Ratio (RBC)12.8 %Fsnbqy37.0-15.0The [facility] CenterComment on above:Performed By: #### CBCDALLAS ####[facility] Dmbprviztn[address] [place], [place] [address]Gerken Jane Erythrocytes (RBC)4.68 106/ulNormal4.20-5.40The [facility] Medical CenterCommclaren caro region on above:Performed By: #### JOHANNY ####[facility] Tjbaxcfexn[address] [place], [place] [address]Gerken KarenErythrocytes (RBC)NormalThe [facility] on above:Performed By: #### CBCDALLAS ####[facility] Qfonggsvbb[address] [place], [place] [address]Gerken KarenHematocrit (HCT) 43.0 %Nhbtsw16.0-48.0The [facility] on above:Performed By: #### JOHANNY ####[facility] Zicpynrpsc[address] [place], [place] [address]Gerken KarenHemoglobin mass conc (Bld)14.8 g/uYUpwlsz57.0-16.0The [facility] on above:Performed By: #### CBCDALLAS ####[facility] Ivbijeiwbn[address] [place], [place] [address]Gerken KarenLymphocytes0.66 103/ulCritically low1.20-3.80The [facility] Medical CenterCommclaren caro region on above:Performed By: #### JOHANNY ####[facility] [address]engxizmu[address] [place], [place] [address]Gerken KarenLymphocytesNormalThe [facility] CenterComment on above: Performed By: #### JOHANNY ####[facility] [address] [place] [address]Gerken KarenLymphocytes/100 kowzsyjqdp59.0 %Critically low20.5-60.0The [facility] CenterComment on above:Performed By: #### JOHANNY ####[facility] Dgecztxdty[address] [place] [address]Gerken KarenLymphocytes/100 leukocytesNormalThe [facility] CenterComment on above: Performed By: #### JOHANNY ####[facility] Swhjelyfit9[address] LduenJRT15.6 rdGuajgc98.7-34.0The [facility] CenterComment on above:Performed By: #### JOHANNY ####[facility] [address]gdeort[address] [place] [address] KarenMCHC mass conc (RBC)34.4 g/sCOcrgdt32.9-35.2The [facility] CenterComment on above:Performed By: #### JOHANNY ####[facility] F[address] [place] [address] VljoyZVE05.9 jNBpxopp34.0-99.0The [facility] CenterComment on above:Performed By: #### JOHANNY ####[facility] Axbmacwtob[address] [place] [address] KarenMETAMYELOCYTE #NormalThe [facility] Comment on above:Performed By: ###Virgen [place] ####[facility] Amabqtfrao[address] KarenMETAMYELOCYTE %NormalThe [facility] CenterComment on above:Performed By: #### JOHANNY ####[facility] Jpklrydfru[address] [place] [address] KarenMONOM# 0.40 103/ulNormal0.30-0.80The [facility] CenterComment on above:Performed By: #### JOHANNY ####[facility] [address]im[address] [place] [address] KarenMONOM%6.0 %Normal1.7-12.0The [facility] CenterComment on above: Performed By: #### JOHANNY ####[facility] Zfntftifdx[address] [place], [place] [address]Zvrxhd KarenMYELOCYTE #NormalThe [facility] Comment on above:Performed By: #### JOHANNY ####[facility] Ig[address]zpiuoge[address] [place], [place] [address]Emneci KarenMYELOCYTE %NormalThe [facility] CenterComment on above:Performed By: #### JOHANNY ####[facility] [address] [place] [address] KarenPlatelet mean volume (PMV)11.3 fLNormal9.5-13.5The [facility] CenterComment on above:Performed By: #### JOHANNY ####[facility] [address] [place] [address] OtezcOqizfento232 103/ulCritically nex445-718Qvd [facility] CenterComment on above:Performed By: #### JOHANNY ####[facility] Vbulaajbkh[address] [place], [place] [address]Gerken KarenSEG #5.35 103/ul Normal1.40-6.50The [facility] Hospitalment on above:Performed By: #### JOHANNY ####[facility] [address]lrx[address] [place] [address] KarenSegmented Neutrophils/100 czqctyhtoj62.0 %Critically high43.0-75.0The [facility] CenterComment on above:Performed By: #### JOHANNY ####[facility] Uqosuponly[address] [place] [address] KarenWBC (Leukocytes)6.6 103/ulNormal4.0-11.0The [facility] CenterComment on above: Performed By: #### JOHANNY ####[facility] [address] [place] [address] KarenWBC (Leukocytes)Normal4.0-11.0The [facility] CenterComment on above:Performed By: #### JOHANNY ####[facility] Rgcnhdctol[address] [place], [place] [address]Mtoknc KarenER URINE PROFILE on 78-28-8538Tyqpkpkzb (total)NegativeNormalNEGATIVEThe [facility] CenterComment on above:Performed By: #### MIRTA CHAMPAGNE ####[facility] [address]zxcpayle[address] [place], [place]Gerken KarenBLOODTRACE-INTACTNormalNEGATIVE The [facility] CenterComment on above:Performed By: #### MIRTA CHAMPAGNE ####[facility] Igizrkkkhr[address] [place], [place]Gerken KarenERUAHDA micrscopic examination will be performed if indicated.NormalThe [facility] CenterComment on above:Performed By: #### MIRTA CHAMPAGNE ####[facility] [address] [place] [id number] KarenGlucose mass concNegativeNormalNEGATIVEThe [facility] CenterComment on above:Performed By: #### MIRTA CHAMPAGNE ####[facility] [address]uscftl[address] [place] [address]Gerken KarenpH of blood6.0 [pH]Normal5-9The [facility] CenterCommclaren caro region on above:Performed By: #### MIRTA CHAMPAGNE ####[facility] Inxoobxxfk[address] [place], [place]Gerken KarenProteinNegative NormalThe [facility] CenterComment on above:Performed By: #### MIRTA CHAMPAGNE ####[facility] Ugbsjkqmbc[address] [place], [place] [address]Gerken KarenSPEC GRAVITY1.800Sjbafu6.005-<=1.025The [facility] Hospitalment on above: Performed By: #### MIRTA CHAMPAGNE ####[facility] [address]mykon[address] [place] [address]Gerken KarenUR MICRO INDINDICATEDNormalThe [facility] CenterComment on above:Performed By: #### MIRTA CHAMPAGNE ####[facility] Wxxdklsvjy[address] [place], [place] [address]Gerken KarenUrine, clarity CLEARNormalThe [facility] HospitalComment on above:Performed By: #### MIRTA CHAMPAGNE ####[facility] Sszx[address]oj[address] [place] [address]Gerken KarenUrine, colorYELLOWNormalYELLOWPeoples Hospital HospitalComment on above: Performed By: #### MIRTA CHAMPAGNE ####[facility] Nsvvsfszba[address] KarenUrine, ketones presenceNegativeNormal NEGATIVEPeoples Hospital HospitalComment on above:Performed By: #### MIRTA CHAMPAGNE ####[facility] Sbebuvsxfk[address] KarenUrine, nitrite presenceNegativeNormalNEGATIVEPeoples Hospital HospitalComment on above:Performed By: #### MIRTA CHAMPAGNE ####[facility] Medkoctrik[address] KarenUrine, urobilinogen0.2 {Stephanie'U}/dLNormalThAdena Fayette Medical Center HospitalComment on above:Performed By: #### MIRTA CHAMPAGNE ####[facility] [address] [place] [address] KarenWBC (Leukocytes)NegativeNormalNEGATIVEPeoples Hospital Hospital Comment on above:Performed By: #### MIRTA CHAMPAGNE ####[facility] Cirfgljoyi[address] KarenPREG HCG QUALon 72-96-5448DKMHXEGZW, QUALNegativeNormalNEGATIVEPeoples Hospital HospitalComment on above:Performed By: #### PREG ####[facility] [address] [place] [address] KarenPROF CHEM 8 (BAS METB)on 19-62-8740Sufqg gap12.5 mmol/LNormalPeoples Hospital HospitalComment on above:Performed By: #### BMP, CMADM ####[facility] Dhvgehrwsw3560 [address] KarenBUN/Creatinine Ratio16.1 mg/mgNormalThe [facility] Comment on above:Performed By: #### ADDI, CMAJESSIE ####[facility] J[address] [place] [id number] KarenCalcium9.6 mg/dL Normal8.4-10.2The [facility] CenterComment on above:Performed By: #### ADDI, CMADM ####[facility] Rpdjfrmddr2265 [place], [place] [address]Gerken EdsrdCrfmghjj460 mmol/FYpemua68-404Crs [facility] CenterComment on above:Performed By: #### ADDI, CMAJESSIE ####[facility] Fucayz[address] [place], [place] [address]Gerken ZqwcaKA022.0 mmol/DHiqfgy87.0-30.0The [facility] CenterComment on above:Performed By: #### ADDI, CMAJESSIE ####[facility] Fivixlan[address] [place], [place] [address]Gerken Jane Creatinine0.74 mg/dLNormal0.52-1.04The [facility] CenterComment on above: Performed By: #### ADDI, CMADM ####[facility] Y[address] [place], [place] [address]ken KareneGFR (non-black)mL/min/{1.73_m2}Normal>=60 The [facility] CenterComment on above:Performed By: #### ADDI, CMADM ####[facility] [address] [place], [place] [address]Gerken KarenGlucose mass conc94 mg/bCZvuhlf57-231Xir [facility] CenterComment on above:Performed By: #### ADDI, CMADM ####[facility] Gpeqtssquv[address] [place], [place] [address]ken KarenPotassium molar conc4.2 mmol/LNormal 3.4-5.0The [facility] CenterComment on above:Performed By: #### ADDI, CMAJESSIE ####[facility] Talsqfouej[address] [place], [place] [address]ken ZlflxMjrgnq767 mmol/PDnnvha793-928Uib [facility] CenterComment on above: Performed By: #### ADDI, CMADM ####[facility] Bhpwqrqybs68[address] [place] [address]Gerken KarenUrea vsdunptb40.0 mg/dLNormal7.0-17.0The [facility] CenterComment on above:Performed By: #### ADDI, CMADM ####[facility] Rbowpjlxik24[address] [place], [place] [address]Brjobf KarenURINE MICROSCOPIC ONLYon 11-99-0154HGQYITGT SEENNormalNONE SEENChildren'S Hospital Of [facility] Comment on above:Performed By: #### IHSAN UMICRO ####[facility] Outpskgscb5[address] [place], [place]Gerken KarenCULTURENOT INDICATEDProMedica Bay Park HospitalComment on above:Performed By: #### IHSAN UMICRO ####[facility] Anxjqyizxy[address] [place] [address]Gerken KarenErythrocytes (RBC)1-6Ttflxg9-0Wrh [facility] CenterComment on above:Performed By: #### IHSAN UMICRO ####[facility] Ujdmkkfvzl8[address] [place], [place]Gerken KarenMUCOUSMODERATENormalNONE SEENChildren'S Hospital Of ColumbusComment on above:Performed By: #### IHSAN UMICRO ####[facility] Mobxetbwzf[address] [place] [address]Gerken KarenUrine, bacteria in sedimentNONE SEENNormalNONE SEENChildren'S Hospital Of ColumbusComment on above:Performed By: #### IHSAN UMICRO ####[facility] Euvcayfbeb2865 [place], [place]Gerken KarenUrine, crystals in sedimentNONE SEEN NormalNONE SEENChildren'S Hospital Of ColumbusComment on above:Performed By: #### IHSAN UMICRO ####[facility] Placlkmqnu549[address] [place] [address]Gerken KarenUrine, epithelial cells in sedimentFEGlenbeigh HospitalComment on above:Performed By: #### ERUR, UMICRO ####[facility] Ygvuquptfy77[address] [place], [place]Aurelio LaraWBC (Leukocytes) NONE SEENNormalNONE SEENChildren'S Hospital Of ColumbusComment on above:Performed By: #### ERUR, UMICRO ####[facility] Ktqerxkrhw8942 [place], [place]Aurelio Lara Vital Signs Date TimeVital SignValuePerforming KialxptllLtvyyrbo31-92-7812 14:27-0400Body etrnoy061.1 cmBenjamin Ball DO Work Phone: [phone] [place], [place] 6532409-29-2025 14:27-0400 Body mass index (BMI) [Ratio]24.3 kg/t7Gmxihdnx Ball DO Work Phone: [phone] [place], [place] 6532409-29-2025 14:27-0400 Body .28 kgBenjamin Ball DO Work Phone: [phone] [place], [place] 6532409-29-2025 14:27-0400 Diastolic blood mm[Hg]Ra Ball DO Work Phone: [phone])[address] [place], [place] 6532409-29-2025 14:27-0400 Heart rate88 /minBenjamin Ball DO Work Phone: [phone] [place], [place] 6532409-29-2025 14:27-0400 Respiratory rate12 /minBenjamin Ball DO Work Phone: [phone] [place], [place] 6532409-29-2025 14:27-0400 Systolic blood fojzpwzs954 mm[Hg]Ra Ball DO Work Phone: [phone] [place], [place] 6532407-23-2025 11:49-0400 Body cjvulc608.1 cmBenjamin Ball DO Work Phone: [phone] [place], [place] 6532407-23-2025 11:49-0400 Body mass index (BMI) [Ratio]23.9 kg/y0Nrupcnls Ball DO Work Phone: [phone] [place], [place] 6532407-23-2025 11:49-0400 Body jwwusqdlorn84.6 [degF]Ra Ball DO Work Phone: [phone] [place], [place] 6532407-23-2025 11:49-0400 Body .31 kgBenjamin Ball DO Work Phone: [phone] [place], [place] 6532407-23-2025 11:49-0400 Diastolic blood ydlctdml08 mm[Hg]Ra Ball DO Work Phone: 1([phone])[address] [place], [place] 6532407-23-2025 11:49-0400 Heart rate78 /minBenjamin Ball DO Work Phone: [phone] [place], [place] 6532407-23-2025 11:49-0400 Respiratory rate14 /minBenjamin Ball DO Work Phone: [phone] [place], [place] 6532407-23-2025 11:49-0400 SaO2% (BldA) [Mass fraction]99 %Ra Ball DO Work Phone: 1([phone] [place], [place] 6532407-23-2025 11:49-0400 Systolic blood cufeeate209 mm[Hg]Ra Ball DO Work Phone: [phone] [place], [place] [address]28501-21-2025 10:48-0500 Body mass index (BMI) [Ratio]24.3 kg/s3Lkkrr Kathy DO Work Phone: [facility] HospitalFsacblsjzc10-96-6283 10:48-0500Body mslutp66.22 kgCorey Kathy DO Work Phone: 1(763)729-[address] [place], [place] [address]Nweaxrbspr48-26-8528 10:48-0500Diastolic blood vjagpytl08 mm[Hg]Jethro Kathy DO Work Phone: [phone]-[facility] HospitalJfearostpb95-35-2383 10:48-0500Systolic blood vjyfnrzs916 mm[Hg]Jethro Kathy DO Work Phone: [phone]-[facility] HospitalEkzgktxide52-59-9695 09:44-0500Body mass index (BMI) [Ratio]25.13 kg/m1Hppdi Kathy DO Work Phone: [facility] HospitalEgqmfrvbrf88-69-2433 09:44-0500Body spewvm22.49 kgCorey Kathy DO Work Phone: [facility] HospitalVfegpmmdqp22-15-1684 09:44-0500Diastolic blood clrelorz89 mm[Hg]Jethro Kathy DO Work Phone: [phone]-[facility] HospitalEurqvccspr17-14-3932 09:44-0500Systolic blood rmzqvofz928 mm[Hg]Jethro Kathy DO Work Phone: 1([phone] [place], [place] [address]Ktriauygxm32-61-2486 13:53-0500Body epxgos666.1 cmCorey Kathy DO Work Phone: [phone] [place], [place] [address]Vfwacmzvts61-68-4459 13:53-0500Body mass index (BMI) [Ratio]24.1 kg/y7Tmtno Kathy DO Work Phone: 1([phone] [place], [place] [address]Lstrsyhbhq52-58-5317 13:53-0500Body rzobri66.68 kgCorey Kathy DO Work Phone: [phone] [place], [place] [address]Chtxqdydni82-85-1577 13:53-0500Diastolic blood irpjlycp88 mm[Hg]Jethro Kathy DO Work Phone: 1(045)168-[address] [place], [place] [address]Ofmzqmvvhe37-45-8345 13:53-0500Systolic blood cfvdnbpy815 mm[Hg]Jethro Kathy DO Work Phone: [phone]-[facility] HospitalRwdqqebwfh69-22-1143 08:42-0400Body hxwgdo014.1 cm[facility]09-[facility]-2024 08:42-0400Body mass index (BMI) [Ratio]24.7 kg/r1ZjzecwmkjJoint [facility]09-11-2024 08:42-0400Body tjcuwi19.3 kgJoint [facility]09-11-2024 08:42-0400Diastolic blood xbhskfef10 mm[Hg][facility]09-11-2024 08:42-0400 Heart rate74 /[facility]09-11-2024 08:42-0400 Respiratory rate12 /[facility]09-11-2024 08:42-0400 Systolic blood purgqppx132 mm[Hg][facility]08-13-2024 08:58-0400Body kfckui851.1 cm[facility]08-13-2024 08:58-0400Body mass index (BMI) [Ratio]23.7 kg/t5PghwegtbfJoint [facility] District [facility]08-13-2024 08:58-0400Body .63 kg[facility] 09-19-2023 08:58-0400Diastolic blood gujrqlwt52 mm[Hg][facility]08-13-2024 08:58-0400Heart rate79 /[facility] 09-19-2023 08:58-0400Respiratory rate12 /[facility] 09-19-2023 08:58-0400Systolic blood nenxflse803 mm[Hg][facility]08-05-2024 09:40-0400Body .1 cm[facility] 09-11-2023 09:40-0400Body mass index (BMI) [Ratio]23.3 kg/r0SfbdssosqJoint [facility] District [facility] Hospital08-05-2024 09:40-0400Body ulcmutdyrqe29.4 [degF][facility]08-05-2024 09:40-0400Body bezpqh57.5 [facility]08-05-2024 09:40-0400Heart rate75 /[facility] 09-11-2023 09:40-0400Respiratory rate18 /[facility] 09-11-2023 09:40-4336GgW4% (BldA) [Mass fraction]99 %[facility]07-31-2024 10:56-0400Body .1 cm[facility] 09-06-2023 10:56-0400Body mass index (BMI) [Ratio]23.3 kg/c9EgwjykngyJoint Township District Memorial Hospital07-31-2024 10:56-0400Body ihrccxioorw12.4 [degF][facility]07-31-2024 10:56-0400Body .5 kgJoint [facility]07-31-2024 10:56-0400Diastolic blood vblajonb56 mm[Hg][facility]07-31-2024 10:56-0400Heart rate77 /[facility]07-31-2024 10:56-0400Respiratory rate18 /[facility]07-31-2024 10:56-2821TxW2% (BldA) [Mass fraction]98 %[facility]07-31-2024 10:56-0400Systolic blood shwsyuww522 mm[Hg][facility]12-11-2021 14:00-0500Body .1 cmPamela Soniya Other [employer] Other 12-11-2021 14:00-0500Body mass index (BMI) [Ratio]20.8 kg/v2GcasioKitty Byrnes Other [employer] Other 12-11-2021 14:00-0500Body wwizxdpkxeb54.1 [degF]Kitty Byrnes Other [employer] Other 12-11-2021 14:00-0500Body .7 kgKitty Byrnes Other [employer] Other 12-11-2021 14:00-0500Respiratory rate18 /Shawna Byrnes Other [employer] Other 12-11-2021 14:00-7340PaB2% (BldA) [Mass fraction]99 % Kitty Geemond Other [employer] Other Encounters Encounter DateEncounter TypeCare ProviderFacilityStart: 11-04-2024 End: 84-88-3998lzlarvzyenXwreaeqt Ball DO Work Phone: [place] [address] Work Phone: Start: 11-04-2024 End: 57-72-6589Jpwdxfn encounter procedureBefernieemerson Potter DO-[facility] Work Phone: Start: 11-04-2024 End: 00-80-4532Ctqoadd encounter statusBeginger Potter [facility]: 08-28-2024 End: 80-54-2215erkrubshllFllewiwf Ball DO Work Phone: [facility] Work Phone: Start: 08-28-2024 End: 00-35-5348Alsemrj encounter procedureKirillsonny Hyman JACK [employer]PO[employer] T[facility]ER-[facility] Work Phone: Start: 03-06-2024 End: 57-33-2127Pmbobzsjy Result EncounterCorey Kathy DO Work Phone: noms External Department UnsolicitedStart: 03-06-2024 End: 62-68-8916Nrvzbwrmt Result EncounterCorey Kathy DO Work Phone: noms External Department UnsolicitedStart: 02-27-2024 End: 23-68-6933Ymcbzy flowsheetCorey Kathy DO Work Phone: [facility] BCP OBStart: 02-27-2024 End: 44-13-5986Bgxotc flowsheetCorey Kathy DO Work Phone: NOFB BCP OBStart: 02-27-2024 End: 91-43-6040Msryifdxm Result EncounterCorey Kathy DO Work Phone: [facility] External Department UnsolicitedStart: 02-27-2024 End: 11-18-2905Uxyqsgi encounter procedureCorey Kathy DO Work Phone: noms HealthcareStart: 02-27-2024 End: 37-12-9947Ggbkamcl preventive med est patient 40-64yrsCorey Kathy DO Work Phone: [facility] BCP OBComment on above:Well woman exam with routine gynecological exam; Breast cancer screening by mammogram; Pre-op examination; Menorrhagia with regular cycle; Abnormal uterine bleeding; Pelvic pain in femaleStart: 02-27-2024 End: 44-75-8929Gyzwzxhyyyzll examination doneCorey Kathy DO Work Phone: NONM HealthcareStart: 02-15-2024 End: 42-66-0079Vexxyzv encounter procedureCorey Kathy DO Work Phone: noms BCP OBComment on above:Menorrhagia with regular cycleStart: 02-15-2024 End: 51-28-2422kelgtjxmspPldqo FaKe[facility] Work Phone: Start: 02-15-2024 End: 83-32-3882Tguvqvof ReferredCorey Kathy DO Work Phone: [facility] Spec [facility] HospStart: 12-13-2023 End: 04-35-4094Jtkorq flowsheetCorey Kathy DO Work Phone: noms BCP OBStart: 12-13-2023 End: 33-74-0496Qzglem flowsheetCorey Kathy DO Work Phone: [facility] BCP OBStart: 12-13-2023 End: 08-16-0829Anfuif outpatient visit 15 minutesCorey Kathy DO Work Phone: noms BCP OBComment on above:Irregular menstrual bleedingStart: 10-18-2023 End: 43-79-0726nwvdpcifoxOoeasdfhp [facility] Work Phone: Start: 10-18-2023 End: 71-36-4891Lierfyctw for general adult medical examination without abnormal findingsUniversity Hospitals Parma Medical Centertart: 10-18-2023 End: 25-33-8512Rdvjthe encounter procedureC[facility] Work Phone: Start: 69-52-0251Flqlkez encounter statusUniversity Hospitals Parma Medical Centertart: 09-19-2023 End: 63-05-2437bkqolnxpilZebizjjnzMer[facility] Health [facility] Work Phone: Start: 09-19-2023 End: 74-11-5757Pnctuyo encounter procedureC[facility] Work Phone: Start: 09-11-2023 End: 07-40-3331bmrlhtfuuvRscggocbgParma Community General Hospital Work Phone: Start: 09-11-2023 End: 48-13-7110Yrfehtu encounter procedureC[facility] Work Phone: Start: 09-06-2023 End: 18-55-2950xyazqbvzsnAoxhchhmyParma Community General Hospital Work Phone: Start: 09-06-2023 End: 13-54-9937Bwzjhew encounter procedureC[facility] Work Phone: Start: 01-16-2021(URG) Urgent Care VisitPamela Soniya [facility] Urgent Care ClydeStart: 01-16-2021 End: 65-96-8027xzxhdhvvvqAeuvps Soniya Other [place] [facility] Other Start: 06-14-2017 End: 50-96-2352WosfltdcmuTSZIQT [place] BRAUNFacility:H1 Procedures DateProcedureProcedure DetailPerforming ClinicianStart: 67-07-3112YDL 12-LEAD Jethro Kathy DO Work Phone: Start: 60-54-6842TXP,APTIMA HPV,AGE GDLNCorey Kathy DO Work Phone: Start: 19-22-9700SLVSHHGWAIP BIOPSYCorey Kathy DO Work Phone: Start: 66-19-3070Bxiya test visual color cmprsn methsCorey Kathy DO Work Phone: Plan of Treatment DateCare ActivityDetailAuthorStart: 02-27-2024 End: 31-77-4690FP Breast - bilateral ScreeningBilateral screening mammogram Imaging Routine Breast cancer screening by mammogram Expected: 02/27/2024 (Approximate), Expires: 04/26/2025[facility] Work Phone: comment on above:Expected: 02/27/2024 (Approximate), Expires: 04/26/2025Start: 02-27-2024 End: 38-03-1280Qqqhhet encounter procedureNOMS BCP OBComment on above:Arrived Start: 02-21-2024 End: 94-98-3787Fgpwofkyxoiv / ancillary services xkliydftok07/15/2025 11:00 AM EST Ancillary Procedure [facility] [address] [facility] [place] [place] [phone] [facility] BCP OBStart: 02-15-2024 End: 52-83-3951EV PelvisUS Pelvis w/ TV Imaging Routine Menorrhagia with regular cycle Expected: 02/15/2024, Expires: 02/14/2025[facility] Work Phone: comment on above:Expected: 02/15/2024, Expires: 02/14/2025Start: 01-17-2024 End: 38-82-9547Qhlyhwq encounter dhmagcedj92/11/2024 2:40 PM EST Consult [facility] [place] [facility] [place] [address] Jethro Chavez, DO [address] [place], [place] [id number] [facility] BCP OBStart: 01-08-2024 End: 80-86-5608Uuddmto encounter /02/2024 1:30 PM EST Procedure Visit [facility] [address] [place] [address] Jethro Chavez, DO [address] [place], [place] [address] [facility] BCP OBStart: 12-13-2023 End: 55-18-5672FQ for pregnancyUS PELVIS-TRANSVAG IF INDICATED Imaging Routine Irregular menstrual bleeding Expected: 12/13/2023 (Approximate), Expires: 12/12/2024[facility] Work Phone: comment on above:Expected: 12/13/2023 (Approximate), Expires: 12/12/2024omprehensive metabolic 1999 panel - Serum or PlasmaJoint Township District Memorial HospitalComprehensive metabolic 1999 panel - Serum or Plasma [facility] HospitalMG Breast - bilateral ScreeningJoint Township District Memorial HospitalMG Breast - bilateral ScreeningJoint Township District Memorial HospitalTHIN PREP TIS PAP AND HR HPV DNATHIN PREP TIS PAP AND HR HPV DNA Pathology and Cytology Routine Well woman exam with routine gynecological exam Ordered: 02/27/2024[facility] HospitalComment on above:Ordered: 02/27/2024[facility] Payers DatePayer CategoryPayerPolicy [id number] Cross Blue ShieldBCBS Member Subscriber Plan / Payer (Effective 2021-Present) Name: Delvis Salcedo Relation to Subscriber: Spouse Name: Elías Salcedo Date of : 1976 (Work) Address: [address] [place] [id number] Payer ID: Janon file Type: Not on file Address: [facility] [address] [place] [id number] [id number] Social History DateTypeDetailFacilitySex Assigned At BirthNorth [employer] Other Start: 09-06-2023 End: 78-60-8096Tkzgblb smoking status NHISNever smoked tobacco (finding) [facility] Centertart: 31-05-4525Uzj Assigned At [facility] CenterTobacc smoking status NHISTobacco smoking consumption unknownNOMS HealthcareStart: 86-81-6635Prttnq identityIdentifies as female gender (finding)[facility] HealthcareStart: 45-52-0186BftGkmxwr (finding) [facility] Clinical Notes 01-16-2021 to 08-28-2024 Note Date & ActkOdgeKnndgppr41-19-6242 Evaluation note* Diagnosis Onset Date Resolution Status Admit Date Folliculitis deletedJuly 2024 11:47amAllergic rhinitisacuteSeptember 2024 2:22pm Screening mammogram for breast canceracuteSeptember 2024 2:22pmWellness examinationacuteSeptember 2024 2:22pm [facility] Work Phone: 1(330) 902-420101-21-2025 History of Present illness Narrative* Katelynn Miles - 02/27/2024 10:30 AM EST Reason for Appointment: Patient ID: Delvis Salcedo is a 44 y.o. female who presents for Gynecologic Exam and Pre-op Visit Patient presents today for Pre Op/Annual appointment. Patient is scheduled to undergo Endometrial Ablation with Ramona on 03/15/[address] Chavez at [facility]. MEDICATIONS No current outpatient medications ALLERGIES No [...] reviewed, and patient is to proceed to [facility] OR. Follow Up: Patient is to follow up between 1-2 weeks post op to assess proper healing and recovery from procedure. Documented by Jane Samson LPN on behalf of: Jethro Chavez DO documented in this encounterLee's Summit HospitalUgvonweqyy40-65-2624 History of Present illness Narrative* Alejandra Oconnor LPN - 02/15/2024 9:30 AM ESTAssociated Order(s): Endometrial biopsy Pre-Procedure Diagnose(s): Menorrhagia with [...] nursing note reviewed. Exam conducted with a manager disaster recovery present. Vitals: Estimated body mass index is [...] of: Jethro Chavez DO documented in this encounterLee's Summit HospitalBcjolvjmjp86-32-8890 History of Present illness Narrative* Jane Samson LPN - 12/13/2023 1:40 PM EST Reason for Appointment: Patient ID: Delvis Salcedo [...] nursing note reviewed. Exam conducted with a manager disaster recovery present. Vitals: Estimated body mass index is 24.1 kg/m as calculated from the following: Height as of this encounter: 5' 5 . Weight as of this encounter: 144 lb 12.8 oz. BP: 120/70 Patient's last menstrual period was 12/06/2023. ASSESSMENT & PLAN ICD-10-CM 1. Irregular menstrual bleeding N92.6 Pt presents with abnormal heavy bleeding. Pt had labs obtained from Dr Potter in October. Discussedall options with pt in detail. Partner had vasectomy - discussed mirena IUD and or Ablation. Pt given ultrasound to have obtained Pt desires surgical management at this time. Pt to return for annual and return for preop embx. Documented by Jane Samson LPN on behalf of: Jethro Chavez DO documented in this encounterLee's Summit HospitalFrarucrvdk21-67-7643 Evaluation note* Encounter Date Diagnosis Assessment Notes Treatment Notes Treatment Clinical Notes Jan, Contact with and (vasques spected) exposure to other viral communicable diseases (ICD-10 - Z20.828) Jan,ronchitis (ICD-10 - J40) Drink plenty fluids, get plenty of rest. Take the Zithromax as prescribed until gone. Take the prednisone as prescribed until gone. Use the Tessalon Perles as prescribed as needed for cough. Use the Flonase inhaler as prescribed as needed for nasal congestion until your symptoms improve. Tylenol orMotrin for aches pains or fevers. Follow-up with your family physician if no improvement in 2 to 3 days. Jan,cute sinusitis, recurrence not specified, unspecified location (ICD-10 - J01.90) Jan,Other Additional time spent conducting pre-visit phone call, screening for symptoms, instructions on social distancing, application and removal of PPE, and cleaning of examination room, equipment and supplies was preformed. Patient education given for testing methodology and results. Patient care instructions given in writting by [facility] Care At Home document. [facility] [employer] Other Evaluation noteNo assessment information available [facility] Work Phone: Evaluation note* Diagnosis Onset Date Resolution Status Insect bites acuteInsect bitesacute [facility] Work Phone: Evaluation note* Diagnosis Onset Date Resolution Status Insect bites acuteInsect bitesacuteStaph infectionacuteBug bite with infectionnoneactive [facility] Work Phone: Evaluation note* Diagnosis Onset Date Resolution Status Staph infection acuteBug bite with infectionnoneactiveFolliculitisacuteScreening for colon canceracuteScreening mammogram for breast canceracuteWellness examinationacute [facility] Work Phone: Evaluation note* Diagnosis Irregular menstrual bleeding Irregular menstrual cycle documented in this encounter [facility] HealthcareEvaluation [facility]* Diagnosis Menorrhagia with regular cycle documented in this encounter [facility] HealthcareEvaluation note* Diagnosis Well woman exam with [...] Date Medical History vertigo [facility] [employer] Other Reason for referral (narrative)No reason for referral information availableClermont County Hospital Work Phone: Summary Purpose Family History No Family History Records FoundNo Family History Records Found Advance Directives Advance Directive Response Recorded Date/ Time Advance Directives No September 05 10:50am Advance Directive Response Recorded Date/ Time Advance Directives No September 05 9:50am Chief Complaint and Reason for Visit Chief Complaint Rash on legs Chief Complaint Rash on legs Rash - was here 6 days agoReason for VisitInsect bites Insect bites Chief Complaint Rash on legs Rash - was here 6 days ago [facility] follow up for bites on legsReason for VisitInsect bites Insect bites Staph infection Bug bite with infection Chief Complaint Rash on legs Rash - was here 6 days ago [facility] follow up for bites on legs wellnessReason for VisitStaph infection Bug bite with infection Folliculitis Screening for colon cancer Screening mammogram for breast cancer Wellness examination Chief Complaint Admit Date Unknown February 15, 2024 9: 00am Chief Complaint Admit Date Skin irritation on legs August 28, 2024 11:47am Chief Complaint Admit Date Skin irritation on legs August 28, 2024 11:47am Wellness November 04, 2024 2:22pm Reason for Visit Admit Date Folliculitis August 28, 2024 11:4 7am Allergic rhinitis November 04, 2024 2:22pm Screening mammogram for breast cancer Se ptember 2024 2:22pm Wellness examination November 04 2:22pm Additional Source Comments INFORMATION SOURCE (unrecogn ized section and content) DATE CREATED AUTHOR 07/26/2017 [facility] DATE CREATED AUTHOR AUTHOR'S ORGANIZ ATION 02/21/2024 [facility] REASON FOR VISIT (unrecogniz ed section and content) ReasonCommentsMenstrual ProblemReasonCommentsMenorrhagiaReasonComments Gynecologic ExamPre-op Visit Care Teams (unrecognized sec tion and content) Team Status: Active Member Role Status Dates Davina Razo APRN [employer] Primary Care Provider Active Team Status: Inactive Member Role Status Dates Davina Razo APRN [employer] Primary Care Provider Active Start: September 06, 2023 End: September 05Kenton Blevins ProviderActiveStart: September 06, 2023 End: September 06, 2023 Team Status: Inactive Member Role Status Dates Davina Razo APRN [employer] Primary Care Provider Active Start: September 11, 2023 End: September 10Kenton Blevins ProviderActiveStart: September 11, 2023 End: September 11, 2023 Team Status: Inactive Member Role Status Dates Davina Razo APRN [employer] Primary Care Provider Active Start: September 06, 2023 End: September 05Kenton Georges ProviderActiveStart: September 06, 2023 End: September 06, 2023 Team Status: Inactive Member Role Status Dates Davina Razo APRN [employer] Primary Care Provider Active Start: September 11, 2023 End: September 10ivania DIAS , APRNAttenninoska ProviderActiveStart: September 11, 2023 End: September 11, 2023 Team Status: Inactive Member Role Status Dates Davina Razo APRN [employer] Primary Care Provider Active Start: September 19, 2023 End: September 18enemerson Potter , DOAttending ProviderActiveStart: September 19, 2023 End: September 19, 2023 Team Status: Inactive Member Role Status Dates Davina Razo APRN [employer] Primary Care Provider Active Start: October 072023 End: October 17enemerson Potter , DOAttending ProviderActiveStart: October 18, 2023 End: October 18, 2023Team MemberRelationshipSpecialtyStart DateEnd Date Ra Potter MD [address] [place] [address] PCP - GeneralInternal Tuiftqht27/6/24Team MemberRelationshipSpecialtyStart Date End Date Ra Potter MD [address] [place] [address] PCP - GeneralInternal Dwcljlcu32/6/24Team MemberRelationshipSpecialtyStart Date End Date Ra Potter MD [address] [place] [address] [facility] - [facility] Eztnuobd61/6/24 Team Status: Inactive Member Role Status Dates DO Marlyn Costello Active Start : February 15, 2024 End: February 15, 2024Team MemberRelationshipSpecialtyStart DateEnd Date Ra Potter MD [address] [place] [id number] PCP - GeneralW[facility] Centernal Ncnuxexm31/6/24Team MemberRelationshipSpecialtyStart Date End Date Ra Potter MD [address] [place] [facility] [id number] [facility]Primary [facility]12[facility]/23 Team Status: Active Member Role Status Dates Ra Potter DO Primary Care Provider Active Team Status: Inactive Member Role Status Dates Lisa Guardado APRN Attending Provider Active S tart: August 28, 2024 End: August 28Chandana Hammond Care ProviderActiveStart: August 28, 2024 End: August 28, 2024 Team Status: Inactive Member Role Status Dates Ra Potter DO Primary Care Provider Active Start: November 04, 2024 End: November 04tab Potter DOAttending ProviderActiveStart: November 04, 2024 End: November 04, 2024 Goals (unrecognized section and content) Goals [...] BE BASED ON THE PRIMARY CLINICAL RECORDS. [facility] [employer] [facility]. provides no warranty or guarantee of the accuracy or completeness of information in this document.
--- NOTE | 2024-12-09 13:01 | MM_ITS ---
Patient Name: DELVIS SALCEDO MR#: [id number] : 1980 Exam Date: 12/09/2024 Ordering Doctor: DR TOMAS FRITZ D.O. RADIOLOGY REPORT PROCEDURE: MM TOMOSYNTHESIS SCREENING BI COMPARISON: MM TOMOSYNTHESIS SCREENING BI, 10/27/2023. MG MAMM SCREEN 3D ELIEL CAD, 04/23/2020. INDICATIONS: screening for malignant neoplasm Calculator Name NCI Breast Cancer Risk Assessment Tool 5 Year Breast Cancer Risk 1.30% Lifetime Breast Cancer Risk 14.00% Personal Breast Cancer No Personal Ovarian Cancer No Treatments None Family Cancers None LOCATION: [facility] BREAST COMPOSITION: The breasts are heterogeneously dense, which may obscure small masses. FINDINGS: RIGHT BREAST: No significant suspicious finding. LEFT BREAST: No significant suspicious finding. DIAGNOSTIC CATEGORY 1--NEGATIVE. RECOMMENDATIONS: ROUTINE MAMMOGRAM AND CLINICAL EVALUATION IN 12 MONTHS. Dictated by: Dom Rdz MD on 12/09/2024 at 14:57 Approved by: Dom Rdz MD on 12/09/2024 at 14:59
== END 2024-12-09 12:50 | disposition home or self-care (01) ==
PROVIDERS: PCP Internal Medicine; Visit Provider Internal Medicine
DX: Z12.31 Encounter for screening mammogram for malignant neoplasm of breast (principal)
CPT/HCPCS: 77063; 77067

== ENCOUNTER 2024-12-25 08:21 | Outpatient (OUT) | payer BC, SELFPAY ==
--- OUTSIDE RECORDS SUMMARY | 2024-12-24 13:42 | XMS_ITS | CCD ---
Author Organization [facility] CliniSyid Care Team Providers Care Set And Exhibit Designer Name Role Phone JUANITA DIAZ Unavailable Unavailable MAXWELL RAMIREZ Unavailable Unavailable MAXWELL RAMIREZ Unavailable Unavailable JAMES, MAXWELL Unavailable Unavailable Kitty Byrnes Unavailable Ra Potter MD Primary Care Provider Jethro Chavez DO Attending Provider Jethro Chavez Attending Unavailable Jethro Chavez Admitting Unavailable Lisa Guardado APRN Attending Provider Ra Potter DO Primary Care Provider Ra Potter DO Attending Provider [phone] Medications Current Medications MedicationDrug Class(es)DatesSig (Normalized)Sig (Original)azithromycin 250 mg oral tablet (1 source)Macrolide AntimicrobialStart: 85-23-1112Ootleqvdg 250 MG 2 tablet on the first day, then 1 tablet daily for 4 days Orally Once a day for 5 day(s) Jan, Activebenzonatate 100 mg oral capsule (1 source)Non-narcotic AntitussiveStart: 38-43-1338arsd 1 capsule by mouth three times daily as neededTessalon Perles 100 MG 1 capsule as needed Orally Three times a day for 10 day(s) 1 capsule p.o. 3 times daily as needed for Jan, Activefluticasone propionate 0.05 mg/actuat metered dose nasal spray (1 source)CorticosteroidStart: 93-97-9688dafg 2 spray(s) nasal route once daily Fluticasone Propionate 50 MCG/ACT 2 sprays Nasally Once a day for 14 day(s) Jan, ActiveLoratadine (1 source)Claritin Activemupirocin 0.02 mg/mg topical ointment (13 sources)RNA Synthetase Inhibitor AntibacterialStart: 86-61-6994Sxooohzsg 2 % ointment Active 1 APPLIC TOPICAL Twice daily August 28, 2024 12:00am Complies withdrug therapyStart: 09-19-2023 End: 01-83-0399Hgynplzlk 2 % ointment Discontinued 1 APPLIC TOPICAL Twice daily 27 11October 18, 2023 12:00amJuly 2024 11:48amNo Name (No Known Home Meds) (1 source)Start: 30-07-1972Kp Name (No Known Home Meds) Active August 28, 2024 12:00am Completed/Discontinued Medications MedicationDrug Class(es)DatesSig (Normalized)Sig (Original)Childrens Vitamins 60 MG (1 source)take 1 tablet by mouth once dailyChildrens Vitamins 60 MG 1 tablet Orally Once a day for 30 day(s) Not-Takingdoxycycline hyclate 100 mg oral capsule (13 sources)Tetracycline-class DrugStart: 09-19-2023 End: 59-98-9592opud 1 capsule by mouth twice dailyDoxycycline Hyclate 100 mg capsule Discontinued 100 MG PO Twice daily 14 August 28, 2024 12:00am S eptember 2024 2:23pmFluticasone Furoate 27.5 MCG/SPRAY (1 source)Start: 11-28-2935wakw 2 puff(s) nasal route once dailyFluticasone Furoate 27.5 MCG/SPRAY 2 puffs Nasally Once a day Oct, Not-Taking methylPREDNISolone 4 mg oral tablet (6 sources)CorticosteroidStart: 09-06-2023 End: 38-28-0363fzmv 1 tablet by mouth onceMethylprednisolone (Medrol (Jason)) 4 mg tablets,dose pack Discontinued 0 PO per package directions September 06, 2023 12:00am September 11, 2023 9:41am PO PER PKG DIRpredniSONE 20 mg oral tablet (2 sources)Start: 08-28-2024 End: 56-48-2693unlz 2 tablets by mouth once dailyPrednisone 20 mg tablet Discontinued 40 MG PO Daily 10 August 28, 2024 12:00am November 04, 2024 2:23pmStart: 19-31-8792azfh 1 tablet by mouth every twelve hourspredniSONE 20 MG 1 tablet Orally bid for 5 day(s) Jan, Activetriamcinolone acetonide 1 mg/ml topical cream (6 sources)CorticosteroidStart: 09-06-2023 End: 57-45-8475Xvzkwqgrnzatz Acetonide 0.1 % cream Discontinued 1 APPLIC TOPICAL Twice daily 15 7 September 06, 2023 12:00am October 18, 2023 8:42am Apply a thin layer to affected areas twice daily for 7 days Problems Active Problems Problem ClassificationProblemDateDocumented DateEpisodic/ChronicAbdominal pain (1 source)Pain in female pelvis; Translations: [Pelvic and perineal pain] 69-88-9831UxbjisxkSpzfadnrg infection; unspecified site (6 sources)Staphylococcal infectious disease; Translations: [Unspecified staphylococcus as the cause of diseases classified elsewhere]88-55-4255Jbjvfyqc Conditions associated with dizziness or vertigo (5 sources)Labyrinthitis, unspecified ear; Translations: [Vertigo]Onset: 479069-91-9281UmegjwgaL Codes: Natural/environment (9 sources)Insect bite - wound; Translations: [Bitten or stung by nonvenomous insect and other nonvenomous arthropods, initial encounter]37-75-1478Qcnjjaig Menstrual disorders (16 sources)Menorrhagia; Translations: [Excessive and frequent menstruation with regular cycle]Onset: 028695-74-7224BjpebsoNimxb female genital disorders (1 source)Abnormal uterine bleeding; Translations: [Abnormal uterine and vaginal bleeding, unspecified]42-42-3927AngsbzwUlfuv screening for suspected conditions (not mental disorders or infectious disease) (12 sources)Patient encounter status; Translations: [Encounter for screening for malignant neoplasm of colon]45-20-3379XdlkxcieWdqjz skin disorders (5 sources)Folliculitis; Translations: [Follicular disorder, unspecified] 30-21-1140KrjjlvlsFvcbo skin disorders (1 source)Follicular disorder, unspecified; Translations: [Other specified diseases of hair and hair follicles]36-71-3907MpcdltqeFydwy upper respiratory disease (2 sources)Allergic rhinitis; Translations: [Allergic rhinitis, unspecified] 23-98-7963JzgvartCwbwmczhu or history of mental health and substance abuse (1 source)Personal history of nicotine dependence; Translations: [PERSONAL HISTORY OF NICOTINE DEPEND]Onset: 58-61-1549NbzwapgoQxocslc (4 sources)Syncope and collapse; Translations: [SYNCOPE AND COLLAPSE]Onset: 66-64-2105Slzcxgxp Past or Other Problems Problem ClassificationProblemDateDocumented DateEpisodic/ChronicAllergic reactions (3 sources)Inflammatory dermatosis; Translations: [Dermatitis, unspecified] Onset: 326514-57-2615ZuuhastfYekwqdw obstructive pulmonary disease and bronchiectasis (1 source)Bronchitis, not specified as acute or chronicOnset: 01-16-2021 Resolved: 94-55-3396EaczpzvvRxsyiqvyypwaz symptoms and ill-defined conditions (3 sources)Increased frequency of urination; Translations: [Frequency of micturition]Onset: 972077-74-5625QhhsxspuCjdvdacudrppg and screening for infectious disease (1 source)Contact with and (suspected) exposure to other viral communicable diseasesOnset: 01-16-2021 Resolved: 68-47-3136GxcobstgWtjwgpe and fatigue (3 sources)Fatigue; Translations: [Other fatigue]Onset: EpisodicOther connective tissue disease (3 sources)Prepatellar bursitis of right knee; Translations: [Prepatellar bursitis, right knee]Onset: 583787-04-5800JqlpdzbtAamll skin disorders (7 sources)Hirsutism; Translations: [Hirsutism]Onset: EpisodicOther upper respiratory infections (1 source)Acute sinusitis, unspecifiedOnset: 01-16-2021 Resolved: 97-94-5573Lnqberbk Results Test NameValueInterpretationReference RangeFacilityECG 12-LEADon 82-56-8492[address] [address] Electrocardiograph Report Signed Patient: DELVIS SALCEDO MR#: [id number] : 1980 Acct:[id number] Age/Sex: 44 / F ADM Date: 03/06/24 Loc: PST Attending Dr: Jethro Chavez D.O. Ordering Physician: Jethro Chavez D.O. 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 Signed By: 03/07/24 0656 DD/ 1026 TD/TT: Mail Machine Operator:TBHRadiology, Radiologist, MD - 03/07/2024 [place] [address] Electrocardiograph Report Signed Patient: DELVIS SALCEDO MR#: [id number] : 1980 Acct:[id number] Age/Sex: 44 / F ADM Date: 03/06/24 Loc: PST Attending Dr: Jethro Chavez D.O. Ordering Physician: Jethro Chavez D.O. 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 Signed By: 03/07/24 0656 DD/ 1026 TD/TT: Mail Machine Operator: CARLOS Merritt 12-LEADOrdered By: Radiologist Radiology on 95-11-4141[facility] Work Phone: ECG 12-LEADon 44-17-8966Mjavmvcre Study observation (narrative)CARLOS HealthcareIGP,APTIMA HPV,AGE GDLNon 61-36-1625YDO GDLN ACOG TESTINGNote.[facility] HealthcareComment on above:TESTS RESULT FLAG UNITS REF RANGE LAB Clinician Provided Cytology Information Source.............Cervix;Endocervix No. of containers..01 ThinPrep Vial Age Algo ACOG Greer... 28- FLAG LEGEND: L-Low Normal,H-High Normal,LL-Alert Low,HH-Alert High <-Panic Low,>-Panic High,A-Abnormal,AA-Critical Abnormal Performed at: 01 =G [facility] [address] Felipa White MD, HPV APTIMANegativeNegativePARK CITY HOS[facility]ITAL HealthcareComment on above:This nucleic acid amplification test detects fourteen high- risk HPV types (16,18,31,33,35,39,45,51,52,56,58,59,66,68) without differentiation. Performed at: =G - [facility], [place] [id number] Zinc Plating Machine Operator: Felipa White MD, Phone: [phone] Performed at: - [address] [id number] Zinc Plating Machine Operator: Felipa White MD, Phone: [phone] IGP, APTIMA HPV, RFX 16/18,45Note.[facility] HealthcareComment on above:TESTS RESULT FLAG UNITS REF RANGE LAB DIAGNOSIS: 02 NEGATIVE FOR INTRAEPITHELIAL LESION OR MALIGNANCY. Specimen adequacy: 02 Satisfactory for evaluation. Endocervical and/or squamous metaplastic cells (endocervical component) are present. Performed by: Norma Paredes, Contact Lens Flashing Puncher (ASCP) . 02 Note: Note 02 The [...] <-Panic Low,>-Panic High,A-Abnormal,AA-Critical Abnormal Performed at: [address] [address] Felipa White MD, BRUSH-SPATULA CERVIX ENDOCERVIX CLINSt. Louis Children's HospitalEndometrial biopsyon 56-36-7081WcevuAlejandra Oconnor LPN 02/15/2024 10:30 AM Endometrial biopsy [...] Specimen collected: specimen collected and sent to pathologyUNC [facility] ( test) (U)on 77-32-1478Rcdsvexcgpjkdf and review of laboratory resultsNormBradford Regional Medical Center Test, UrNegativeNegativeUNC Health LenoirLon 02-15-2024L Specimen: [id number] Received: 02/16/24 Status: NGHIA Aden Num: [id number] Spec Type: Surgical Subm Dr: Jethro Chavez Tissues: A Endometrium - Biopsy (EMBX) Procedures: HE/2, Gross/Micro L4 Age/ Patient Sex Location Account Attending Physician Delvis Salcedo 44/F LABELL [id number] Jethro Chavez SPEC NUM: [id number] RECD: 02/16/24 STATUS: NGHIA ADEN NUM: [id number] RIO: 02/15/24- SUBM DR: Jethro Chavez ENTERED: 02/16/[address] [facility] DR: Eli,Lab SPEC TYPE: Surgical DEPT: GIGI DOBBINS ENTERED BY: [id number] RECV BY: [id number] ORDERED: HE/2, Gross/Micro L4 ORDERED: HE/2, Gross/Micro [...] submitted in a single cassette. (1, corrina, BS63-13) J Microscopic Description Microscopic examinations are performed supporting the above interpretation Specimen: BS25 Received: 02/16/24 Status: NGHIA Keiko Num: [id number] Spec Type: Surgical Subm Dr: Jethro Chavez Tissues: A Endometrium - Biopsy (EMBX) Procedures: /2, Gross/Micro L4 Patient: Delvis Salcedo [id number] (Continued) Specimen: BS25 Received: 02/16/24 (Continued) Signed (signature on file) Leigh Taylor MD 02/19/24 1608 Specimen: BS Received: 02/16/24 Status: NGHIA Aden Num: [id number] Spec Type: Surgical Subm Dr: Jethro Nugent: A Endometrium - Biopsy (EMBX) Procedures: HE/Jose Manuel, Bharat/Tate L4 Patient: Delvis Salcedo [id number] (Continued) Specimen: BS25 Received: 02/16/24 (Continued) CPT Codes 61136 Specimen: BS25 Received: 02/16/24 Status: NGHIA Aden Num: [id number] Spec Type: Surgical Subm Dr: Jethro Kathy Tissues: A Endometrium - Biopsy (EMBX) Procedures: HE/2, Gross/Micro L4 Patient: Delvis Salcedo [id number] (Continued) Signed (signature on file) Isak-Yasir Taylor MD 02/19/[address] [place] [address] Physician GroupCOVID Quick Testingon 79-42-0299KyyxrfColumbia Miami [facility] Institute [employer] Other CARDIAC KARLI ADMITon 48-27-3100DQGT6.30 ng/mLNormal <=2.37The [facility] CenterComment on above:Performed By: #### JIM FONTANA ####[facility] Rrjpbcxxjh5457 [address] KarenCreatine kinase (CK)84 U/YVebkoh13-234Xvr [facility] CenterComment on above:Performed By: #### JIM FONTANA ####[facility] Uvtvezzjoh64[address] JudeenINReyna Coag RelTime (Bld)SEE BELOWNormal The [facility] Medical CenterComment on above:Result Comment: <0.034 ng/ml NEGATIVE 0.034-0.119 INDETERMINATE 0.120 AMI CUT OFFPerformed By: #### JIM FONTANA ####[facility] E[address] [place] [address] FrxqkAWQ95.1 ng/mLNormal<=61.5The [facility] CenterComment on above:Performed By: #### JIM FONTANA ####[facility] L[address] [place] [address] KarenTROP<0.012Normal<=0.034The [facility] CenterComment on above:Performed By: #### JIM FONTANA ####[facility] Myjvnlgn[address] [place] [address] KarenCBC W MANUAL DIFF on 63-80-6395FKVH #0.2 103/ulNormal0.0-0.3The [facility] CenterComment on above: Performed By: #### JOHANNY ####[facility] [address] [place] [address] KarenBAND %3 %Normal0-5The [facility] Comment on above:Performed By: #### JOHANNY ####[facility] [address] [place] [address] KarenBASOM %0.0 %Critically low 0.2-2.0The [facility] CenterComment on above:Performed By: #### JOHANNY ####[facility] Xrs[address] [place] [address] KarenBasophils Auto #/vol (Bld)0.00 103/ulNormal0.00-0.10The [facility] Comment on above:Performed By: #### JOHANNY ####[facility] [address]tqunev[address]qg[address] [place] [address] KarenBLAST #NormalThe [facility] Medical CenterComment on above:Performed By: #### JOHANNY ####[facility] Erxwdtlxck[address] [place] [address] KarenBLAST %NormalThe [facility] CenterComment on above:Performed By: #### JOHANNY ####[facility] Signvqkway[address] [place] [address] Jane Eosinophils0.00 103/ulNormal0.00-0.70The [facility] on above: Performed By: #### CBCDALLAS ####[facility] Rnevtuyswx[address] [place], [place] [address]Gerken KarenEosinophils/100 leukocytes0.0 %Critically low0.9-7.0The [facility] on above:Performed By: #### CBCDALLAS ####[facility] Htfrblolmk[address] [place], [place] [address]Gerken KarenErythrocyte distribution width Auto Ratio (RBC)12.8 %Jhwrzz23.0-15.0The [facility] CenterComment on above:Performed By: #### CBCDALLAS ####[facility] Bydarihjsn[address] [place], [place] [address]Gerken Jane Erythrocytes (RBC)4.68 106/ulNormal4.20-5.40The [facility] CenterComhurley medical center on above:Performed By: #### JOHANNY ####[facility] Dakkjchtrd[address] [place], [place] [address]Gerken KarenErythrocytes (RBC)NormalThe [facility] on above:Performed By: #### CBCDALLAS ####[facility] Pdjhnscwtn[address] [place], [place] [address]Gerken KarenHematocrit (HCT) 43.0 %Zkzfmk09.0-48.0The [facility] on above:Performed By: #### JOHANNY ####[facility] Pwzpsvdsuy[address] [place], [place] [address]Gerken KarenHemoglobin mass conc (Bld)14.8 g/kLMscmto42.0-16.0The [facility] on above:Performed By: #### CBCDALLAS ####[facility] Gdaxkyolcc[address] [place], [place] [address]Gerken KarenLymphocytes0.66 103/ulCritically low1.20-3.80The [facility] CenterComhurley medical center on above:Performed By: #### JOHANNY ####[facility] I[address]vnrasyl[address] [place], [place] [address]Gerken KarenLymphocytesNormalThe [facility] CenterComment on above: Performed By: #### JOHANNY ####[facility] [address] [place] [address]Gerken KarenLymphocytes/100 jmjkmanimc29.0 %Critically low20.5-60.0The [facility] CenterComment on above:Performed By: #### JOHANNY ####[facility] [address] [place] [address]Gerken KarenLymphocytes/100 leukocytesNormalThe [facility] CenterComment on above: Performed By: #### JOHANNY ####[facility] Fvrkbqkrqm5277 [address] DswxpXHN17.6 ttQblwoj12.7-34.0The [facility] CenterComment on above:Performed By: #### JOHANNY ####[facility] [address] [place] [address] KarenMCHC mass conc (RBC)34.4 g/pAZfttkj95.9-35.2The [facility] CenterComment on above:Performed By: #### JOHANNY ####[facility] [address] [place] [address] WekzvKAM46.9 xBMhtzjt87.0-99.0The [facility] CenterComment on above:Performed By: #### JOHANNY ####[facility] [address]cvpsbdh[address] [place] [address] KarenMETAMYELOCYTE #NormalThe [facility] Comment on above:Performed By: ###Virgen ORLANDO ####[facility] Vlbqgkcqvo[address]37 [address] KarenMETAMYELOCYTE %NormalThe [facility] CenterComment on above:Performed By: #### JOHANNY ####[facility] Rewornnffe[address] [place] [address] KarenMONOM# 0.40 103/ulNormal0.30-0.80The [facility] CenterComment on above:Performed By: #### JOHANNY ####[facility] [address]cw[address] [place] [address] KarenMONOM%6.0 %Normal1.7-12.0The [facility] CenterComment on above: Performed By: #### JOHANNY ####[facility] [address]qssj[address] [place], [place] [address]Segner KarenMYELOCYTE #NormalThe [facility] Comment on above:Performed By: #### JOHANNY ####[facility] Zpsmolabev[address] [place], [place] [address]Hiwjxu KarenMYELOCYTE %NormalThe [facility] CenterComment on above:Performed By: #### JOHANNY ####[facility] [address]oglumycx[address] [place] [address] KarenPlatelet mean volume (PMV)11.3 fLNormal9.5-13.5The [facility] CenterComment on above:Performed By: #### JOHANNY ####[facility] [address]zb[address] [place] [address] ZfcysGiiuqtckv011 103/ulCritically wzs520-322Slj [facility] CenterComment on above:Performed By: #### JOHANNY ####[facility] Gsiairvsnc[address] [place], [place] [address]Gerken KarenSEG #5.35 103/ul Normal1.40-6.50The [facility] Campusment on above:Performed By: #### JOHANNY ####[facility] Qrkimmvsjt[address] [place] [address] KarenSegmented Neutrophils/100 lgbytcjura15.0 %Critically high43.0-75.0The [facility] CenterComment on above:Performed By: #### JOHNANY ####[facility] [address]cllro[address] [place] [address] KarenWBC (Leukocytes)6.6 103/ulNormal4.0-11.0The [facility] CenterComment on above: Performed By: #### JOHANNY ####[facility] Fwybzhnegz[address] [place] [address] KarenWBC (Leukocytes)Normal4.0-11.0The [facility] CenterComment on above:Performed By: #### JOHANNY ####[facility] S[address]vqzikvf[address] [place], [place] [address]Gvbipy KarenER URINE PROFILE on 82-53-9676Jxfrhzhnd (total)NegativeNormalNEGATIVEThe [facility] CenterComment on above:Performed By: #### MIRTA CHAMPAGNE ####[facility] Ignaodqhio[address] [place], [place]Gerken KarenBLOODTRACE-INTACTNormalNEGATIVE The [facility] CenterComment on above:Performed By: #### MIRTA CHAMPAGNE ####[facility] Hmotktiyuf[address] [place], [place]Gerken KarenERUAHDA micrscopic examination will be performed if indicated.NormalThe [facility] CenterComment on above:Performed By: #### MIRTA CHAMPAGNE ####[facility] [address]ykq[address] [place] [address]Gerken KarenGlucose mass concNegativeNormalNEGATIVEThe [facility] CenterComment on above:Performed By: #### MIRTA CHAMPAGNE ####[facility] [address] [place] [address]Gerken KarenpH of blood6.0 [pH]Normal5-9The [facility] CenterComhurley medical center on above:Performed By: #### MIRTA CHAMPAGNE ####[facility] Fnhtdlprbw2272 [place], [place]Gerken KarenProteinNegative NormalThe [facility] CenterComment on above:Performed By: #### MIRTA CHAMPAGNE ####[facility] Qjdrhxzubz[address] [place], [place] [address]Gerken KarenSPEC GRAVITY1.617Zhxsly2.005-<=1.025The [facility] Campusment on above: Performed By: #### MIRTA CHAMPAGNE ####[facility] [address]jg[address] [place] [address]Gerken KarenUR MICRO INDINDICATEDNormalThe [facility] CenterComment on above:Performed By: #### MIRTA CHAMPAGNE ####[facility] [address]osx[address] [place], [place] [address]Gerken KarenUrine, clarity CLEARNormalThe Vernon HospitalComment on above:Performed By: #### MIRTA CHAMPAGNE ####[facility] C[address]bnrjeek[address] [place] [address]Gerken KarenUrine, colorYELLOWNormalYELLOWKettering Health Dayton HospitalComment on above: Performed By: #### MIRTA CHAMPAGNE ####[facility] Sulavrnbhf[address] KarenUrine, ketones presenceNegativeNormal NEGATIVEKettering Health Dayton HospitalComment on above:Performed By: #### MIRTA CHAMPAGNE ####[facility] Rrwihhfohs[address] KarenUrine, nitrite presenceNegativeNormalNEGATIVEKettering Health Dayton HospitalComment on above:Performed By: #### MIRTA CHAMPAGNE ####[facility] Srtcriuwap[address] KarenUrine, urobilinogen0.2 {Stephanie'U}/dLNormalThUC [facility] HospitalComment on above:Performed By: #### MIRTA CHAMPAGNE ####[facility] [address]ksb[address] [place] [address] KarenWBC (Leukocytes)NegativeNormalNEGATIVEKettering Health [facility] Hospital Comment on above:Performed By: #### MIRTA CHAMPAGNE ####[facility] Goprvxetpo[address] KarenPREG HCG QUALon 26-53-8379ACUSZEWES, QUALNegativeNormalNEGATIVEKettering Health Dayton HospitalComment on above:Performed By: #### PREG ####[facility] Vuiiedknuk[address] [place] [address] KarenPROF CHEM 8 (BAS METB)on 84-66-3484Axjlo gap12.5 mmol/LNormalKettering Health Dayton HospitalComment on above:Performed By: #### BMP, CMADM ####[facility] Tifxmffsrx7757 [address]ken KarenBUN/Creatinine Ratio16.1 mg/mgNormalThe [facility] Comment on above:Performed By: #### ADDI, CMAJESSIE ####[facility] Qkyorvnmck[address] [place] [address]Gerken KarenCalcium9.6 mg/dL Normal8.4-10.2The [facility] CenterComment on above:Performed By: #### ADDI, CMADM ####[facility] P[address]egz[address] [place], [place] [address]Gerken ZuxlpXliyqyok795 mmol/GZufoks83-454Kxb [facility] CenterComment on above:Performed By: #### ADDI, CMAJESSIE ####[facility] K[address]vp[address] [place], [place] [address]Gerken MwzfvSV701.0 mmol/WJikzgf21.0-30.0The [facility] CenterComment on above:Performed By: #### ADDI, CMAJESSIE ####[facility] [address]af[address] [place], [place] [address]Gerken Jane Creatinine0.74 mg/dLNormal0.52-1.04The [facility] CenterComment on above: Performed By: #### ADDI, CMADM ####[facility] Dihyuj[address]umk[address] [place], [place] [address] KareneGFR (non-black)mL/min/{1.73_m2}Normal>=60 The [facility] CenterComment on above:Performed By: #### ADDI, CMADM ####[facility] Zutkrwuagr[address] [place], [place] [address]Gerken KarenGlucose mass conc94 mg/wHKjufdd27-818Dau [facility] CenterComment on above:Performed By: #### ADDI, CMADM ####[facility] Efqhdkqnqs[address] [place], [place] [address] KarenPotassium molar conc4.2 mmol/LNormal 3.4-5.0The [facility] CenterComment on above:Performed By: #### ADDI, CMAJESSIE ####[facility] B[address] [place], [place] [address]ken UnafrByauhl932 mmol/THzzyxb078-977Xsv [facility] CenterComment on above: Performed By: #### ADDI, CMADM ####[facility] A[address]pc[address] [place] [address]Gerken KarenUrea zsvebzms40.0 mg/dLNormal7.0-17.0The [facility] CenterComment on above:Performed By: #### ADDI, CMADM ####[facility] Laonjgzuro[address] [place], [place] [address]Jeqxjt KarenURINE MICROSCOPIC ONLYon 47-05-8600BYSPNVOK SEENNormalNONE SEENKettering Health [facility] Comment on above:Performed By: #### IHSAN UMICRO ####[facility] Twwpohnizh[address] [place], [place]Gerken KarenCULTURENOT INDICATEDSt. Vincent HospitalComment on above:Performed By: #### IHSAN UMICRO ####[facility] Qfmnlxjcoo50[address] [place] [address]Gerken KarenErythrocytes (RBC)3-1Pdcyef9-0Vgl [facility] CenterComment on above:Performed By: #### IHSAN UMICRO ####[facility] Mvjetxerpy89[address] [place], [place]Gerken KarenMUCOUSMODERATENormalNONE SEENKettering Health DaytonComment on above:Performed By: #### IHSAN UMICRO ####[facility] Lxifcbusqb0[address] [place] [address]Gerken KarenUrine, bacteria in sedimentNONE SEENNormalNONE SEENKettering Health DaytonComment on above:Performed By: #### IHSAN UMICRO ####[facility] Mkofzzrfwl668[address] [place], [place]Gerken KarenUrine, crystals in sedimentNONE SEEN NormalNONE SEENKettering Health DaytonComment on above:Performed By: #### IHSAN UMICRO ####[facility] Zseuqgbogy64[address] [place] [address]Gerken KarenUrine, epithelial cells in sedimentFEWadsworth-Rittman HospitalComment on above:Performed By: #### ERUR, UMICRO ####[facility] Ufgntlkekz026[address] [place], [place]Aurelio LaraWBC (Leukocytes) NONE SEENNormalNONE SEENKettering Health DaytonComment on above:Performed By: #### ERUR, UMICRO ####[facility] Pxgqaidjtj7[address] [place], [place]Aurelio Lara Vital Signs Date TimeVital SignValuePerforming PxsflmtsmPvsasmke57-34-9455 14:27-0400Body eqfpzw092.1 cmBenjamin Ball DO Work Phone: [phone] [place], [place] 549[address]9-29-2025 14:27-0400 Body mass index (BMI) [Ratio]24.3 kg/a6Kobkynvh Ball DO Work Phone: [phone] [place], [place] 549[address]9-29-2025 14:27-0400 Body gqvlfy31.28 kgBenjamin Ball DO Work Phone: 1(419)[address] [place], [place] 549[address]9-29-2025 14:27-0400 Diastolic blood ihcpzyfj55 mm[Hg]Ra Ball DO Work Phone: 1(419)[address] [place], [place] 549[address]9-29-2025 14:27-0400 Heart rate88 /minBenjamin Ball DO Work Phone: 1(419)[address] [place], [place] 549[address]9-29-2025 14:27-0400 Respiratory rate12 /minBenjamin Ball DO Work Phone: 1(419)[address] [place], [place] 549[address]9-29-2025 14:27-0400 Systolic blood jqeowdmi499 mm[Hg]Ar Ball DO Work Phone: 1(419)[address] [place], [place] 549[address]7-23-2025 11:49-0400 Body zttgyw210.1 cmBenjamin Ball DO Work Phone: [phone] [place], [place] 549[address]7-23-2025 11:49-0400 Body mass index (BMI) [Ratio]23.9 kg/h7Ipjxfmhf Ball DO Work Phone: 1(995)[address] [place], [place] 549[address]7-23-2025 11:49-0400 Body vetmxcrgsrr99.6 [degF]Ra Ball DO Work Phone: 1(355)[address] [place], [place] 549[address]7-23-2025 11:49-0400 Body jjbtep30.31 kgBenjamin Ball DO Work Phone: 1(313)[address] [place], [place] 5491107-23-2025 11:49-0400 Diastolic blood ulxsfpjz98 mm[Hg]Ra Ball DO Work Phone: 1(434)[address] [place], [place] 549[address]7-23-2025 11:49-0400 Heart rate78 /minBenjamin Ball DO Work Phone: 1(436)[address] [place], [place] 549[address]7-23-2025 11:49-0400 Respiratory rate14 /minBenjamin Ball DO Work Phone: 1(980)[address] [place], [place] 549[address]7-23-2025 11:49-0400 SaO2% (BldA) [Mass fraction]99 %Ra Ball DO Work Phone: 1(683)[address] [place], [place] 549[address]7-23-2025 11:49-0400 Systolic blood zrdzeivz265 mm[Hg]Ra Ball DO Work Phone: 1(620)[facility] [place], [place] [address]8401-21-2025 10:48-0500 Body mass index (BMI) [Ratio]24.3 kg/y9Gllnv Kathy DO Work Phone: [facility] HospitalKubsjbocyj51-57-2837 10:48-0500Body liaojv34.22 kgCorey Kathy DO Work Phone: [phone] [place], [place] [address]Aqtbxzmrhu55-30-0857 10:48-0500Diastolic blood cijtkjby10 mm[Hg]Jethro Kathy DO Work Phone: [phone])817-[facility] HospitalRysonhpcie26-62-0030 10:48-0500Systolic blood evzsdkkg934 mm[Hg]Jethro Kathy DO Work Phone: 1(247)632-[facility] HospitalRhwadndaew63-32-1348 09:44-0500Body mass index (BMI) [Ratio]25.13 kg/f9Omrdp Kathy DO Work Phone: [facility] HospitalNrgcasuhqb82-47-2233 09:44-0500Body mewoxo32.49 kgCorey Kathy DO Work Phone: [facility] HospitalCtuarqqgqr99-80-9857 09:44-0500Diastolic blood dpsvapju65 mm[Hg]Jethro Kathy DO Work Phone: 1(069)201-[facility] HospitalQlhwsqozxw29-89-2646 09:44-0500Systolic blood bxaapgpf288 mm[Hg]Jethro Kathy DO Work Phone: [phone])669-[address] [place], [place] [address]Nldphueiye81-51-4551 13:53-0500Body cuudyv203.1 cmCorey Kathy DO Work Phone: [phone] [place], [place] [address]Lpepfrxaed61-33-9505 13:53-0500Body mass index (BMI) [Ratio]24.1 kg/e2Tmqlv Kathy DO Work Phone: 1(534)879-[address] [place], [place] [address]Jnwlyvccym28-80-0501 13:53-0500Body omddvj25.68 kgCorey Kathy DO Work Phone: 1(281)345-[address] [place], [place] [address]Jfponbwqca82-28-2675 13:53-0500Diastolic blood ybsnkqny87 mm[Hg]Jethro Kathy DO Work Phone: 1(798)299-[address] [place], [place] [address]Xzcfighkcb54-56-6288 13:53-0500Systolic blood yksrkknz531 mm[Hg]Jethro Kathy DO Work Phone: 1(930)624-[facility] HospitalNfuuuykhzd05-29-8309 08:42-0400Body .1 [facility]09-11-2024 08:42-0400Body mass index (BMI) [Ratio]24.7 kg/s2VygpwraziCleveland Clinic [facility]or Hospital09-11-2024 08:42-0400Body figtul79.3 kgC[facility]09-11-2024 08:42-0400Diastolic blood mcwdfdix31 mm[Hg][facility]09-11-2024 08:42-0400 Heart rate74 /[facility]09-11-2024 08:42-0400 Respiratory rate12 /[facility]09-11-2024 08:42-0400 Systolic blood mm[Hg][facility]08-13-2024 08:58-0400Body .1 cmC[facility]08-13-2024 08:58-0400Body mass index (BMI) [Ratio]23.7 kg/d4DtxsiqlduCleveland Clinic [facility] Hospital08-13-2024 08:58-0400Body ulxvco64.63 kgC[facility] 09-19-2023 08:58-0400Diastolic blood niuulcaz80 mm[Hg][facility]08-13-2024 08:58-0400Heart rate79 /[facility] 09-19-2023 08:58-0400Respiratory rate12 /[facility] 09-19-2023 08:58-0400Systolic blood gihykwwp274 mm[Hg][facility]08-05-2024 09:40-0400Body okctpp726.1 cmC[facility] 09-11-2023 09:40-0400Body mass index (BMI) [Ratio]23.3 kg/x3OajtgqfznCleveland Clinic [facility]or Hospital08-05-2024 09:40-0400Body tjcpwkhpdfu30.4 [degF][facility]08-05-2024 09:40-0400Body tucbpo56.5 [facility]08-05-2024 09:40-0400Heart rate75 /[facility] 09-11-2023 09:40-0400Respiratory rate18 /[facility] 09-11-2023 09:40-4296LuN7% (BldA) [Mass fraction]99 %[facility]07-31-2024 10:56-0400Body fnsahk684.1 cmC[facility] 09-06-2023 10:56-0400Body mass index (BMI) [Ratio]23.3 kg/f4KnthcwxbbC[facility] Clinic [facility] Hospital07-31-2024 10:56-0400Body uwjqxbnvyjp03.4 [degF][facility]07-31-2024 10:56-0400Body goqtgl14.5 kgC[facility]07-31-2024 10:56-0400Diastolic blood xatdqhsj96 mm[Hg][facility]07-31-2024 10:56-0400Heart rate77 /[facility]07-31-2024 10:56-0400Respiratory rate18 /[facility]07-31-2024 10:56-6020JnB2% (BldA) [Mass fraction]98 %[facility]07-31-2024 10:56-0400Systolic blood eebvleiv484 mm[Hg][facility]12-11-2021 14:00-0500Body .1 cmPamela Soniya Other [employer] Other 12-11-2021 14:00-0500Body mass index (BMI) [Ratio]20.8 kg/h3MtnxzpKitty Byrnes Other [employer] Other 12-11-2021 14:00-0500Body sitkvanqeqn60.1 [degF]Kitty Byrnes Other [employer] Other 12-11-2021 14:00-0500Body egidrn56.7 kgKitty Byrnes Other [employer] Other 12-11-2021 14:00-0500Respiratory rate18 /Shawna Byrnes Other [employer] Other 12-11-2021 14:00-4505JnB0% (BldA) [Mass fraction]99 % Kitty Geemond Other [employer] Other Encounters Encounter DateEncounter TypeCare ProviderFacilityStart: 11-04-2024 End: 70-39-4691cqdtmtklfrSaudxjou Ball DO Work Phone: [place] [address] Work Phone: Start: 11-04-2024 End: 66-31-1811Qfnxggn encounter procedureBefernieemerson Potter DO-[facility] Work Phone: Start: 11-04-2024 End: 51-48-4427Mrubmrf encounter statusBeginger Potter [facility] Hospitaltart: 08-28-2024 End: 96-21-6142tnsmbbennbYnxzxaxl Ball DO Work Phone: [facility] Work Phone: Start: 08-28-2024 End: 07-83-0017Injihjl encounter procedureKirillsonny Hyman ROOF PANEL HANGER-[facility] Work Phone: Start: 03-06-2024 End: 36-09-6553Tmpwdocap Result EncounterCorey Kathy DO Work Phone: [facility] External Department UnsolicitedStart: 03-06-2024 End: 44-81-2825Xtozcwkzo Result EncounterCorey Kathy DO Work Phone: [facility] External Department UnsolicitedStart: 02-27-2024 End: 75-73-7944Dzppop flowsheetCorey Kathy DO Work Phone: [facility] BCP OBStart: 02-27-2024 End: 41-03-0554Yfloog flowsheetCorey Kathy DO Work Phone: [facility] BCP OBStart: 02-27-2024 End: 12-90-3912Tjnfajcud Result EncounterCorey Kathy DO Work Phone: [facility] External Department UnsolicitedStart: 02-27-2024 End: 92-55-1829Msqjdzp encounter procedureCorey Kathy DO Work Phone: noms HealthcareStart: 02-27-2024 End: 05-32-4086Tgoipzku preventive med est patient 40-64yrsCorey Kathy DO Work Phone: [facility] BCP OBComment on above:Well woman exam with routine gynecological exam; Breast cancer screening by mammogram; Pre-op examination; Menorrhagia with regular cycle; Abnormal uterine bleeding; Pelvic pain in femaleStart: 02-27-2024 End: 20-30-6212Dzxinhnvevlaf examination doneCorey Kathy DO Work Phone: [facility] HealthcareStart: 02-15-2024 End: 17-20-4188Nxbpsgi encounter procedureCorey Kathy DO Work Phone: [facility] BCP OBComment on above:Menorrhagia with regular cycleStart: 02-15-2024 End: 29-91-0747fieibcihgwJuezv FaBellevue Hospital Ctr Work Phone: Start: 02-15-2024 End: 33-74-5363Qjlezibw ReferredCorey Kathy DO Work Phone: [facility]-LAB Path Spec [facility] HospStart: 12-13-2023 End: 73-28-1487Cgvshu flowsheetCorey Kathy DO Work Phone: [facility] BCP OBStart: 12-13-2023 End: 17-51-2508Wxrpef flowsheetCorey Kathy DO Work Phone: [facility] BCP OBStart: 12-13-2023 End: 73-72-3480Lgorrl outpatient visit 15 minutesCorey Kathy DO Work Phone: [facility] BCP OBComment on above:Irregular menstrual bleedingStart: 10-18-2023 End: 04-35-1461csmophogztXtaquiwqp [facility] Work Phone: Start: 10-18-2023 End: 80-29-8424Ustiyzovr for general adult medical examination without abnormal findingsCity Hospitaltart: 10-18-2023 End: 15-00-0226Mppwwjm encounter procedureCarolinas [facility] Work Phone: Start: 46-73-1932Wswitgr encounter statusCity Hospitaltart: 09-19-2023 End: 44-82-4660rvfceaeelcYejrxqexcParkview Health Work Phone: Start: 09-19-2023 End: 91-18-2273Yomstvs encounter procedureCarolinas [facility] Work Phone: Start: 09-11-2023 End: 48-75-4278pjtbfxqqrpFefatpzehBrown Memorial Hospital Work Phone: Start: 09-11-2023 End: 38-77-2123Eokchsk encounter procedureCarolinas [facility] Work Phone: Start: 09-06-2023 End: 68-27-6580bjwzfcxokeEtainvqheBrown Memorial Hospital Work Phone: Start: 09-06-2023 End: 94-05-5373Xorcjpj encounter procedureCarolinas [facility] Work Phone: Start: 01-16-2021(URG) Urgent Care VisitPamela Soniya [facility] Urgent Care ClydeStart: 01-16-2021 End: 86-60-3345jpukercwgxRmxrpd Soniya Other [employer] Other Start: 06-14-2017 End: 67-62-5498XgwtqmzsdeWCUPDT [place] BRAUNFacility:H1 Procedures DateProcedureProcedure DetailPerforming ClinicianStart: 30-47-5126FBF 12-LEAD Jethro Kathy DO Work Phone: Start: 52-72-8788HMD,APTIMA HPV,AGE GDLNCorey Kathy DO Work Phone: Start: 67-42-4248GTXTLCVHDTW BIOPSYCorey Kathy DO Work Phone: Start: 97-89-2483Ithlz test visual color cmprsn methsCorey Kathy DO Work Phone: Plan of Treatment DateCare ActivityDetailAuthorStart: 02-27-2024 End: 64-22-2847XE Breast - bilateral ScreeningBilateral screening mammogram Imaging Routine Breast cancer screening by mammogram Expected: 02/27/2024 (Approximate), Expires: 04/26/2025[facility] Work Phone: comment on above:Expected: 02/27/2024 (Approximate), Expires: 04/26/2025Start: 02-27-2024 End: 11-04-5316Ddtfvqt encounter procedureNOMS BCP OBComment on above:Arrived Start: 02-21-2024 End: 79-68-6798Otpfsmmviuae / ancillary services yndbcpfryl29/15/2025 11:00 AM EST Ancillary Procedure [facility] [address] [place] [address] [facility] BCP OBStart: 02-15-2024 End: 20-65-3409GK PelvisUS Pelvis w/ TV Imaging Routine Menorrhagia with regular cycle Expected: 02/15/2024, Expires: 02/14/2025[facility] Work Phone: comment on above:Expected: 02/15/2024, Expires: 02/14/2025Start: 01-17-2024 End: 66-67-7486Ufqgeou encounter ssdlcxaeh43/11/2024 2:40 PM EST Consult [facility] OB [facility] [place] [address] Jethro Chavez, DO [address] [place], [place] [address] [facility] BCP OBStart: 01-08-2024 End: 29-08-0759Dzpgdom encounter emlljftwq72/02/2024 1:30 PM EST Procedure Visit [facility] [address] [place] [address] Jethro Chavez, DO [address] [place], [place] [address] [facility] BCP OBStart: 12-13-2023 End: 14-31-3227KA for pregnancyUS PELVIS-TRANSVAG IF INDICATED Imaging Routine Irregular menstrual bleeding Expected: 12/13/2023 (Approximate), Expires: 12/12/2024[facility] Work Phone: comment on above:Expected: 12/13/2023 (Approximate), Expires: 12/12/2024omprehensive metabolic 1999 panel - Serum or PlasmaCleveland Clinic Mentor HospitalComprehensive metabolic 1999 panel - Serum or Plasma [facility] HospitalMG Breast - bilateral ScreeningCleveland Clinic Mentor HospitalMG Breast - bilateral ScreeningCleveland Clinic Mentor HospitalTHIN PREP TIS PAP AND HR HPV DNATHIN PREP TIS PAP AND HR HPV DNA Pathology and Cytology Routine Well woman exam with routine gynecological exam Ordered: 02/27/2024[facility] HospitalComment on above:Ordered: 02/27/2024[facility] Payers DatePayer CategoryPayerPolicy [id number] Cross Blue ShieldBCBS Member Subscriber Plan / Payer (Effective 2021-Present) Name: Delvis Salcedo Relation to Subscriber: Spouse Name: Elías Salcedo Date of : 1976 (Work) Address: [address] [place] [id number] Payer ID: Janon file Type: Not on file [facility] [address] [place] [id number] [id number] [id number] Social History DateTypeDetailFacilitySex Assigned At BirthNorth [employer] Other Start: 09-06-2023 End: 31-53-5383Ouqumqj smoking status NHISNever smoked tobacco (finding) [facility]: 03-98-7191Rib Assigned At [facility] County HospitalTobacc smoking status NHISTobacco smoking consumption unknownNOMS HealthcareStart: 38-76-5294Alvtpd identityIdentifies as female gender (finding)[facility] HealthcareStart: 12-70-7356EujSmhbft (finding) [facility] Clinical Notes 01-16-2021 to 08-28-2024 Note Date & XzmmMedrQudhvgdg95-66-7697 Evaluation note* Diagnosis Onset Date Resolution Status Admit Date Folliculitis deletedJuly 2024 11:47amAllergic rhinitisacuteSeptember 2024 2:22pm Screening mammogram for breast canceracuteSeptember 2024 2:22pmWellness examinationacuteSeptember 2024 2:22pm [facility] Work Phone: 1(428) 344-325401-21-2025 History of Present illness Narrative* Katelynn Miles - 02/27/2024 10:30 AM EST Reason for Appointment: Patient ID: Delvis Salcedo is a 44 y.o. female who presents for Gynecologic Exam and Pre-op Visit Patient presents today for Pre Op/Annual appointment. Patient is scheduled to undergo Endometrial Ablation with Ramona on 03/15/[address] Chavez at [facility]. MEDICATIONS No current outpatient medications [...] reviewed, and patient is to proceed to [facility] OR. Follow Up: Patient is to follow up between 1-2 weeks post op to assess proper healing and recovery from procedure. Documented by Jane Samson LPN on behalf of: Jethro Chavez DO documented in this encounterWright Memorial HospitalXpvtsjyuer20-14-2016 History of Present illness Narrative* Alejandra Oconnor [...] nursing note reviewed. Exam conducted with a power lineman present. Vitals: Estimated body mass index is [...] of: Jethro Chavez DO documented in this encounterWright Memorial HospitalMyvothbmfz95-05-8769 History of Present illness Narrative* Jane Samson [...] nursing note reviewed. Exam conducted with a power lineman present. Vitals: Estimated body mass index is [...] of: Jethro Chavez DO documented in this encounterWright Memorial HospitalYodobblsip30-06-0639 Evaluation note* Encounter Date Diagnosis Assessment Notes [...] Patient care instructions given in writting by [facility] Care At Home document. Labs on the Go [facility] Soceaniq Other Evaluation noteNo assessment information available [facility] Work Phone: Evaluation note* Diagnosis Onset Date Resolution Status Insect bites acuteInsect bitesacute [facility] Work Phone: Evaluation note* Diagnosis Onset Date Resolution Status Insect bites acuteInsect bitesacuteStaph infectionacuteBug bite with infectionnoneactive [facility] Work Phone: Evaluation note* Diagnosis Onset Date Resolution Status Staph infection acuteBug bite with infectionnoneactiveFolliculitisacuteScreening for colon canceracuteScreening mammogram for breast canceracuteWellness examinationacute [facility] Work Phone: Evaluation note* Diagnosis Irregular [...] Reported* Type Description Date Medical History vertigo [facility]erged [facility] [employer] Other Reason for referral (narrative)No reason for referral information availableMercy Health Perrysburg Hospital Work Phone: Summary Purpose Family History [...] section and content) DATE CREATED AUTHOR 07/26/2017 [facility] DATE CREATED AUTHOR AUTHOR'S ORGANIZ ATION 02/21/2024 [facility] REASON FOR VISIT (unrecogniz ed section and content) ReasonCommentsMenstrual ProblemReasonCommentsMenorrhagiaReasonComments Gynecologic ExamPre-op Visit Care Teams (unrecognized sec tion and content) Team Status: Active Member Role Status Dates Davina Razo APRN BAKELITE MOLDER-C Primary Care Provider Active Team Status: Inactive Member Role Status Dates Davina Razo APRN [employer]-C Primary Care Provider Active Start: September 06, 2023 End: September 05Kenton Blevins ProviderActiveStart: September 06, 2023 End: September 06, 2023 Team Status: Inactive Member Role Status Dates Davina Razo APRN [employer] M[employer]-C Primary Care Provider Active Start: September 11, 2023 End: September 10Kenton Blevins ProviderActiveStart: September 11, 2023 End: September 11, 2023 Team Status: Inactive Member Role Status Dates Davina Razo APRN [employer]AK[employer]ITE M[employer]-C Primary Care Provider Active Start: September 06, 2023 End: September 05Kenton Georges ProviderActiveStart: September 06, 2023 End: September 06, 2023 Team Status: Inactive Member Role Status Dates Davina Razo APRN [employer]AK[employer] M[employer]-C Primary Care Provider Active Start: September 11, 2023 End: September 10ivania DIAS , APRNAttenninoska ProviderActiveStart: September 11, 2023 End: September 11, 2023 Team Status: Inactive Member Role Status Dates Davina Razo APRN [employer]-C Primary Care Provider Active Start: September 19, 2023 End: September 18enemerson Potter , DOAttending ProviderActiveStart: September 19, 2023 End: September 19, 2023 Team Status: Inactive Member Role Status Dates Davina Razo APRN [employer]-C Primary Care Provider Active Start: October 072023 End: October 17enemerson Potter , DOAttending ProviderActiveStart: October 18, 2023 End: October 18, 2023Team MemberRelationshipSpecialtyStart DateEnd Date Ra Potter MD [address] [place] [address] PCP - GeneralInternal Biqmcsah99/6/24Team MemberRelationshipSpecialtyStart Date End Date Ra Potter MD [address] [place] [address] PCP - GeneralInternal Vcsttivd12/6/24Team MemberRelationshipSpecialtyStart Date End Date Ra Potter MD [address] [place] [address] PCP - GeneralSt. Mary'S Hospitalnal Uvjzhjyk68/6/24 Team Status: Inactive Member Role Status Dates DO Marlyn Costello Active Start : February 15, 2024 End: February 15, 2024Team MemberRelationshipSpecialtyStart DateEnd Date Ra Potter MD [address] [place] [address] PCP - GeneralSt. Mary'S Hospitalnal Dtgaaunz70/6/24Team MemberRelationshipSpecialtyStart Date End Date Ra Potter MD [address] [facility] [place] [address] [facility] - [facility]12/13/23 Team Status: Active Member Role Status [...] BE BASED ON THE PRIMARY CLINICAL RECORDS. [facility] [employer] [facility]. provides no warranty or guarantee of the accuracy or completeness of information in this document.
--- OUTSIDE RECORDS SUMMARY | 2024-12-25 08:24 | XMS_ITS | CCD ---
Author Organization [facility] Care Team Providers Care Inclusion Special Educator Name Role Phone JUANITA DIAZ Unavailable Unavailable MAXWELL RAMIREZ Unavailable Unavailable MAXWELL RAMIREZ Unavailable Unavailable JAMES, MAXWELL Unavailable Unavailable Kitty Byrnes Unavailable Ra Potter MD Primary Care Provider Jethro Chavez DO Attending Provider Jethro Chavez Attending Unavailable Jethro Chavez Admitting Unavailable Lisa Guardado APRN Attending Provider Ra Potter DO Primary Care Provider Ra Potter DO Attending Provider [phone] Medications Current Medications MedicationDrug Class(es)DatesSig (Normalized)Sig (Original)azithromycin 250 mg oral tablet (1 source)Macrolide AntimicrobialStart: 92-75-4784Rkqwajrnv 250 MG 2 tablet on the first day, then 1 tablet daily for 4 days Orally Once a day for 5 day(s) Jan, Activebenzonatate 100 mg oral capsule (1 source)Non-narcotic AntitussiveStart: 32-33-6574ufik 1 capsule by mouth three times daily as neededTessalon Perles 100 MG 1 capsule as needed Orally Three times a day for 10 day(s) 1 capsule p.o. 3 times daily as needed for Jan, Activefluticasone propionate 0.05 mg/actuat metered dose nasal spray (1 source)CorticosteroidStart: 15-88-2474uccl 2 spray(s) nasal route once daily Fluticasone Propionate 50 MCG/ACT 2 sprays Nasally Once a day for 14 day(s) Jan, ActiveLoratadine (1 source)Claritin Activemupirocin 0.02 mg/mg topical ointment (13 sources)RNA Synthetase Inhibitor AntibacterialStart: 46-96-8637Wzbafakwn 2 % ointment Active 1 APPLIC TOPICAL Twice daily August 28, 2024 12:00am Complies withdrug therapyStart: 09-19-2023 End: 60-74-6126Jijqaronu 2 % ointment Discontinued 1 APPLIC TOPICAL Twice daily 27 11October 18, 2023 12:00amJuly 2024 11:48amNo Name (No Known Home Meds) (1 source)Start: 72-02-7848Xe Name (No Known Home Meds) Active August 28, 2024 12:00am Completed/Discontinued Medications MedicationDrug Class(es)DatesSig (Normalized)Sig (Original)Childrens Vitamins 60 MG (1 source)take 1 tablet by mouth once dailyChildrens Vitamins 60 MG 1 tablet Orally Once a day for 30 day(s) Not-Takingdoxycycline hyclate 100 mg oral capsule (13 sources)Tetracycline-class DrugStart: 09-19-2023 End: 38-23-0224yogr 1 capsule by mouth twice dailyDoxycycline Hyclate 100 mg capsule Discontinued 100 MG PO Twice daily 14 August 28, 2024 12:00am S eptember 2024 2:23pmFluticasone Furoate 27.5 MCG/SPRAY (1 source)Start: 59-30-3110tset 2 puff(s) nasal route once dailyFluticasone Furoate 27.5 MCG/SPRAY 2 puffs Nasally Once a day Oct, Not-Taking methylPREDNISolone 4 mg oral tablet (6 sources)CorticosteroidStart: 09-06-2023 End: 40-56-5091hzzi 1 tablet by mouth onceMethylprednisolone (Medrol (Jason)) 4 mg tablets,dose pack Discontinued 0 PO per package directions September 06, 2023 12:00am September 11, 2023 9:41am PO PER PKG DIRpredniSONE 20 mg oral tablet (2 sources)Start: 08-28-2024 End: 61-45-4082lyha 2 tablets by mouth once dailyPrednisone 20 mg tablet Discontinued 40 MG PO Daily 10 August 28, 2024 12:00am November 04, 2024 2:23pmStart: 29-74-5058wqvo 1 tablet by mouth every twelve hourspredniSONE 20 MG 1 tablet Orally bid for 5 day(s) Jan, Activetriamcinolone acetonide 1 mg/ml topical cream (6 sources)CorticosteroidStart: 09-06-2023 End: 64-51-0211Pxcmezgzeuoyq Acetonide 0.1 % cream Discontinued 1 APPLIC TOPICAL Twice daily 15 7 September 06, 2023 12:00am October 18, 2023 8:42am Apply a thin layer to affected areas twice daily for 7 days Problems Active Problems Problem ClassificationProblemDateDocumented DateEpisodic/ChronicAbdominal pain (1 source)Pain in female pelvis; Translations: [Pelvic and perineal pain] 46-46-8296QhxtcluuJgbcmplka infection; unspecified site (6 sources)Staphylococcal infectious disease; Translations: [Unspecified staphylococcus as the cause of diseases classified elsewhere]77-78-9472Qwkzdnsq Conditions associated with dizziness or vertigo (5 sources)Labyrinthitis, unspecified ear; Translations: [Vertigo]Onset: 072300-43-9940TozqiddwR Codes: Natural/environment (9 sources)Insect bite - wound; Translations: [Bitten or stung by nonvenomous insect and other nonvenomous arthropods, initial encounter]27-07-6847Dvxdixoq Menstrual disorders (16 sources)Menorrhagia; Translations: [Excessive and frequent menstruation with regular cycle]Onset: 416405-58-9768FvjfehrItdbr female genital disorders (1 source)Abnormal uterine bleeding; Translations: [Abnormal uterine and vaginal bleeding, unspecified]66-95-8327OfcnlldGtygu screening for suspected conditions (not mental disorders or infectious disease) (12 sources)Patient encounter status; Translations: [Encounter for screening for malignant neoplasm of colon]88-33-2414RifbvqljEmgfb skin disorders (5 sources)Folliculitis; Translations: [Follicular disorder, unspecified] 52-85-4257DwrpkjiqFosyc skin disorders (1 source)Follicular disorder, unspecified; Translations: [Other specified diseases of hair and hair follicles]76-92-5216CtpkhryjKzohw upper respiratory disease (2 sources)Allergic rhinitis; Translations: [Allergic rhinitis, unspecified] 83-75-8490OtaruvdEknohdkkq or history of mental health and substance abuse (1 source)Personal history of nicotine dependence; Translations: [PERSONAL HISTORY OF NICOTINE DEPEND]Onset: 59-99-1195CqrtegdxQikhzvc (4 sources)Syncope and collapse; Translations: [SYNCOPE AND COLLAPSE]Onset: 54-03-1216Uthcvyjh Past or Other Problems Problem ClassificationProblemDateDocumented DateEpisodic/ChronicAllergic reactions (3 sources)Inflammatory dermatosis; Translations: [Dermatitis, unspecified] Onset: 892582-12-3459MdyjwmrdQtybrss obstructive pulmonary disease and bronchiectasis (1 source)Bronchitis, not specified as acute or chronicOnset: 01-16-2021 Resolved: 77-65-5698KwigdjzzEojosfmespioh symptoms and ill-defined conditions (3 sources)Increased frequency of urination; Translations: [Frequency of micturition]Onset: 365375-33-9421YfjgkzvvXyetwoxuxfxzu and screening for infectious disease (1 source)Contact with and (suspected) exposure to other viral communicable diseasesOnset: 01-16-2021 Resolved: 35-87-6304DxbvpsbrObscmym and fatigue (3 sources)Fatigue; Translations: [Other fatigue]Onset: EpisodicOther connective tissue disease (3 sources)Prepatellar bursitis of right knee; Translations: [Prepatellar bursitis, right knee]Onset: 641867-76-6114WytyvwphAatud skin disorders (7 sources)Hirsutism; Translations: [Hirsutism]Onset: EpisodicOther upper respiratory infections (1 source)Acute sinusitis, unspecifiedOnset: 01-16-2021 Resolved: 48-47-2946Cqtipqgc Results Test NameValueInterpretationReference RangeFacilityECG 12-LEADon 91-12-3896X[address] [address] Electrocardiograph Report Signed Patient: DELVIS SALCEDO MR#: [id number] : 1980 Acct:[id number] Age/Sex: 44 / F ADM Date: 03/06/24 Loc: PST Attending Dr: Jethro Chavez D.O. Ordering Physician: Jethro Chavez D.O. 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 Signed By: 03/07/24 0656 DD/ 1026 TD/TT: Veteran Appeals Reviewer:TBHRadiology, Radiologist, MD - 03/07/2024 [place] [address] Electrocardiograph Report Signed Patient: DELVIS SALCEDO MR#: [id number] : 1980 Acct:[id number] Age/Sex: 44 / F ADM Date: 03/06/24 Loc: PST Attending Dr: Jethro Chavez D.O. Ordering Physician: Jethro Chavez D.O. 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 Signed By: 03/07/24 0656 DD/ 1026 TD/TT: Veteran Appeals Reviewer: CARLOS Merritt 12-LEADOrdered By: Radiologist Radiology on 39-31-4437[facility] Work Phone: ECG 12-LEADon 82-49-5239Okudytgpe Study observation (narrative)CARLOS HealthcareIGP,APTIMA HPV,AGE GDLNon 45-79-8739VKL GDLN ACOG TESTINGNote.[facility] HealthcareComment on above:TESTS RESULT FLAG UNITS REF RANGE LAB Clinician Provided Cytology Information Source.............Cervix;Endocervix No. of containers..01 ThinPrep Vial Age Algo ACOG Greer... 28- FLAG LEGEND: L-Low Normal,H-High Normal,LL-Alert Low,HH-Alert High <-Panic Low,>-Panic High,A-Abnormal,AA-Critical Abnormal Performed at: 01 =G [address] [address] Felipa White MD, HPV APTIMANegativeNegativeLAKEVIEW HOSPITAL HealthcareComment on above:This nucleic acid amplification test detects fourteen high- risk HPV types (16,18,31,33,35,39,45,51,52,56,58,59,66,68) without differentiation. Performed at: =G - [facility], [place] [id number] Broadband Installer: Felipa White MD, Phone: [phone] Performed at: - [address] [id number] Broadband Installer: Felipa White MD, Phone: [phone] IGP, APTIMA HPV, RFX 16/18,45Note.[facility] HealthcareComment on above:TESTS RESULT FLAG UNITS REF RANGE LAB DIAGNOSIS: 02 NEGATIVE FOR INTRAEPITHELIAL LESION OR MALIGNANCY. Specimen adequacy: 02 Satisfactory for evaluation. Endocervical and/or squamous metaplastic cells (endocervical component) are present. Performed by: Norma Paredes, Assembler Fitter (ASCP) . 02 Note: Note 02 The [...] <-Panic Low,>-Panic High,A-Abnormal,AA-Critical Abnormal Performed at: [address] [address] Felipa White MD, BRUSH-SPATULA CERVIX ENDOCERVIX CLINPemiscot Memorial Health SystemsEndometrial biopsyon 96-67-1892EttkgAlejandra Oconnor LPN 02/15/2024 10:30 AM Endometrial biopsy [...] Specimen collected: specimen collected and sent to pathologyEC[facility] ( test) (U)on 65-85-0923Cdstpviaxjgupm and review of laboratory resultsNormNew [facility]ec[facility] Test, UrNegativeNegativePending sale to Novant HealthLon 02-15-2024L Specimen: [id number] Received: 02/16/24 Status: NGHIA Aden Num: [id number] Spec Type: Surgical Subm Dr: Jethro Chavez Tissues: A Endometrium - Biopsy (EMBX) Procedures: HE/2, Gross/Micro L4 Age/ Patient Sex Location Account Attending Physician Delvis Salcedo 44/F LABELL [id number] Jethro Chavez SPEC NUM: [id number] RECD: 02/16/24 STATUS: NGHIA ADEN NUM: [id number] RIO: 02/15/24- SUBM DR: Jethro Chavez ENTERED: 02/16/24 [facility] DR: Eli,Lab SPEC TYPE: Surgical DEPT: GIGI DOBBINS ENTERED BY: [id number] RECV BY: [id number] ORDERED: HE/2, Gross/Micro L4 ORDERED: HE/2, Gross/Micro [...] submitted in a single cassette. (1, corrina, BS50-13) J Microscopic Description Microscopic examinations are performed supporting the above interpretation Specimen: BS25 Received: 02/16/24 Status: NGHIA Keiko Num: [id number] Spec Type: Surgical Subm Dr: Jethro Chavez Tissues: A Endometrium - Biopsy (EMBX) Procedures: /2, Gross/Micro L4 Patient: Delvis Salcedo [id number] (Continued) Specimen: BS25 Received: 02/16/24 (Continued) Signed (signature on file) Leigh Taylor MD 02/19/24 1608 Specimen: BS Received: 02/16/24 Status: NGHIA Aden Num: [id number] Spec Type: Surgical Subm Dr: Jethro Nugent: A Endometrium - Biopsy (EMBX) Procedures: HE/Jose Manuel, Bharat/Tate L4 Patient: Delvis Salcedo [id number] (Continued) Specimen: BS25 Received: 02/16/24 (Continued) CPT Codes 47112 Specimen: BS25 Received: 02/16/24 Status: NGHIA Aden Num: [id number] Spec Type: Surgical Subm Dr: Jethro Kathy Tissues: A Endometrium - Biopsy (EMBX) Procedures: HE/2, Gross/Micro L4 Patient: Delvis Salcedo [id number] (Continued) Signed (signature on file) Isak-Yasir Taylor MD 02/19/[address] [place] [address] Physician GroupCOVID Quick Testingon 80-09-2189TahesjSanta Rosa Medical Center Shoutitout Other CARDIAC KARLI ADMITon 65-27-2685JIHO5.30 ng/mLNormal <=2.37The [facility] CenterComment on above:Performed By: #### JIM FONTANA ####[facility] Wknhfoqrqc30[address] KarenCreatine kinase (CK)84 U/LVfrctw29-584Pez [facility] CenterComment on above:Performed By: #### JIM FONTANA ####[facility] Dqojeqbgwc2123 [address] JudeenINReyna Coag RelTime (Bld)SEE BELOWNormal The [facility] Medical CenterComment on above:Result Comment: <0.034 ng/ml NEGATIVE 0.034-0.119 INDETERMINATE 0.120 AMI CUT OFFPerformed By: #### JIM FONTANA ####[facility] [address] [place] [address] UhzwrBNY49.1 ng/mLNormal<=61.5The [facility] CenterComment on above:Performed By: #### JIM FONTANA ####[facility] Sj[address]opqiwov[address] [place] [address] KarenTROP<0.012Normal<=0.034The [facility] CenterComment on above:Performed By: #### JIM FONTANA ####[facility] Ztrsuygt[address] [place] [address] KarenCBC W MANUAL DIFF on 14-27-7100DEFP #0.2 103/ulNormal0.0-0.3The [facility] CenterComment on above: Performed By: #### JOHANNY ####[facility] [address]wrftex[address] [place] [address] KarenBAND %3 %Normal0-5The [facility] Comment on above:Performed By: #### JOHANNY ####[facility] Gdoundupzu[address] [place] [address] KarenBASOM %0.0 %Critically low 0.2-2.0The [facility] CenterComment on above:Performed By: #### JOHANNY ####[facility] Vwtpizqjcd[address] [place] [address] KarenBasophils Auto #/vol (Bld)0.00 103/ulNormal0.00-0.10The [facility] Comment on above:Performed By: #### JOHANNY ####[facility] [address]qkduqjl[address] [place] [address] KarenBLAST #NormalThe [facility] CenterComment on above:Performed By: #### JOHANNY ####[facility] Cagehhpejq[address] [place] [address] KarenBLAST %NormalThe [facility] CenterComment on above:Performed By: #### JOHANNY ####[facility] Xhrbetrike[address] [place] [address] Jane Eosinophils0.00 103/ulNormal0.00-0.70The [facility] on above: Performed By: #### CBCDALLAS ####[facility] Ltndofuvjq[address] [place], [place] [address]Gerken KarenEosinophils/100 leukocytes0.0 %Critically low0.9-7.0The [facility] on above:Performed By: #### CBCDALLAS ####[facility] Zbpnljbrjm[address] [place], [place] [address]Gerken KarenErythrocyte distribution width Auto Ratio (RBC)12.8 %Aanrlu79.0-15.0The [facility] CenterComment on above:Performed By: #### CBCDALLAS ####[facility] Nyvxgpjayi[address] [place], [place] [address]Ger[address] Jane Erythrocytes (RBC)4.68 106/ulNormal4.20-5.40The [facility] CenterComun[facility] on above:Performed By: #### JOHANNY ####[facility] Icwkyfilsq[address] [place], [place] [address]Gerken KarenErythrocytes (RBC)NormalThe [facility] on above:Performed By: #### CBCDALLAS ####[facility] Euuibioqbu[address] [place], [place] [address]Gerken KarenHematocrit (HCT) 43.0 %Pgilsc68.0-48.0The [facility] on above:Performed By: #### JOHANNY ####[facility] Dulsuaylah[address] [place], [place] [address]Gerken KarenHemoglobin mass conc (Bld)14.8 g/aZBzoqsy03.0-16.0The [facility] on above:Performed By: #### CBCDALLAS ####[facility] Nyufkxgsec[address] [place], [place] [address]Gerken KarenLymphocytes0.66 103/ulCritically low1.20-3.80The [facility] CenterComun[facility] of [facility] on above:Performed By: #### JOHANNY ####[facility] [address] [place], [place] [address]Gerken KarenLymphocytesNormalThe [facility] CenterComment on above: Performed By: #### JOHANNY ####[facility] [address] [place] [address]Gerken KarenLymphocytes/100 .0 %Critically low20.5-60.0The [facility] CenterComment on above:Performed By: #### JOHANNY ####[facility] [address] [place] [address]Gerken KarenLymphocytes/100 leukocytesNormalThe [facility] CenterComment on above: Performed By: #### JOHANNY ####[facility] Jsyxgavhiu4270 [address] QumimGKM12.6 zgMnndjf96.7-34.0The [facility] CenterComment on above:Performed By: #### JOHANNY ####[facility] Qjgswovqq[address] [place] [address] KarenMCHC mass conc (RBC)34.4 g/jHWjwpxy38.9-35.2The [facility] CenterComment on above:Performed By: #### JOHANNY ####[facility] Inj[address] [place] [address] OgvclKUO25.9 pASootss44.0-99.0The [facility] CenterComment on above:Performed By: #### JOHANNY ####[facility] Yfrnxmnv[address] [place] [address] KarenMETAMYELOCYTE #NormalThe [facility] Comment on above:Performed By: ###Virgen ORLANDO ####[facility] Cexailguoa[address] KarenMETAMYELOCYTE %NormalThe [facility] CenterComment on above:Performed By: #### JOHANNY ####[facility] [address]qjbz[address] [place] [address] KarenMONOM# 0.40 103/ulNormal0.30-0.80The [facility] CenterComment on above:Performed By: #### JOHANNY ####[facility] [address] [place] [address] KarenMONOM%6.0 %Normal1.7-12.0The [facility] CenterComment on above: Performed By: #### JOHANNY ####[facility] Jsfnrybvte[address] [place], [place] [address]Zkgnos KarenMYELOCYTE #NormalThe [facility] Comment on above:Performed By: #### JOHANNY ####[facility] Mjdaijyimr[address] [place], [place] [address]Qbvzuc KarenMYELOCYTE %NormalThe [facility] CenterComment on above:Performed By: #### JOHANNY ####[facility] [address]iulf[address] [place] [address] KarenPlatelet mean volume (PMV)11.3 fLNormal9.5-13.5The [facility] CenterComment on above:Performed By: #### JOHANNY ####[facility] [address] [place] [address] QomwcOtxwsajfc200 103/ulCritically igf908-530Blh [facility] CenterComment on above:Performed By: #### JOHANNY ####[facility] W[address] [place], [place] [address]Gerken KarenSEG #5.35 103/ul Normal1.40-6.50The [facility] Medical Centerment on above:Performed By: #### JOHANNY ####[facility] [address]pi[address]rm[address] [place] [address] KarenSegmented Neutrophils/100 stngpthceo37.0 %Critically high43.0-75.0The [facility] CenterComment on above:Performed By: #### JOHANNY ####[facility] [address] [place] [address] KarenWBC (Leukocytes)6.6 103/ulNormal4.0-11.0The [facility] CenterComment on above: Performed By: #### JOHANNY ####[facility] [address] [place] [address] KarenWBC (Leukocytes)Normal4.0-11.0The [facility] CenterComment on above:Performed By: #### JOHANNY ####[facility] Lnutkzdwqo[address] [place], [place] [address]Eqjjdh KarenER URINE PROFILE on 24-96-3148Kosdfbskh (total)NegativeNormalNEGATIVEThe [facility] CenterComment on above:Performed By: #### MIRTA CHAMPAGNE ####[facility] Uflrsflgho[address] [place], [place]Gerken KarenBLOODTRACE-INTACTNormalNEGATIVE The [facility] CenterComment on above:Performed By: #### MIRTA CHAMPAGNE ####[facility] Hhuutrqpyj3670 [place], [place]Gerken KarenERUAHDA micrscopic examination will be performed if indicated.NormalThe [facility] CenterComment on above:Performed By: #### MIRTA CHAMPAGNE ####[facility] [address] [place] [address]Gerken KarenGlucose mass concNegativeNormalNEGATIVEThe [facility] CenterComment on above:Performed By: #### MIRTA CHAMPAGNE ####[facility] [address]cmxvkdr[address] [place] [address]Gerken KarenpH of blood6.0 [pH]Normal5-9The [facility] CenterComun[facility] of [facility] on above:Performed By: #### MIRTA CHAMPAGNE ####[facility] [address]ujpkzdrxl[address] [place], [place]Gerken KarenProteinNegative NormalThe [facility] CenterComment on above:Performed By: #### MIRTA CHAMPAGNE ####[facility] Flkpoungcj[address] [place], [place] [address]Gerken KarenSPEC GRAVITY1.676Pfqtcd7.005-<=1.025The [facility] Medical Centerment on above: Performed By: #### MIRTA CHAMPAGNE ####[facility] [address]nihqg[address] [place] [address]Gerken KarenUR MICRO INDINDICATEDNormalThe [facility] CenterComment on above:Performed By: #### MIRTA CHAMPAGNE ####[facility] [address] [place], [place] [address]Gerken KarenUrine, clarity CLEARNormalThe [facility] HospitalComment on above:Performed By: #### MIRTA CHAMPAGNE ####[facility] Vlmwvcugat[address] [place] [address]Gerken KarenUrine, colorYELLOWNormalYELLOWEast [place] [facility] HospitalComment on above: Performed By: #### MIRTA CHAMPAGNE ####[facility] Ayjlvlndlm[address] KarenUrine, ketones presenceNegativeNormal NEGATIVEEast [place] [facility] HospitalComment on above:Performed By: #### MIRTA CHAMPAGNE ####[facility] Mftvqygiky[address] KarenUrine, nitrite presenceNegativeNormalNEGATIVEEast [place] [facility] HospitalComment on above:Performed By: #### MIRTA CHAMPAGNE ####[facility] Uuzistxkax[address] KarenUrine, urobilinogen0.2 {Stephanie'U}/dLNormalThMarietta Memorial Hospital HospitalComment on above:Performed By: #### MIRTA CHAMPAGNE ####[facility] [address]ox[address] [place] [address] KarenWBC (Leukocytes)NegativeNormalNEGATIVEEast [place] [facility] Hospital Comment on above:Performed By: #### MIRTA CHAMPAGNE ####[facility] Iyemhfcqgi[address] KarenPREG HCG QUALon 18-08-4536WQOTUEKZV, QUALNegativeNormalNEGATIVEEast [place] [facility] HospitalComment on above:Performed By: #### PREG ####[facility] Yb[address]mthar[address] [place] [address] KarenPROF CHEM 8 (BAS METB)on 14-77-0244Qfmsr gap12.5 mmol/LNormalEast [place] [facility] HospitalComment on above:Performed By: #### BMP, CMADM ####[facility] Rlovljejoj[address]53 [address] KarenBUN/Creatinine Ratio16.1 mg/mgNormalThe [facility] Comment on above:Performed By: #### ADDI, CMAJESSIE ####[facility] [address] [place] [address]Gerken KarenCalcium9.6 mg/dL Normal8.4-10.2The [facility] CenterComment on above:Performed By: #### ADDI, CMADM ####[facility] Ruwbxgvbqw7573 [place], [place] [address]Gerken CmxcsNjbxzpbm430 mmol/YOepjiv58-064Nda [facility] CenterComment on above:Performed By: #### ADDI, CMAJESSIE ####[facility] D[address] [place], [place] [address]Gerken WclphOI639.0 mmol/HTtjrch72.0-30.0The [facility] Medical CenterComment on above:Performed By: #### ADDI, CMAJESSIE ####[facility] Glcuj[address] [place], [place] [address]Gerken Jane Creatinine0.74 mg/dLNormal0.52-1.04The [facility] CenterComment on above: Performed By: #### ADDI, CMADM ####[facility] Exwghiyv[address] [place], [place] [address]ken KareneGFR (non-black)mL/min/{1.73_m2}Normal>=60 The [facility] CenterComment on above:Performed By: #### ADDI, CMADM ####[facility] Dialaoamwi[address] [place], [place] [address]Gerken KarenGlucose mass conc94 mg/rWSnrcmx02-252Snp [facility] CenterComment on above:Performed By: #### ADDI, CMADM ####[facility] Pplw[address]whx[address] [place], [place] [address]ken KarenPotassium molar conc4.2 mmol/LNormal 3.4-5.0The [facility] CenterComment on above:Performed By: #### ADDI, CMAJESSIE ####[facility] Eeeusbdkbw[address] [place], [place] [address]ken DjrbuRwjjcd616 mmol/ZMuterl001-520Fyy [facility] CenterComment on above: Performed By: #### ADDI, CMADM ####[facility] [address] [place] [address]Gerken KarenUrea mxackydk07.0 mg/dLNormal7.0-17.0The [facility] CenterComment on above:Performed By: #### ADDI, CMADM ####[facility] Zw[address]otxxml[address] [place], [place] [address]Ohemrj KarenURINE MICROSCOPIC ONLYon 99-02-7555LXJKSXCS SEENNormalNONE SEENWestern [facility] Hospital Comment on above:Performed By: #### IHSAN UMICRO ####[facility] Llmyabsjdl[address] [place], [place]Gerken KarenCULTURENOT INDICATEDBrecksville VA / Crille HospitalComment on above:Performed By: #### IHSAN UMICRO ####[facility] Fl[address] [place] [address]Gerken KarenErythrocytes (RBC)8-7Xemxvi3-2Sws [facility] CenterComment on above:Performed By: #### IHSAN UMICRO ####[facility] Jsm[address]awu[address] [place], [place]Gerken KarenMUCOUSMODERATENormalNONE SEENWestern Reserve HospitalComment on above:Performed By: #### IHSAN UMICRO ####[facility] Ek[address] [place] [address]Gerken KarenUrine, bacteria in sedimentNONE SEENNormalNONE SEENWestern Reserve HospitalComment on above:Performed By: #### IHSAN UMICRO ####[facility] O[address] [place], [place]Gerken KarenUrine, crystals in sedimentNONE SEEN NormalNONE SEENWestern Reserve HospitalComment on above:Performed By: #### IHSAN UMICRO ####[facility] B[address] [place] [address]Gerken KarenUrine, epithelial cells in sedimentFELima City HospitalComment on above:Performed By: #### ERUR, UMICRO ####[facility] L[address]bkols[address] [place], [place]Aurelio LaraWBC (Leukocytes) NONE SEENNormalNONE SEENWestern Reserve HospitalComment on above:Performed By: #### ERUR, UMICRO ####[facility] Cybgzxlsju[address] [place], [place]Aurelio Lara Vital Signs Date TimeVital SignValuePerforming YgdzutqeiNemkelry41-91-4606 14:27-0400Body pordcp083.1 cmBenjamin Ball DO Work Phone: [phone])[address] [place], [place] [address]430109-29-2025 14:27-0400 Body mass index (BMI) [Ratio]24.3 kg/b4Jytbmqrt Ball DO Work Phone: [phone])[address] [place], [place] 8430109-29-2025 14:27-0400 Body vzpzuv67.28 kgBenjamin Ball DO Work Phone: 1(419)[address] [place], [place] 843[address]09-29-2025 14:27-0400 Diastolic blood wjucxums86 mm[Hg]Ra Ball DO Work Phone: 1(419)[address] [place], [place] [address]43[address]09-29-2025 14:27-0400 Heart rate88 /minBenjamin Ball DO Work Phone: 1(419)[address] [place], [place] [address]09-29-2025 14:27-0400 Respiratory rate12 /minBenjamin Ball DO Work Phone: 1(419)[address] [place], [place] 843[address]09-29-2025 14:27-0400 Systolic blood susnkycb106 mm[Hg]Ra Ball DO Work Phone: 1(419)[address] [place], [place] [address]43[address]07-23-2025 11:49-0400 Body ehdcws164.1 cmBenjamin Ball DO Work Phone: [phone])[address] [place], [place] 843[address]07-23-2025 11:49-0400 Body mass index (BMI) [Ratio]23.9 kg/c4Czudshnb Ball DO Work Phone: 1(787)[address] [place], [place] 843[address]07-23-2025 11:49-0400 Body mcvvwdgthye89.6 [degF]Ra Ball DO Work Phone: 1(892)[address] [place], [place] 843[address]07-23-2025 11:49-0400 Body fdryit96.31 kgBenjamin Ball DO Work Phone: 1(602)[address] [place], [place] 8430107-23-2025 11:49-0400 Diastolic blood kwldsyrk41 mm[Hg]Ra Ball DO Work Phone: 1(915)[address] [place], [place] 843[address]07-23-2025 11:49-0400 Heart rate78 /minBenjamin Ball DO Work Phone: 1(435)[address] [place], [place] 843[address]07-23-2025 11:49-0400 Respiratory rate14 /minBenjamin Ball DO Work Phone: 1(172)[address] [place], [place] 8430107-23-2025 11:49-0400 SaO2% (BldA) [Mass fraction]99 %Ra Ball DO Work Phone: 1(206)[address] [place], [place] 8430107-23-2025 11:49-0400 Systolic blood behqkgvf980 mm[Hg]Ra Ball DO Work Phone: 1(023)[facility] [place], [place] [address]0101-21-2025 10:48-0500 Body mass index (BMI) [Ratio]24.3 kg/z1Kcwza Kathy DO Work Phone: [facility] HospitalQkkcvvrcjj36-45-6742 10:48-0500Body cobgzy48.22 kgCorey Kathy DO Work Phone: 1(897)831-[address] [place], [place] [address]Hssrhgqtcc75-85-8686 10:48-0500Diastolic blood mm[Hg]Jethro Kathy DO Work Phone: [phone])164-[facility] HospitalUyxgdlzttl28-30-6689 10:48-0500Systolic blood sijaksag065 mm[Hg]Jethro Kathy DO Work Phone: 1(988)940-[facility] CountyL[facility] HospitalFrohxwmqjw88-32-6067 09:44-0500Body mass index (BMI) [Ratio]25.13 kg/k4Gjlmz Kathy DO Work Phone: [facility] HospitalFqjnogkdfb36-53-5453 09:44-0500Body ohwuky18.49 kgCorey Kathy DO Work Phone: [facility] HospitalSxdyroczad60-24-3294 09:44-0500Diastolic blood ebbyqefr56 mm[Hg]Jethro Kathy DO Work Phone: 1(606)935-[facility] HospitalYxvdeckhzn10-00-7242 09:44-0500Systolic blood ehxqeuks707 mm[Hg]Jethro Kathy DO Work Phone: 1(908)019-[address] [place], [place] [address]Umhdyzcqfz87-72-4623 13:53-0500Body nhhxbi622.1 cmCorey Kathy DO Work Phone: 1(649)465-[address] [place], [place] [address]Bpsaclxinl74-31-8071 13:53-0500Body mass index (BMI) [Ratio]24.1 kg/d9Mbuud Kathy DO Work Phone: 1(862)127-[address] [place], [place] [address]Syjhjusuel50-74-7638 13:53-0500Body .68 kgCorey Kathy DO Work Phone: 1(169)279-[address] [place], [place] [address]Wjvywxkvlm09-25-0533 13:53-0500Diastolic blood fontujfx45 mm[Hg]Jethro Kathy DO Work Phone: 1(124)970-[address] [place], [place] [address]Nnhrpnhhlw72-15-5889 13:53-0500Systolic blood kgoixwur226 mm[Hg]Jethro Kathy DO Work Phone: 1(970)045-[facility] HospitalTsvxbqtztk32-14-6335 08:42-0400Body dyewsx299.1 cmOhio[facility]09-11-2024 08:42-0400Body mass index (BMI) [Ratio]24.7 kg/w0LhofivxfyOhiohealth Doctors Hospital09-11-2024 08:42-0400Body .3 kgOhiohealth Doctors Hospital09-11-2024 08:42-0400Diastolic blood vqrnxhge89 mm[Hg][facility]09-11-2024 08:42-0400 Heart rate74 /[facility]09-11-2024 08:42-0400 Respiratory rate12 /[facility]09-11-2024 08:42-0400 Systolic blood mm[Hg][facility]08-13-2024 08:58-0400Body zlwaql879.1 cmOhiohealth Doctors Hospital08-13-2024 08:58-0400Body mass index (BMI) [Ratio]23.7 kg/u3SlczabzbrOhiohealth Doctors Hospital08-13-2024 08:58-0400Body .63 kgOhiohealth Doctors Hospital 09-19-2023 08:58-0400Diastolic blood zxycwled60 mm[Hg][facility]08-13-2024 08:58-0400Heart rate79 /[facility] 09-19-2023 08:58-0400Respiratory rate12 /[facility] 09-19-2023 08:58-0400Systolic blood fjadynzs232 mm[Hg][facility]08-05-2024 09:40-0400Body upbbpp803.1 cmOhio[facility] 09-11-2023 09:40-0400Body mass index (BMI) [Ratio]23.3 kg/x2YxdxmodolOhiohealth Doctors Hospital08-05-2024 09:40-0400Body ewcieghbfbz70.4 [degF][facility]08-05-2024 09:40-0400Body gfoekn98.5 [facility]08-05-2024 09:40-0400Heart rate75 /[facility] 09-11-2023 09:40-0400Respiratory rate18 /[facility] 09-11-2023 09:40-0199QgF5% (BldA) [Mass fraction]99 %[facility]07-31-2024 10:56-0400Body vvdkgo183.1 cmOhio[facility] Hospital 09-06-2023 10:56-0400Body mass index (BMI) [Ratio]23.3 kg/o5AxpkzrfuyOhiohealth Doctors Hospital07-31-2024 10:56-0400Body mzwdapyyiic41.4 [degF][facility]07-31-2024 10:56-0400Body ppumek94.5 kgOhiohealth Doctors Hospital07-31-2024 10:56-0400Diastolic blood gzxjxgjy22 mm[Hg][facility]07-31-2024 10:56-0400Heart rate77 /[facility]07-31-2024 10:56-0400Respiratory rate18 /[facility]07-31-2024 10:56-5394EiJ1% (BldA) [Mass fraction]98 %[facility]07-31-2024 10:56-0400Systolic blood zmunlkqm120 mm[Hg][facility]12-11-2021 14:00-0500Body ixxyil154.1 cmPamela Soniya Other [employer] Other 12-11-2021 14:00-0500Body mass index (BMI) [Ratio]20.8 kg/z9UanjyfKitty Byrnes Other [employer] Other 12-11-2021 14:00-0500Body oobhaohmvlg35.1 [degF]Kitty Byrnes Other [employer] Other 12-11-2021 14:00-0500Body vhmohv95.7 kgKitty Byrnes Other [employer] Other 12-11-2021 14:00-0500Respiratory rate18 /Shawna Byrnes Other [employer] Other 12-11-2021 14:00-9934VoX1% (BldA) [Mass fraction]99 % Kitty Geemond Other [employer] Other Encounters Encounter DateEncounter TypeCare ProviderFacilityStart: 11-04-2024 End: 07-53-3478rsggjdvmdgUgbrcrem Ball DO Work Phone: [place] [address] Work Phone: Start: 11-04-2024 End: 19-80-9732Wqkiilc encounter procedureBefernieemerson Potter DO-[facility] Work Phone: Start: 11-04-2024 End: 23-27-2172Meyeofi encounter statusBeginger Potter [facility] Centertart: 08-28-2024 End: 44-22-4049tdmkfijzllQokcxxga Ball DO Work Phone: [facility] Work Phone: Start: 08-28-2024 End: 61-89-9013Mkyeqhn encounter procedureKirillsonny Hyman MEDICAL TRANSLATOR-[facility] Work Phone: Start: 03-06-2024 End: 69-38-5158Wohoiyxtt Result EncounterCorey Kathy DO Work Phone: [facility] External Department UnsolicitedStart: 03-06-2024 End: 67-99-5457Hvlopseng Result EncounterCorey Kathy DO Work Phone: [facility] External Department UnsolicitedStart: 02-27-2024 End: 27-43-9867Ftxoiq flowsheetCorey Kathy DO Work Phone: [facility] BCP OBStart: 02-27-2024 End: 61-79-9955Tysfvf flowsheetCorey Kathy DO Work Phone: [facility] BCP OBStart: 02-27-2024 End: 18-36-3696Mnlaqauwu Result EncounterCorey Kathy DO Work Phone: [facility] External Department UnsolicitedStart: 02-27-2024 End: 56-98-1973Aarsmoz encounter procedureCorey Kathy DO Work Phone: noms HealthcareStart: 02-27-2024 End: 69-06-9423Kgrapbjq preventive med est patient 40-64yrsCorey Kathy DO Work Phone: [facility] BCP OBComment on above:Well woman exam with routine gynecological exam; Breast cancer screening by mammogram; Pre-op examination; Menorrhagia with regular cycle; Abnormal uterine bleeding; Pelvic pain in femaleStart: 02-27-2024 End: 86-26-7456Scsxvqbcdmqut examination doneCorey Kathy DO Work Phone: [facility] HealthcareStart: 02-15-2024 End: 49-52-7468Khyiuac encounter procedureCorey Kathy DO Work Phone: [facility] BCP OBComment on above:Menorrhagia with regular cycleStart: 02-15-2024 End: 97-69-0426sfjzegdanvLwgzc FaTriHealth McCull[facility] Work Phone: Start: 02-15-2024 End: 85-83-4108Vxzfwqrk ReferredCorey Kathy DO Work Phone: [facility]-LAB Path Spec [facility] HospStart: 12-13-2023 End: 56-29-5930Okktzq flowsheetCorey Kathy DO Work Phone: [facility] BCP OBStart: 12-13-2023 End: 38-01-3067Zfexyu flowsheetCorey Kathy DO Work Phone: [facility] BCP OBStart: 12-13-2023 End: 33-54-2009Khxyge outpatient visit 15 minutesCorey Kathy DO Work Phone: [facility] BCP OBComment on above:Irregular menstrual bleedingStart: 10-18-2023 End: 50-93-3684dpvtoljoltYwzbisruu Regional [facility] Center Work Phone: Start: 10-18-2023 End: 13-25-1235Eqnxjaftu for general adult medical examination without abnormal findingsTriHealth McCullough-Hyde Memorial Hospitaltart: 10-18-2023 End: 53-02-9892Nazkmbs encounter procedureAt[facility] Work Phone: Start: 14-45-3866Dtzkvbn encounter statusTriHealth McCullough-Hyde Memorial Hospitaltart: 09-19-2023 End: 49-49-5960mvgawvskjbIumhyftrvMer[facility] Health [facility] Work Phone: Start: 09-19-2023 End: 41-66-6768Wynzxjk encounter procedureAtrium Health [facility] Physician [facility] Work Phone: Start: 09-11-2023 End: 98-81-3513hvekztjucjUwlzsgetyAkron Children's Hospital Work Phone: Start: 09-11-2023 End: 63-22-0543Ukjbued encounter procedureAtrium Health [facility] Physician [facility] Work Phone: Start: 09-06-2023 End: 34-39-6370tfydncbswcMtthcsayfAkron Children's Hospital Work Phone: Start: 09-06-2023 End: 22-34-3339Xtaurar encounter procedureAtrium Health [facility] Physician [facility] Work Phone: Start: 01-16-2021(URG) Urgent Care VisitPamela Soniya [facility] Urgent Care ClydeStart: 01-16-2021 End: 38-32-9192samkdypjrrGzfevv Soniya Other [place] [employer] Other Start: 06-14-2017 End: 14-54-3750RjebycgipjRQJSXA [place] BRAUNFacility:H1 Procedures DateProcedureProcedure DetailPerforming ClinicianStart: 56-71-4592KDG 12-LEAD Jethro Kathy DO Work Phone: Start: 83-90-9132MOT,APTIMA HPV,AGE GDLNCorey Kathy DO Work Phone: Start: 38-91-6571BQNMIIAOJLP BIOPSYCorey Kathy DO Work Phone: Start: 84-76-4857Kyfrr test visual color cmprsn methsCorey Kathy DO Work Phone: Plan of Treatment DateCare ActivityDetailAuthorStart: 02-27-2024 End: 92-68-6407OA Breast - bilateral ScreeningBilateral screening mammogram Imaging Routine Breast cancer screening by mammogram Expected: 02/27/2024 (Approximate), Expires: 04/26/2025[facility] Work Phone: comment on above:Expected: 02/27/2024 (Approximate), Expires: 04/26/2025Start: 02-27-2024 End: 14-76-1280Tvfkkzu encounter procedureNOMS BCP OBComment on above:Arrived Start: 02-21-2024 End: 26-06-5620Csdvpktxnnou / ancillary services cofugbfjxp17/15/2025 11:00 AM EST Ancillary Procedure [facility] [address] [place] [address] [facility] BCP OBStart: 02-15-2024 End: 48-70-3764GM PelvisUS Pelvis w/ TV Imaging Routine Menorrhagia with regular cycle Expected: 02/15/2024, Expires: 02/14/2025[facility] Work Phone: comment on above:Expected: 02/15/2024, Expires: 02/14/2025Start: 01-17-2024 End: 85-34-9531Gtzbosp encounter ytpicyopy81/11/2024 2:40 PM EST Consult [facility] [place] [facility] [place] [address] Jethro Chavez, DO [address] [place], [place] [address] [facility] BCP OBStart: 01-08-2024 End: 39-51-1020Nqknqnl encounter caacrrtls82/02/2024 1:30 PM EST Procedure Visit [facility] [address] [place] [address] Jethro Chavez, DO [address] [place], [place] [address] [facility] BCP OBStart: 12-13-2023 End: 98-09-7028MF for pregnancyUS PELVIS-TRANSVAG IF INDICATED Imaging Routine Irregular menstrual bleeding Expected: 12/13/2023 (Approximate), Expires: 12/12/2024[facility] Work Phone: comment on above:Expected: 12/13/2023 (Approximate), Expires: 12/12/2024omprehensive metabolic 1999 panel - Serum or PlasmaOhiohealth Doctors HospitalComprehensive metabolic 1999 panel - Serum or Plasma [facility] HospitalMG Breast - bilateral ScreeningOhiohealth Doctors HospitalMG Breast - bilateral ScreeningOhiohealth Doctors HospitalTHIN PREP TIS PAP AND HR HPV DNATHIN PREP TIS PAP AND HR HPV DNA Pathology and Cytology Routine Well woman exam with routine gynecological exam Ordered: 02/27/2024[facility] HospitalComment on above:Ordered: 02/27/2024[facility] Payers DatePayer CategoryPayerPolicy [id number] Cross Blue ShieldBCBS Member Subscriber Plan / Payer (Effective 2021-Present) Name: Delvis Salcedo Relation to Subscriber: Spouse Name: Elías Salcedo Date of : 1976 (Work) Address: [address] [place] [id number] Payer ID: Janon file Type: Not on file Address: [facility] [id number] [place] [id number] Social History DateTypeDetailFacilitySex Assigned At BirthNorth [facility] Other Start: 09-06-2023 End: 12-34-1985Unmmqhs smoking status NHISNever smoked tobacco (finding) [facility] Hospitaltart: 01-07-8611Bbs Assigned At [facility] HospitalTobacc smoking status NHISTobacco smoking consumption unknownNOMS HealthcareStart: 12-63-9152Uhdbbs identityIdentifies as female gender (finding)[facility] HealthcareStart: 28-25-6360HgtYuzdpj (finding) [facility] Clinical Notes 01-16-2021 to 08-28-2024 Note Date & CrkiOyspSlzohhva01-02-1984 Evaluation note* Diagnosis Onset Date Resolution Status Admit Date Folliculitis deletedJuly 2024 11:47amAllergic rhinitisacuteSeptember 2024 2:22pm Screening mammogram for breast canceracuteSeptember 2024 2:22pmWellness examinationacuteSeptember 2024 2:22pm [facility] Work Phone: 1(708) 290-537001-21-2025 History of Present illness Narrative* Katelynn Miles - 02/27/2024 10:30 AM EST Reason for Appointment: Patient ID: Delvis Salcedo is a 44 y.o. female who presents for Gynecologic Exam and Pre-op Visit Patient presents today for Pre Op/Annual appointment. Patient is scheduled to undergo Endometrial Ablation with Ramona on 03/15/[address] Chavez at [facility]. MEDICATIONS No current outpatient medications [...] reviewed, and patient is to proceed to [facility]. Follow Up: Patient is to follow up between 1-2 weeks post op to assess proper healing and recovery from procedure. Documented by Jane Samson LPN on behalf of: Jethro Chavez DO documented in this encounterLakeland Regional HospitalLrxlvsotbq03-50-1272 History of Present illness Narrative* Alejandra Oconnor [...] nursing note reviewed. Exam conducted with a slubber hand present. Vitals: Estimated body mass index is [...] of: Jethro Chavez DO documented in this encounterLakeland Regional HospitalDqeixmptsn96-61-2848 History of Present illness Narrative* Jane Samson [...] nursing note reviewed. Exam conducted with a slubber hand present. Vitals: Estimated body mass index is [...] of: Jethro Chavez DO documented in this encounterLakeland Regional HospitalAizqxeavto70-52-8895 Evaluation note* Encounter Date Diagnosis Assessment Notes [...] Patient care instructions given in writting by [facility] Care At Home document. [employer] [facility] [employer] Other Evaluation noteNo assessment information available [facility] Work Phone: Evaluation note* Diagnosis Onset Date Resolution Status Insect bites acuteInsect bitesacute [facility] Work Phone: Evaluation note* Diagnosis Onset Date Resolution Status Insect bites acuteInsect bitesacuteStaph infectionacuteBug bite with infectionnoneactive [facility] Work Phone: Evaluation note* Diagnosis Onset Date Resolution Status Staph infection acuteBug bite with infectionnoneactiveFolliculitisacuteScreening for colon canceracuteScreening mammogram for breast canceracuteWellness examinationacute [facility] Work Phone: Evaluation note* Diagnosis Irregular menstrual [...] Reported* Type Description Date Medical History vertigo [facility] [employer] Other Reason for referral (narrative)No reason for referral information availableCincinnati Children'S Hospital Medical Center Work Phone: Summary Purpose Family History No [...] section and content) DATE CREATED AUTHOR 07/26/2017 [facility] DATE CREATED AUTHOR AUTHOR'S ORGANIZ ATION 02/21/2024 [facility] REASON FOR VISIT (unrecogniz ed section and content) ReasonCommentsMenstrual ProblemReasonCommentsMenorrhagiaReasonComments Gynecologic ExamPre-op Visit Care Teams (unrecognized sec tion and content) Team Status: Active Member Role Status Dates Davina Razo APRN MOTOR ANALYST-C Primary Care Provider Active Team Status: Inactive Member Role Status Dates Davina Razo APRN MOTOR ANALYST-C Primary Care Provider Active Start: September 06, 2023 End: September 05Kenton Blevins ProviderActiveStart: September 06, 2023 End: September 06, 2023 Team Status: Inactive Member Role Status Dates Davina Razo APRN MOTOR ANALYST-C Primary Care Provider Active Start: September 11, 2023 End: September 10Kenton Blevins ProviderActiveStart: September 11, 2023 End: September 11, 2023 Team Status: Inactive Member Role Status Dates Davina Razo APRN MOTOR ANALYST-C Primary Care Provider Active Start: September 06, 2023 End: September 05Kenton Georges ProviderActiveStart: September 06, 2023 End: September 06, 2023 Team Status: Inactive Member Role Status Dates Davina Razo APRN MOTOR ANALYST-C Primary Care Provider Active Start: September 11, 2023 End: September 10ivania DIAS , APRNAttenninoska ProviderActiveStart: September 11, 2023 End: September 11, 2023 Team Status: Inactive Member Role Status Dates Davina Razo APRN MOTOR ANALYST-C Primary Care Provider Active Start: September 19, 2023 End: September 18enemerson Potter , DOAttending ProviderActiveStart: September 19, 2023 End: September 19, 2023 Team Status: Inactive Member Role Status Dates Davina Razo APRN MOTOR ANALYST-C Primary Care Provider Active Start: October 072023 End: October 17enemerson Potter , DOAttending ProviderActiveStart: October 18, 2023 End: October 18, 2023Team MemberRelationshipSpecialtyStart DateEnd Date Ra Potter MD [address] [place] [address] PCP - GeneralInternal Pegycdoa47/6/24Team MemberRelationshipSpecialtyStart Date End Date Ra Potter MD [address] [place] [address] PCP - GeneralInternal Hysjayqi11/6/24Team MemberRelationshipSpecialtyStart Date End Date Ra Potter MD [address] [place] [address] PCP - GeneralOasis Behavioral Health Hospitalnal Iamjjmux93/6/24 Team Status: Inactive Member Role Status Dates DO Marlyn Costello Active Start : February 15, 2024 End: February 15, 2024Team MemberRelationshipSpecialtyStart DateEnd Date Ra Potter MD [address] [place] [address] PCP - GeneralOasis Behavioral Health Hospitalnal Dytfdzgr36/6/24Team MemberRelationshipSpecialtyStart Date End Date Ra Potter MD [address] [place] [facility] [place] [address] PCP - GeneralHuntsman Mental Health Institute12/13/23 Team Status: Active Member Role Status Dates [...] BE BASED ON THE PRIMARY CLINICAL RECORDS. [facility] Re5ult [facility]. provides no warranty or guarantee of the accuracy or completeness of information in this document.
[2024-12-25 08:50] LABS: Hematocrit 42.5 % (36.0-48.0); Hemoglobin 14.6 g/dL (12.0-16.0); Immature Granulocytes Abs Auto 0.01 10^3/uL (0.00-0.03); Immature Granulocytes Pct Auto 0.2 % (0.0-0.5); Lymphocytes Absolute Auto 1.8 10^3/uL (1.2-3.8); Mean Corpuscular HGB Conc 34.4 g/dL (29.9-35.2); Mean Corpuscular Hemoglobin 32.4 pg (26.7-34.0); Mean Corpuscular Volume 94.4 fL (81.0-99.0); Platelet Count 240 10^3/uL (150-450); Red Blood Count 4.50 10^6/uL (4.20-5.40); White Blood Count 5.3 10^3/uL (4.0-11.0)
[2024-12-25 09:12] LABS: Alanine Aminotransferase 23 U/L (14-59); Albumin Globulin Ratio 1.2; Albumin Level 3.9 g/dL (3.4-5.0); Alkaline Phosphatase 44 U/L (46-116); Anion Gap 10.9; Aspartate Amino Transferase 15 U/L (15-37); Blood Urea Nitrogen 17.0 mg/dL (7.0-18.0); Calcium 8.7 mg/dL (8.5-10.1); Carbon Dioxide 28.7 mmol/L (21.0-32.0); Chloride 103 mmol/L (98-107); Cholesterol 204 mg/dL (<=200); Estimated GFR (African America >60 (>=60 mL/min/1.73m^2); Estimated GFR (Non-African Ame >60 (>=60 mL/min/1.73m^2); Globulin 3.3 g/dL; Glucose 88 mg/dL (74-106); HDL Cholesterol 61 mg/dL (40-60); Potassium 4.6 mmol/L (3.5-5.1); Sodium 138 mmol/L (136-145); Thyroid Stimulating Hormone 2.347 uIU/mL (0.358-3.740); Total Protein 7.2 g/dL (6.4-8.2); Triglycerides 119 mg/dL (<=150); VLDL CHOLESTEROL 23.8 mg/dL
== END 2024-12-25 08:22 | disposition home or self-care (01) ==
LOC: LAB 08:22
PROVIDERS: PCP Internal Medicine; Visit Provider Internal Medicine
DX: Z00.00 Encounter for general adult medical examination without abnormal findings (principal)
CPT/HCPCS: 36415; 80053; 80061; 84443; 85025